=== PATIENT | male | born 1980 | race African-American/Black ===

== ENCOUNTER 2016-10-12 06:53 | Emergency (ER) | payer SELFPAY ==
[2016-10-12] MEDS ORDERED: KETOROLAC TROMETHAMINE INJ/PF 30 MG/1 ML SDV IV ONE (08:36)
[2016-10-12 09:20] LABS: ABSOLUTE BASOPHILS # (AUTO) 0.1 10^3/uL (0.0-0.2); ABSOLUTE EOSINOPHILS # (AUTO) 0.1 10^3/uL (0.0-0.6); ABSOLUTE LYMPHOCYTES (AUTO) 0.9 10^3/uL (0.5-4.7); ABSOLUTE MONOCYTES (AUTO) 0.7 10^3/uL (0.1-1.4); ABSOLUTE NEUT (AUTO) 3.4 10^3/uL (1.7-8.2); EOSINOPHILS % (AUTO) 2.6 % (0-6); HEMOGLOBIN 13.6 g/dL (13.5-17.0); HGB HCT DIFFERENCE -0.2; LYMPHOCYTES % (AUTO) 17.2 % (13-45); MEAN CORPUSCULAR HGB CONC 33.3 g/dL (32.0-36.0); MEAN CORPUSCULAR VOLUME 90 fl (80-97); MONOCYTES % (AUTO) 13.8 % (3-13); RED BLOOD COUNT 4.54 10^6/uL (4.35-5.55); RED CELL DISTRIBUTION WIDTH 14.2 % (11.5-14.0); SEGMENTED NEUTROPHILS % (AUTO) 65.4 % (42-78); WHITE BLOOD COUNT 5.2 10^3/uL (4.0-10.5)
[2016-10-12 09:27] LABS: APPEARANCE,URINE CLEAR; BILIRUBIN,URINE NEGATIVE (NEGATIVE); GLUCOSE, URINE NEGATIVE (NEGATIVE); KETONES,URINE NEGATIVE (NEGATIVE); LEUKOCYTE ESTERASE,URINE NEGATIVE (NEGATIVE); NITRITE,URINE NEGATIVE (NEGATIVE); PROTEIN,URINE NEGATIVE (NEGATIVE); URINE SPECIFIC GRAVITY 1.014; UROBILINOGEN,URINE NEGATIVE mg/dL (<2.0)
[2016-10-12 09:43] LABS: ALANINE AMINOTRANSFERASE 51 U/L (21-72); ALBUMIN 4.2 g/dL (3.5-5.0); ALKALINE PHOSPHATASE 64 U/L (38-126); ANION GAP 8 (5-19); ASPARTATE AMINO TRANSFERASE 37 U/L (17-59); BILIRUBIN,TOTAL 1.1 mg/dL (0.2-1.3); BLOOD UREA NITROGEN 31 mg/dL (7-20); CALCIUM 9.2 mg/dL (8.4-10.2); CARBON DIOXIDE 29 mmol/L (22-30); CHLORIDE 105 mmol/L (98-107); CREATININE RESULT 1.57 mg/dL (0.52-1.25); GLUCOSE 122 mg/dL (75-110); LIPASE 120.1 U/L (23-300); POTASSIUM 4.3 mmol/L (3.6-5.0); SODIUM 141.9 mmol/L (137-145); TOTAL PROTEIN 7.1 g/dL (6.3-8.2)
[2016-10-12 09:58] LABS: URINE BARBITURATES SCREEN NEGATIVE; URINE METHADONE SCREEN NEGATIVE; URINE OPIATES LOW NEGATIVE; URINE PHENCYCLIDINE SCREEN NEGATIVE
--- NOTE | 2016-10-12 10:15 | ER Document Report ---
ED GI/ - General Chief Complaint: Low Back Pain Stated Complaint: LOW BACK PAIN Mode of Arrival: Ambulatory Information source: Patient Notes: Patient presents complaining of 2 day history of right flank tenderness. Patient denies any urinary symptoms, nausea, vomiting, or diarrhea. Patient denies any specific injury. Patient denies any radiculopathy or paresthesia. Patient denies any IV drug use although does state that he did use cocaine 1 time 3 days ago. Patient denies any routine use of illicit substances. TRAVEL OUTSIDE OF THE [place] IN LAST 30 DAYS: No - HPI Patient complains to provider of: Flank pain. No: Abdominal pain Onset: Other - 2 days Timing/Duration: Persistent Quality of pain: Sharp Pain Level: 5 Location: Right flank Associated symptoms: denies: Diarrhea, Dysuria, Loss of appetite, Nausea, Urinary hesitancy, Urinary frequency, Urinary retention, Urinary urgency, Vomiting Exacerbated by: Movement Relieved by: Remaining still Similar symptoms previously: No Recently seen / treated by doctor: No - Related Data Allergies/Adverse Reactions: No Known Allergies Allergy (Unverified 10/12/16 07:01) Past Medical History - General Information source: Patient - Social History Smoking Status: Current Every Day Smoker Chew tobacco use (# tins/day): No Frequency of alcohol use: Occasional Drug Abuse: Cocaine Occupation: food storeroom clerk Family History: Reviewed & Not Pertinent Patient has suicidal ideation: No Patient has homicidal ideation: No - Past Medical History Cardiac Medical History: Reports: Hx Hypertension Renal/ Medical History: Denies: Hx Peritoneal Dialysis Past Surgical History: Reports: Hx Orthopedic Surgery - Immunizations Hx Diphtheria, Pertussis, Tetanus Vaccination: Yes Review of Systems - Review of Systems Constitutional: No symptoms reported. denies: Fever, Recent illness EENT: No symptoms reported Cardiovascular: No symptoms reported. denies: Chest pain Respiratory: No symptoms reported Gastrointestinal: No symptoms reported. denies: Abdominal pain, Diarrhea, Nausea, Vomiting Genitourinary: Flank pain. denies: Burning, Dysuria Male Genitourinary: No symptoms reported Musculoskeletal: Back pain Skin: No symptoms reported Hematologic/Lymphatic: No symptoms reported Neurological/Psychological: No symptoms reported Physical Exam - Vital signs Vitals: Temp Pulse Resp BP Pulse Ox 97.4 F 77 16 151/96 H 97 10/12/16 06:58 10/12/16 06:58 10/12/16 06:58 10/12/16 06:58 10/12/16 06:58 - General General appearance: Appears well, Alert In distress: None - HEENT Head: Normocephalic, Atraumatic Nasal: Normal Mouth/Lips: Normal Mucous membranes: Normal Pharynx: Normal Neck: Normal, Supple. No: Lymphadenopathy - Respiratory Respiratory status: No respiratory distress Chest status: Nontender Breath sounds: Normal. No: Rales, Rhonchi, Stridor, Wheezing Chest palpation: Normal - Cardiovascular Rhythm: Regular Heart sounds: S1 appreciated, S2 appreciated Murmur: No - Abdominal Inspection: Normal Distension: No distension Bowel sounds: Normal Tenderness: Nontender Organomegaly: No organomegaly - Back Back: CVA tenderness - Right. No: Vertebra tenderness - Extremities General upper extremity: Normal inspection, Normal ROM General lower extremity: Normal inspection, Normal ROM - Neurological Neuro grossly intact: Yes Cognition: Normal Ennice Coma Scale Eye Opening: Spontaneous Cecil Coma Scale Verbal: Oriented Cecil Coma Scale Motor: Obeys Commands Cecil Coma Scale Total: 15 - Psychological Associated symptoms: Normal affect, Normal mood - Skin Skin Temperature: Warm Skin Moisture: Dry Skin Color: Normal Course - Re-evaluation Re-evalutation: 10/12/16 10:[address] Lemos regarding patient presentation. Recommends CT Limited imaging for further evaluation of right flank pain 10/12/16 10:57 Patient states pain is better after pain medication. Patient states that he has been told that he does have some chronic kidney disease that he states is in stage III. Patient states that his pain is worse with movement and if he holds still he is not having any discomfort. Discussed worsening signs or symptoms that patient should return immediately for. Patient verbalized understanding and agrees with plan of care. - Vital Signs Vital signs: Temp Pulse Resp BP Pulse Ox 97.9 F 88 18 161/96 H 100 10/12/16 11:15 10/12/16 11:15 10/12/16 11:15 10/12/16 11:15 10/12/16 11:15 - Laboratory Result Diagrams: 10/12/16 08:50 10/12/16 08:50 Laboratory results interpreted by me: 10/12/16 10/12/16 08:50 08:50 RDW 14.2 H Monocytes % 13.8 H BUN 31 H Creatinine 1.57 H Est GFR (Non-Af Amer) 50 L Glucose 122 H 10/12/16 10:58 Labs- Entire Visit 10/12/16 10/12/16 10/12/16 08:50 08:50 09:00 WBC 5.2 RBC 4.54 Hgb 13.6 Hct 41.0 MCV 90 MCH 30.0 MCHC 33.3 RDW 14.2 H Plt Count 211 Seg Neutrophils % 65.4 Lymphocytes % 17.2 Monocytes % 13.8 H Eosinophils % 2.6 Basophils % 1.0 Absolute Neutrophils 3.4 Absolute Lymphocytes 0.9 Absolute Monocytes 0.7 Absolute Eosinophils 0.1 Absolute Basophils 0.1 Sodium 141.9 Potassium 4.3 Chloride 105 Carbon Dioxide 29 Anion Gap 8 BUN 31 H Creatinine 1.57 H Est GFR ( Amer) > 60 Est GFR (Non-Af Amer) 50 L Glucose 122 H Calcium 9.2 Total Bilirubin 1.1 Direct Bilirubin 0.0 AST 37 ALT 51 Alkaline Phosphatase 64 Total Protein 7.1 Albumin 4.2 Lipase 120.1 Urine Color YELLOW Urine Appearance CLEAR Urine pH 6.0 Ur Specific [place] 1.014 Urine Protein NEGATIVE Urine Glucose (UA) NEGATIVE Urine Ketones NEGATIVE Urine Blood NEGATIVE Urine Nitrite NEGATIVE Urine Bilirubin NEGATIVE Urine Urobilinogen NEGATIVE Ur Leukocyte Esterase NEGATIVE Urine WBC (Auto) 0 Urine RBC (Auto) 0 Urine Ascorbic Acid NEGATIVE Urine Opiates Screen Urine Methadone Screen Ur Barbiturates Screen Ur Phencyclidine Scrn Ur Amphetamines Screen U Benzodiazepines Scrn Urine Cocaine Screen U Marijuana (THC) Screen 10/12/16 09:00 WBC RBC Hgb Hct MCV MCH MCHC RDW Plt Count Seg Neutrophils % Lymphocytes % Monocytes % Eosinophils % Basophils % Absolute Neutrophils Absolute Lymphocytes Absolute Monocytes Absolute Eosinophils Absolute Basophils Sodium Potassium Chloride Carbon Dioxide Anion Gap BUN Creatinine Est GFR ( Amer) Est GFR (Non-Af Amer) Glucose Calcium Total Bilirubin Direct Bilirubin AST ALT Alkaline Phosphatase Total Protein Albumin Lipase Urine Color Urine Appearance Urine pH Ur Specific [place] Urine Protein Urine Glucose (UA) Urine Ketones Urine Blood Urine Nitrite Urine Bilirubin Urine Urobilinogen Ur Leukocyte Esterase Urine WBC (Auto) Urine RBC (Auto) Urine Ascorbic Acid Urine Opiates Screen NEGATIVE Urine Methadone Screen NEGATIVE Ur Barbiturates Screen NEGATIVE Ur Phencyclidine Scrn NEGATIVE Ur Amphetamines Screen NEGATIVE U Benzodiazepines Scrn NEGATIVE Urine Cocaine Screen UNCONFIRMED POSITIVE U Marijuana (THC) Screen NEGATIVE 03/16/17 13:21 - Diagnostic Test Radiology reviewed: Reports reviewed Discharge - Discharge Clinical Impression: Flank pain, Abnormal renal function test, Hx of essential hypertension Condition: Stable Disposition: HOME, SELF-CARE Instructions: Warm Packs ([facility]), Ice Packs ([facility]), Flank Pain ([facility]), Muscle Relaxers ([facility]), Kidney Function Abnormality ([facility]) Additional Instructions: Return immediately for any new or worsening symptoms Followup with your primary care provider, call tomorrow to make a followup appointment Your renal function test was abnormal today, follow-up with your primary care provider to have this reevaluated. Your blood pressure was also elevated today. See your doctor in 2 days to have this re-checked. Avoid any use of recreational drugs. Prescriptions: Cyclobenzaprine HCl [Flexeril 10 Mg Tablet] 10 mg PO TID #15 tablet Forms: Return to Work Referrals: [facility] [Provider Group] - Follow up as needed [facility] [Provider Group] - Follow up tomorrow
[2016-10-12 11:29] VITALS: BP 161/96
== END 2016-10-12 11:15 | disposition home or self-care (01) ==
LOC: ER 06:53
DX: M54.5 Low back pain (principal); R94.4 Abnormal results of kidney function studies; F17.200 Nicotine dependence, unspecified, uncomplicated; R10.9 Unspecified abdominal pain; I12.9 Hypertensive chronic kidney disease with stage 1 through stage 4 chronic kidney disease, or unspecified chronic kidney disease; N18.3 Chronic kidney disease, stage 3 (moderate)
CPT/HCPCS: 99283; 36415; 83690; 85025; 80053; 81001; 80307; 76380; J1885

== ENCOUNTER 2017-02-27 02:51 | Emergency (ER) | payer SELFPAY ==
[2017-02-27] MEDS ORDERED: ACETAMINOPHEN 325 MG TABLET PO ONE ×2 (03:18→06:47)
[2017-02-27] MEDS ORDERED: ONDANSETRON 4 MG TAB.RAPDIS PO ONE (03:18)
[2017-02-27] MEDS ORDERED: HYDROCHLOROTHIAZIDE 25 MG TABLET PO ONE (03:26)
[2017-02-27] MEDS ORDERED: LISINOPRIL 10 MG TABLET PO ONE (03:26)
--- NOTE | 2017-02-27 03:33 | ER Document Report ---
ED Blood Pressure Problem - General Chief Complaint: Headache Stated Complaint: HEADACHE X 2 HOURS Time Seen by Provider: 02/27/17 03:06 Mode of Arrival: Medic Information source: Patient Notes: 37-year-old male presents to ED for elevated blood pressure with severe headache after drinking 10 beers tonight. Patient has a history of hypertension but states she has not taken any of his medicines for at least a month.. He states he knows he takes lisinopril and 2 other medicines but he does not know what they are. TRAVEL OUTSIDE OF THE [place] IN LAST 30 DAYS: No - HPI Patient complains to provider of: High blood pressure, Other - Severe headache and alcohol abuse Onset: This evening Onset/Duration: Gradual Quality of pain: Sharp, Stabbing, Throbbing Severity: Severe Pain Level: 5 Problem is: Chronic problem Pt currently taking medication for problem: No - Patient states he supposed to be taken 3 different medicine but does not kn Associated symptoms: Dizziness, Headache, Other - Has been drinking beer tonight Similar symptoms previously: Yes Recently seen / treated by doctor: No - Related Data Allergies/Adverse Reactions: No Known Allergies Allergy (Unverified 10/12/16 07:01) Past Medical History - General Information source: Patient - Social History Smoking Status: Current Every Day Smoker Cigarette use (# per day): Yes Frequency of alcohol use: Social Drug Abuse: Cocaine Family History: Reviewed & Not Pertinent - Past Medical History Cardiac Medical History: Reports: Hx Hypertension Pulmonary Medical History: Reports: None EENT Medical History: Reports: None Neurological Medical History: Reports: None Endocrine Medical History: Reports: None Renal/ Medical History: Reports: None Malignancy Medical History: Reports None GI Medical History: Reports: None Musculoskeltal Medical History: Reports None Skin Medical History: Reports None Psychiatric Medical History: Reports: None Traumatic Medical History: Reports: None Infectious Medical History: Reports: None Past Surgical History: Reports: Hx Orthopedic Surgery - Immunizations Hx Diphtheria, Pertussis, Tetanus Vaccination: Yes Review of Systems - Review of Systems Constitutional: No symptoms reported EENT: No symptoms reported Cardiovascular: No symptoms reported Respiratory: No symptoms reported Gastrointestinal: No symptoms reported Genitourinary: No symptoms reported Male Genitourinary: No symptoms reported Musculoskeletal: No symptoms reported Skin: No symptoms reported Hematologic/Lymphatic: No symptoms reported Neurological/Psychological: Headaches -: Yes All other systems reviewed and negative Physical Exam - Vital signs Vitals: Temp Pulse Resp BP Pulse Ox 98.2 F 101 H 18 187/99 H 99 02/27/17 03:41 02/27/17 03:41 02/27/17 03:41 02/27/17 03:41 02/27/17 03:41 Interpretation: Normal - General General appearance: Appears well, Alert - HEENT Head: Normocephalic, Atraumatic Eyes: Normal Pupils: PERRL - Respiratory Respiratory status: No respiratory distress Chest status: Nontender Breath sounds: Normal Chest palpation: Normal - Cardiovascular Rhythm: Regular Heart sounds: Normal auscultation Murmur: No - Abdominal Inspection: Normal Distension: No distension Bowel sounds: Normal Tenderness: Nontender Organomegaly: No organomegaly - Back Back: Normal, Nontender - Extremities General upper extremity: Normal inspection, Nontender, Normal color, Normal ROM , Normal temperature General lower extremity: Normal inspection, Nontender, Normal color, Normal ROM , Normal temperature, Normal weight bearing. No: Lea's sign - Neurological Neuro grossly intact: Yes Cognition: Normal Orientation: AAOx4 [place] Coma Scale Eye Opening: Spontaneous [place] Coma Scale Verbal: Oriented [place] Coma Scale Motor: Obeys Commands [place] Coma Scale Total: 15 Speech: Normal Motor strength normal: LUE, RUE, LLE, RLE Sensory: Normal - Psychological Associated symptoms: Restlessness - Skin Skin Temperature: Warm Skin Moisture: Dry Skin Color: Normal Course - Re-evaluation Re-evalutation: 02/27/17 06:50 Patient up walking steady on his feet acting appropriate clinically sober. Patient was treated with IV fluids Tylenol and Zofran for his nausea and headache. He was treated with lisinopril and hydrochlorothiazide for his elevated blood pressure. CAT scan was performed which was negative due to his headache. - Vital Signs Vital signs: Temp Pulse Resp BP Pulse Ox 98.0 F 66 18 185/112 H 97 02/27/17 04:43 02/27/17 04:43 02/27/17 04:43 02/27/17 04:43 02/27/17 04:43 - Laboratory Laboratory results interpreted by me: 02/27/17 05:04 Urine Glucose (UA) 50 H Urine Blood SMALL H Discharge - Discharge Clinical Impression: Hypertension Qualifiers: Hypertension type: unspecified Qualified Code(s): I10 - Essential (primary) hypertension Headache Qualifiers: Headache type: unspecified Headache chronicity pattern: unspecified pattern Intractability: not intractable Qualified Code(s): R51 - Headache Disposition: HOME, SELF-CARE Instructions: Family Physicians / Practices Additional Instructions: HEADACHE: The physician does not feel that the headache you are experiencing has a serious underlying cause. Most headaches are due to emotional stress, with resultant muscle tension (tension headache). Occasionally, headaches are secondary to changes in the blood vessels of the scalp (vascular headache and migraine headache). Sometimes, a headache is the first symptom of another developing illness, such as a viral infection. You have no evidence of stroke, bleeding, meningitis, or other serious cause of your headache. The treatment of headaches varies with the severity and cause of the pain. Not all headaches need pain shots. In fact, there is evidence that using narcotics for headaches may make them worse in the long run. The physician will determine the therapy that's in your best interest. If you develop a fever, if the headache is different from any you've previously experienced, or if the headache progressively worsens, then call your physician at once or go to the emergency room. HIGH BLOOD PRESSURE, NOT TREAT: When your blood pressure was taken today it was elevated. Today's reading was __214/122 . We do not think you need to have your blood pressure treated today. Sometimes, stress or illness causes a temporary elevation of your blood pressure. We suggest that you get your blood pressure measured again during the next few days to see if this elevated blood pressure is more than a temporary abnormality. If your blood pressure is greater than 150/90 on each occasion, you must have treatment. Some simple things you can do to help are: If you have blood pressure medicine but aren't using it regularly, start taking it again. Get some aerobic exercise for at least 20 minutes on a daily basis. (See your doctor before beginning a new exercise program.) Eat a low-fat diet. Lose excess weight. Avoid salty foods and avoid adding salt to any of the foods you eat. Avoid diet pills, decongestants, "energizing" herbs, and other medicines that elevate blood pressure. If left untreated, hypertension greatly enhances your risk for developing heart disease and strokes. Please don't ignore this problem. HYDROCHLOROTHIAZIDE: Hydrochlorothiazide is a diuretic medication. Diuretics are often called "water pills." The medicine flushes excess salt and water from the body. Diuretics are used for fluid retention (such as heart failure, cirrhosis, or lung disease) and for blood pressure control. Often hydrochlorothiazide is combined with other medicines in the same pill. Most patients prefer to take the medicine in the morning. Hydrochlorothiazide makes extra urine, which can be a problem if you take the pill at night. Diuretics make you lose potassium. Sometimes a good diet with plenty of fruit is enough to replace it. Sometimes a potassium supplement is necessary. Or, hydrochlorothiazide may be combined with medicines that prevent potassium loss. We usually recommend a blood potassium test in a few weeks. Contact your doctor if you develop extreme fatigue, muscle weakness, lethargy, confusion, or palpitations. ANGIOTENSIN CONVERTING ENZYME INHIBITOR MEDICATION: "MARY inhibitor" drugs are used to lower high blood pressure (or to reduce the "work" of the heart in patients with heart failure). These drugs block an enzyme that makes your blood vessels constrict and makes you retain salt. The result is lower blood pressure. MARY inhibitors cause few side effects. The most common side effect is a dry nagging cough. Occasionally, lightheadedness may occur while you get used to the medicine. Some patients may retain extra potassium (this is a problem if you are taking potassium supplements, potassium-containing salt substitutes, or a potassium-retaining drug such as triamterene, spironolactone, or amiloride) . If you are taking lithium, the lithium level must be rechecked after starting an MARY inhibitor. MARY inhibitors should NOT be used during . Contact the doctor or return if you develop severe lightheadedness, wheeze , weakness, palpitations or other new symptoms. ANTINAUSEA MEDICATION: You have been given a medication to suppress nausea and vomiting. This type of medication can be given as a shot, pill, or suppository. It will usually last for many hours. Pills and shots usually last six to eight hours, suppositories last about 12 hours. For the typical illness, only one or two doses of the medication may be necessary. Mild lightheadedness may occur. This type of medicine can cause drowsiness. Do not drive or operate dangerous machinery while under its influence. Do not mix with alcohol. See your doctor at once if you have muscle spasms or tightness, or uncontrollable motions (particularly of the neck, mouth, or jaw). Persistent vomiting or severe lightheadedness should also be evaluated by the physician. Acetaminophen Acetaminophen may be taken for pain relief or fever control. It's much safer than aspirin, offering a wider range of "safe" dosages. It is safe during . Some brand names are Tylenol, Panadol, Datril, Anacin 3, Tempra, and Liquiprin. Acetaminophen can be repeated every four hours. The following are maximum recommended dosages: WEIGHT Dose Drops Elixir Chewable( 80mg) (LBS.) drprs=droppers tsp=teaspoon 6 40 mg .4 ml (1/2) 6-11 80 mg .8 ml (full) 1/2 tsp 1 tab 12-16 120 mg 1 1/2 drprs 3/4 tsp 1 1/2 tabs 17-23 160 mg 2 drprs 1 tsp 2 tabs 24-30 240 mg 3 drprs 1 1/2 tsp 3 tabs 30-35 320 mg 2 tsp 4 tabs 36-41 360 mg 2 1/4 tsp 4 1 /2 tabs 42-47 400 mg 2 1/2 tsp 5 tabs 48-53 480 mg 3 tsp 6 tabs 54-59 520 mg 3 1/4 tsp 6 1 /2 tabs 60-64 560 mg 3 1/2 tsp 7 tabs 65-70 600 mg 3 3/4 tsp 7 1 /2 tabs 71-76 640 mg 4 tsp 8 tabs 77-82 720 mg 4 1/2 tsp 9 tabs 83-88 800 mg 5 tsp 10 tabs >89 pounds or adults 650 mg to 900 mg Acetaminophen can be repeated every four hours. Maximum daily dose not to exceed 4000 mg. These maximum recommended dosages are slightly higher than the dosages written on the product container, but these dosages are very safe and well below the toxic dosage for acetaminophen. FOLLOW-UP CARE: If you have been referred to a physician for follow-up care, call the physician s office for an appointment as you were instructed or within the next two days. If you experience worsening or a significant change in your symptoms, notify the physician immediately or return to the Emergency Department at any time for re-evaluation. Forms: Elevated Blood Pressure, Smoking Cessation Education
--- NOTE | 2017-02-27 04:35 | RADIOLOGY REPORT (SQ) ---
EXAM DESCRIPTION: CT HEAD WITHOUT COMPLETED DATE/TIME: 02/27/2017 4:12 am REASON FOR STUDY: htn and headache COMPARISON: None. TECHNIQUE: Axial images acquired through the brain without intravenous contrast. Images reviewed wi th bone, brain and subdural windows. Images stored on PACS. All CT scanners at this facility use dose modulation, iterative reconstruction, and/or weight based d osing when appropriate to reduce radiation dose to as low as reasonably achievable (ALARA). [facility]: Dose Right [facility]: CareDose [facility]: Dose Right [facility]: Teradose 4D [facility]: Smart Giggle RADIATION DOSE: Up-to-date CT equipment and radiation dose reduction techniques were employed. CTDIv ol: 49.9 mGy. DLP: 980 mGy-cm. mGy. LIMITATIONS: None. FINDINGS: VENTRICLES: Normal size and contour. CEREBRUM: No masses. No hemorrhage. No midline shift. Normal west/white matter differentiation. N o evidence for acute infarction. CEREBELLUM: No masses. No hemorrhage. No alteration of density. No evidence for acute infarction. EXTRAAXIAL SPACES: No fluid collections. No masses. ORBITS AND GLOBE: No intra- or extraconal masses. Normal contour of globe without masses. CALVARIUM: No fracture. PARANASAL SINUSES: No fluid or mucosal thickening. SOFT TISSUES: No mass or hematoma. OTHER: No other significant finding. IMPRESSION: NORMAL BRAIN CT WITHOUT CONTRAST. TECHNICAL DOCUMENTATION: JOB ID: [id number] Quality ID # [id number]: Final reports with documentation of one or more dose reduction techniques (e.g., Au tomated exposure control, adjustment of the mA and/or kV according to patient size, use of iterative reconstruction technique) 2010 [employer]- All Rights Reserved
[2017-02-27 05:10] VITALS: BP 214/122
[2017-02-27 05:33] LABS: APPEARANCE,URINE CLEAR; BILIRUBIN,URINE NEGATIVE (NEGATIVE); GLUCOSE, URINE 50 mg/dL (NEGATIVE); KETONES,URINE NEGATIVE (NEGATIVE); LEUKOCYTE ESTERASE,URINE NEGATIVE (NEGATIVE); NITRITE,URINE NEGATIVE (NEGATIVE); PROTEIN,URINE NEGATIVE (NEGATIVE); URINE SPECIFIC GRAVITY 1.006; UROBILINOGEN,URINE NEGATIVE mg/dL (<2.0)
[2017-02-27 05:47] LABS: URINE BARBITURATES SCREEN NEGATIVE; URINE METHADONE SCREEN NEGATIVE; URINE OPIATES LOW NEGATIVE; URINE PHENCYCLIDINE SCREEN NEGATIVE
== END 2017-02-27 06:55 | disposition home or self-care (01) ==
LOC: ER 02:51
DX: I10 Essential (primary) hypertension (principal); T46.4X6A Underdosing of angiotensin-converting-enzyme inhibitors, initial encounter; Z91.14 Patient's other noncompliance with medication regimen; R51 Headache; R42 Dizziness and giddiness; R11.0 Nausea; F17.210 Nicotine dependence, cigarettes, uncomplicated
CPT/HCPCS: 99284; 81001; 80307; 70450; S0119

== ENCOUNTER 2017-04-06 19:18 | Emergency (ER) | payer SELFPAY ==
[2017-04-06] MEDS ORDERED: NORMAL SALINE 500 ML IV ONE (19:56)
[2017-04-06 20:29] LABS: APPEARANCE,URINE CLEAR; BILIRUBIN,URINE NEGATIVE (NEGATIVE); GLUCOSE, URINE NEGATIVE (NEGATIVE); KETONES,URINE NEGATIVE (NEGATIVE); LEUKOCYTE ESTERASE,URINE NEGATIVE (NEGATIVE); NITRITE,URINE NEGATIVE (NEGATIVE); PROTEIN,URINE 100 mg/dL (NEGATIVE); URINE SPECIFIC GRAVITY 1.009; UROBILINOGEN,URINE NEGATIVE mg/dL (<2.0)
[2017-04-06] MEDS ORDERED: HYDROCHLOROTHIAZIDE 12.5 MG CAPSULE PO ONE (21:09)
[2017-04-06] MEDS ORDERED: LISINOPRIL 10 MG TABLET PO ONE (21:09)
[2017-04-06 21:14] LABS: ABSOLUTE BASOPHILS # (AUTO) 0.1 10^3/uL (0.0-0.2); ABSOLUTE EOSINOPHILS # (AUTO) 0.1 10^3/uL (0.0-0.6); ABSOLUTE LYMPHOCYTES (AUTO) 1.2 10^3/uL (0.5-4.7); ABSOLUTE MONOCYTES (AUTO) 0.8 10^3/uL (0.1-1.4); BASOPHILS % (AUTO) 1.4 % (0-2); EOSINOPHILS % (AUTO) 1.6 % (0-6); HEMATOCRIT 43.4 % (37.9-51.0); HEMOGLOBIN 14.5 g/dL (13.5-17.0); HGB HCT DIFFERENCE 0.1; LYMPHOCYTES % (AUTO) 16.5 % (13-45); MEAN CORPUSCULAR HGB CONC 33.4 g/dL (32.0-36.0); MEAN CORPUSCULAR VOLUME 90 fl (80-97); MONOCYTES % (AUTO) 11.4 % (3-13); RED BLOOD COUNT 4.82 10^6/uL (4.35-5.55); RED CELL DISTRIBUTION WIDTH 14.2 % (11.5-14.0); SEGMENTED NEUTROPHILS % (AUTO) 69.1 % (42-78); WHITE BLOOD COUNT 7.2 10^3/uL (4.0-10.5)
--- NOTE | 2017-04-06 21:17 | ER Document Report ---
ED General - General Chief Complaint: Abdominal Pain Stated Complaint: ABDOMINAL PAIN Time Seen by Provider: 04/06/17 21:05 Notes: Patient says that he has been experiencing abdominal pains since early in the week. Got worse about 2 days ago. Pain is located primarily in the center of his abdomen. Yesterday he vomited about 5 times. Says he has not had a bowel movement for a couple of days when his normal is about 3 times per day. Patient says he used to drink alcohol very heavily, but he is cut back significantly and now only drinks a few beers. His tells a different story and says he still drinking very heavily and also using cocaine. Patient was admitted at [facility] for a week about a year ago due to kidney problems. He suffers from very high blood pressure and is out of his current medicines and does not know the names of 2 of the 3 medicines. He knows he is on amlodipine. Denies chest pain, shortness of breath, etc. TRAVEL OUTSIDE OF THE [place] IN LAST 30 DAYS: No - Related Data Allergies/Adverse Reactions: No Known Allergies Allergy (Verified 04/06/17 19:41) Past Medical History - Social History Smoking Status: Unknown if Ever Smoked Cigarette use (# per day): No Frequency of alcohol use: Heavy - Although he says he is drinking a lot less alcohol in recent weeks. Drug Abuse: Cocaine - Was positive for cocaine on his drug test in February, of this year and also on a previous drug test in the spring. Family History: Reviewed & Not Pertinent - Past Medical History Cardiac Medical History: Reports: Hx Hypertension Denies: Hx Coronary Artery Disease, Hx Heart Attack Endocrine Medical History: Denies: Hx Diabetes Mellitus Type 1, Hx Diabetes Mellitus Type 2 Past Surgical History: Reports: Hx Herniorrhaphy, Hx Orthopedic Surgery - Immunizations Hx Diphtheria, Pertussis, Tetanus Vaccination: Yes Review of Systems - Review of Systems Notes: REVIEW OF SYSTEMS: CONSTITUTIONAL : Denies fever. EENT: Denies eye, ear, nose or mouth or throat pain or other symptoms. CARDIOVASCULAR: Denies chest pain. Whenever he is asked to indicate where his pain is located, the patient points to the epigastrium and upper mid abdomen. RESPIRATORY: Denies cough, chest congestion, or shortness of breath. GASTROINTESTINAL: See HPI. Denies diarrhea. Vomited 5 times yesterday. GENITOURINARY: Denies difficulty or painful urinating, urinary frequency, blood in urine. MUSCULOSKELETAL: Denies back or neck pain. Denies joint pain or swelling. SKIN: Denies rash or skin lesions. NEUROLOGICAL: Denies LOC or altered mental status. Denies headache. Denies sensory loss or motor deficits. ALL OTHER SYSTEMS REVIEWED AND NEGATIVE. Physical Exam - Vital signs Vitals: Temp Pulse Resp BP Pulse Ox 98.5 F 88 20 212/118 H 99 04/06/17 19:41 04/06/17 19:41 04/06/17 19:41 04/06/17 19:41 04/06/17 19:41 Interpretation: Hypertensive - 212/118 from triage. - Notes Notes: PHYSICAL EXAMINATION: GENERAL: Well-appearing, in no acute distress. Anxious blood pressure very high but other vital signs are normal. HEAD: Atraumatic, normocephalic. ENT: oropharynx clear without exudates. Moist mucous membranes. NECK: Normal range of motion, supple. LUNGS: Breath sounds clear and equal bilaterally. HEART: Regular rate and rhythm without murmurs. ABDOMEN: Soft, nontender. No guarding or rebound. No masses felt. No bruits heard. BACK: No tenderness throughout entire back. EXTREMITIES: Normal range of motion without pain. NEUROLOGICAL: Normal speech, normal gait. Normal sensory, motor, and reflex exams. Awake, alert, and oriented x3. Cranial nerves normal. PSYCH: Normal mood, normal affect. SKIN: Warm, dry, no rashes. Course - Re-evaluation Re-evalutation: 04/06/17 23:42 Patient initially was given 20 mg of lisinopril and 12.5 mg of hydrochlorothiazide. His blood pressure did not improve and in fact, some of the readings were significantly higher. However, I question the accuracy of those readings, some of which showed systolics of over 250 and diastolics of over 180. With a larger cuff, we were able to obtain a more likely accurate blood pressure of 230/108. I gave the patient 0.2 mg of clonidine p.o. along with some been until for his discomfort. Currently, at this time, patient's blood pressure is 180/100 and he looks and acts like he is much more comfortable. Patient's troponin was reported as 0.08, which is in the indeterminate zone. Considering that the patient has had this pain for 2-4 days and that the pain is located in the epigastrium and the value of the troponin is just barely into the indeterminate zone, I do not think it is of concern. Additionally, patient has a history of some renal insufficiency for which he was admitted at [facility] for a week about a year ago. He has current creatinines on tonight's as well as previous chemistry that were 1.4 and 1.5 so the patient does have some early signs of renal disease and that could account for very slight increase in value of the troponin, With no ischemic changes noted on the patient's EKG and no other significant abnormalities noted, as we see here, I think the patient is safe to be discharged home with the plan to get him back on blood pressure medications.. - Vital Signs Vital signs: Temp Pulse Resp BP Pulse Ox 98.5 F 88 20 170/90 H 95 04/06/17 19:41 04/06/17 19:41 04/06/17 23:30 04/06/17 23:58 04/06/17 23:30 - Laboratory Result Diagrams: 04/06/17 20:45 04/06/17 22:28 Laboratory results interpreted by ne: 04/06/17 04/06/17 04/06/17 20:17 20:45 22:28 RDW 14.2 H Potassium 3.5 L Creatinine 1.45 H Est GFR (Non-Af Amer) 54 L Urine Protein 100 H Urine Blood SMALL H - EKG Interpretation by Wy EKG shows normal: Sinus rhythm Rate: Normal Rhythm: NSR Additional EKG results interpreted by me: 04/07/17 00:08 EKG showed no acute changes. Discharge - Discharge Clinical Impression: Abdominal pain, Hypertension Condition: Stable Disposition: HOME, SELF-CARE Additional Instructions: ABDOMINAL PAIN: There are many causes of abdominal pain. Pain can mean a serious problem requiring surgery (such as appendicitis). It can also be an innocent problem that goes away on its own (such as a viral infection). Often, time must pass to determine the cause of pain. The physician does not feel that hospitalization is necessary, at present. Things may change within the next 24 hours. Call the doctor or come back for re- examination if any problems occur, such as: (1) Pain that becomes more severe, steady, or becomes concentrated in one specific area. Also, pain that is more severe with movement or coughing. (2) Vomiting that persists or becomes more frequent. (3) Blood in the vomitus, urine, or bowel movements. Blood in the stool may have a tarry or black appearance. (4) Shaking chills or fever greater than 100 degrees F. (5) The abdomen becomes more distended or swollen. (6) Bowel movements cease. (7) Failure to improve as expected. HIGH BLOOD PRESSURE REQUIRING TREATMENT: Your blood pressure is high. This is called "hypertension." Today's reading was 212/118 (normal is less than 140/90). Your history and exam suggest that this is not a temporary problem. You need treatment of your blood pressure. If left untreated, high blood pressure greatly increases your risk of heart attack and stroke. Please don't ignore this problem. If you have blood pressure medicine but aren't using it regularly, start taking it again. Some simple things you can do to help are: Get some aerobic exercise for at least 20 minutes on a daily basis. (See your doctor before beginning any new exercise program.) Eat a low-fat diet. Lose excess weight. Avoid salty foods and avoid adding salt to any of the foods you eat. Avoid diet pills, decongestants, "energizing" herbs, and other medicines that elevate blood pressure. There are many different medicines that treat blood pressure. If your medication causes unpleasant side effects, call your doctor. There are others you can try. Treating hypertension is a life-long investment in your health. CLONIDINE (CATAPRES): Clonidine is blood-pressure medicine. It works in your brain, making the nervous system relax the blood vessels. This medicine can also be used for symptoms of narcotic withdrawal. Clonidine frequently causes dry mouth, drowsiness, and dizziness. These symptoms go away as you continue to use it. Rest for the first couple of days. Don't drive or use machinery until you're back to normal. Never stop clonidine suddenly! There can be a "rebound" severe increase in blood pressure, headache, and agitation. Be sure you always have enough of the medicine. Call the doctor if you have any new symptoms such as skin rash, weakness, severe lightheadedness, chest pain, headache, or depression. HYDROCHLOROTHIAZIDE: Hydrochlorothiazide is a diuretic medication. Diuretics are often called "water pills." The medicine flushes excess salt and water from the body. Diuretics are used for fluid retention (such as heart failure, cirrhosis, or lung disease) and for blood pressure control. Often hydrochlorothiazide is combined with other medicines in the same pill. Most patients prefer to take the medicine in the morning. Hydrochlorothiazide makes extra urine, which can be a problem if you take the pill at night. Diuretics make you lose potassium. Sometimes a good diet with plenty of fruit is enough to replace it. Sometimes a potassium supplement is necessary. Or, hydrochlorothiazide may be combined with medicines that prevent potassium loss. We usually recommend a blood potassium test in a few weeks. Contact your doctor if you develop extreme fatigue, muscle weakness, lethargy, confusion, or palpitations. ANGIOTENSIN CONVERTING ENZYME INHIBITOR MEDICATION: "MARY inhibitor" drugs are used to lower high blood pressure (or to reduce the "work" of the heart in patients with heart failure). These drugs block an enzyme that makes your blood vessels constrict and makes you retain salt. The result is lower blood pressure. MARY inhibitors cause few side effects. The most common side effect is a dry nagging cough. Occasionally, lightheadedness may occur while you get used to the medicine. Some patients may retain extra potassium (this is a problem if you are taking potassium supplements, potassium-containing salt substitutes, or a potassium-retaining drug such as triamterene, spironolactone, or amiloride) . If you are taking lithium, the lithium level must be rechecked after starting an MARY inhibitor. MARY inhibitors should NOT be used during . Contact the doctor or return if you develop severe lightheadedness, wheeze , weakness, palpitations or other new symptoms. Anxiety The physician feels that some of your health problems are being caused by anxiety. Anxiety affects your health in many ways. Anxiety alone can cause palpitations, sweats, chest pains, abdominal pains, shortness of breath, and headaches. It contributes to ulcer disease, high blood pressure, irritable bowel syndrome, and has been shown to cause flare-ups of many other diseases. Anxiety is not a simple disorder to treat. If the anxiety is due to recent life stresses, you may simply need time to "work through" the changes. If the anxiety is due to an underlying unhappiness with yourself or due to psychiatric disturbance, professional help will be needed. Your physician can refer you for further help if needed. Anti-anxiety medication is occasionally given if the stress is acute or if you are having trouble sleeping. Chronic or frequent use of these medications is not a good idea because the body becomes reliant on it, preventing you from dealing with life's normal stresses. I have prescribed Vistaril for you to take for relaxation and stress and anxiety. Aspirin Aspirin has been shown to have a beneficial effect on blood circulation by reducing the clotting effect of platelets in the blood. These beneficial effects can be achieved by taking just a single baby (62.5 mg) aspirin a day. It is recommended that any person over the age of forty take a single baby aspirin every day for heart and brain circulation, unless you are allergic to aspirin or have some significant bleeding disorder. It is strongly recommended that people who have proven cardiac or blood circulation disturbances should take a baby aspirin every day. FOLLOW-UP CARE: If you have been referred to a physician for follow-up care, call the physician s office for an appointment as you were instructed or within the next two days. If you experience worsening or a significant change in your symptoms, notify the physician immediately or return to the Emergency Department at any time for re-evaluation. Be sure you do not let your blood pressure medicines run out in the future. It is extremely important that you keep good control of your blood pressure. Prescriptions: Hydroxyzine HCl 50 mg PO Q6HP PRN #30 tablet PRN Reason: Anxiety Clonidine HCl 0.2 mg PO QAM #30 tablet Hydrochlorothiazide 12.5 mg PO QAM #30 capsule Lisinopril 20 mg PO DAILY #30 tablet
[2017-04-06 22:19] LABS: URINE BARBITURATES SCREEN NEGATIVE; URINE METHADONE SCREEN NEGATIVE; URINE OPIATES LOW NEGATIVE; URINE PHENCYCLIDINE SCREEN NEGATIVE
[2017-04-06] MEDS ORDERED: DICYCLOMINE HCL 20 MG TABLET PO ONE (22:36)
[2017-04-06] MEDS ORDERED: CLONIDINE HCL 0.2 MG TABLET PO ONE (22:37)
[2017-04-06] MEDS ORDERED: HYDROXYZINE PAMOATE 50 MG CAPSULE PO ONE (22:45)
[2017-04-06 23:02] LABS: ALANINE AMINOTRANSFERASE 64 U/L (21-72); ALBUMIN 4.3 g/dL (3.5-5.0); ALCOHOL < 10 mg/dL (NONE DETECTED); ALKALINE PHOSPHATASE 105 U/L (38-126); ANION GAP 10 (5-19); ASPARTATE AMINO TRANSFERASE 35 U/L (17-59); BILIRUBIN,DIRECT 0.3 mg/dL (0.0-0.4); BILIRUBIN,TOTAL 0.9 mg/dL (0.2-1.3); BLOOD UREA NITROGEN 17 mg/dL (7-20); CARBON DIOXIDE 29 mmol/L (22-30); CHLORIDE 101 mmol/L (98-107); CREATININE RESULT 1.45 mg/dL (0.52-1.25); GLUCOSE 95 mg/dL (75-110); LIPASE 92.5 U/L (23-300); POTASSIUM 3.5 mmol/L (3.6-5.0); SODIUM 140.3 mmol/L (137-145); TOTAL PROTEIN 6.9 g/dL (6.3-8.2)
[2017-04-06] MEDS ORDERED: ASPIRIN 81 MG TABLET, CHEWABLE PO ONE (23:30)
[2017-04-06 23:59] VITALS: BP 170/90
--- NOTE | 2017-04-07 00:05 | RADIOLOGY REPORT (SQ) ---
EXAM DESCRIPTION: CHEST PA/LAT COMPLETED DATE/TIME: 04/06/2017 11:46 pm REASON FOR STUDY: Epigastric and lower anterior chest pain COMPARISON: None. EXAM PARAMETERS: NUMBER OF VIEWS: two views TECHNIQUE: Digital Frontal and Lateral radiographic views of the chest acquired. RADIATION DOSE: NA LIMITATIONS: none FINDINGS: LUNGS AND PLEURA: No opacities, masses or pneumothorax. No pleural effusion. MEDIASTINUM AND HILAR STRUCTURES: No masses or contour abnormalities. HEART AND VASCULAR STRUCTURES: Heart normal size. No evidence for failure. BONES: No acute findings. HARDWARE: None in the chest. OTHER: No other significant finding. IMPRESSION: No acute findings. TECHNICAL DOCUMENTATION: JOB ID: [id number] [employer]- All Rights Reserved
--- NOTE | 2017-04-07 06:47 | EKG REPORT ---
SEVERITY:- ABNORMAL ECG - SINUS RHYTHM NONSPECIFIC T ABNORMALITIES, LATERAL LEADS : Confirmed by: Brett Montelongo MD 07-Apr-2017 06:47:08
== END 2017-04-07 00:21 | disposition home or self-care (01) ==
LOC: ER 19:18
DX: R10.13 Epigastric pain (principal); I10 Essential (primary) hypertension; T46.1X6A Underdosing of calcium-channel blockers, initial encounter; Z91.128 Patient's intentional underdosing of medication regimen for other reason; Z91.14 Patient's other noncompliance with medication regimen; E11.9 Type 2 diabetes mellitus without complications; R19.4 Change in bowel habit; R11.10 Vomiting, unspecified
CPT/HCPCS: 93005; 99284; 96360; 36415; 80307 ×2; 83690; 85025; 80053; 81001; 84484; 71020; 93010; J3490; J7040

== ENCOUNTER 2017-04-10 21:21 | Emergency (ER) | payer SELFPAY ==
[2017-04-10] MEDS ORDERED: ASPIRIN 81 MG TABLET, CHEWABLE PO ONE (21:34)
--- NOTE | 2017-04-10 22:03 | RADIOLOGY REPORT (SQ) ---
EXAM DESCRIPTION: CHEST SINGLE VIEW COMPLETED DATE/TIME: 04/10/2017 9:51 pm REASON FOR STUDY: chest pain COMPARISON: 04/06/2017 EXAM PARAMETERS: NUMBER OF VIEWS: One view. TECHNIQUE: Single frontal radiographic view of the chest acquired. RADIATION DOSE: NA LIMITATIONS: None. FINDINGS: LUNGS AND PLEURA: No opacities, masses or pneumothorax. No pleural effusion. MEDIASTINUM AND HILAR STRUCTURES: No masses. Contour normal. HEART AND VASCULAR STRUCTURES: Heart normal in size. Normal vasculature. BONES: No acute findings. HARDWARE: None in the chest. OTHER: No other significant finding. IMPRESSION: NO ACUTE RADIOGRAPHIC FINDING IN THE CHEST. TECHNICAL DOCUMENTATION: JOB ID: [id number]
[2017-04-10 22:26] LABS: ABSOLUTE BASOPHILS # (AUTO) 0.1 10^3/uL (0.0-0.2); ABSOLUTE EOSINOPHILS # (AUTO) 0.2 10^3/uL (0.0-0.6); ABSOLUTE LYMPHOCYTES (AUTO) 1.3 10^3/uL (0.5-4.7); ABSOLUTE MONOCYTES (AUTO) 0.7 10^3/uL (0.1-1.4); ABSOLUTE NEUT (AUTO) 3.5 10^3/uL (1.7-8.2); BASOPHILS % (AUTO) 1.4 % (0-2); EOSINOPHILS % (AUTO) 3.2 % (0-6); HEMATOCRIT 42.1 % (37.9-51.0); HEMOGLOBIN 14.1 g/dL (13.5-17.0); HGB HCT DIFFERENCE 0.2; LYMPHOCYTES % (AUTO) 22.1 % (13-45); MEAN CORPUSCULAR HEMOGLOBIN 30.2 pg (27.0-33.4); MEAN CORPUSCULAR HGB CONC 33.4 g/dL (32.0-36.0); MEAN CORPUSCULAR VOLUME 90 fl (80-97); MONOCYTES % (AUTO) 11.7 % (3-13); RED BLOOD COUNT 4.66 10^6/uL (4.35-5.55); RED CELL DISTRIBUTION WIDTH 14.1 % (11.5-14.0); SEGMENTED NEUTROPHILS % (AUTO) 61.6 % (42-78); WHITE BLOOD COUNT 5.7 10^3/uL (4.0-10.5)
--- NOTE | 2017-04-10 22:37 | EKG REPORT ---
SEVERITY:- ABNORMAL ECG - SINUS RHYTHM ABNORMAL T, CONSIDER ISCHEMIA, LATERAL LEADS : Confirmed by: Steven Escobar 10-Apr-2017 22:36:26
[2017-04-10 22:41] LABS: ALANINE AMINOTRANSFERASE 58 U/L (21-72); ALBUMIN 3.9 g/dL (3.5-5.0); ALKALINE PHOSPHATASE 81 U/L (38-126); ANION GAP 8 (5-19); ASPARTATE AMINO TRANSFERASE 39 U/L (17-59); BILIRUBIN,DIRECT 0.4 mg/dL (0.0-0.4); BILIRUBIN,TOTAL 0.6 mg/dL (0.2-1.3); BLOOD UREA NITROGEN 19 mg/dL (7-20); CALCIUM 10.1 mg/dL (8.4-10.2); CARBON DIOXIDE 30 mmol/L (22-30); CHLORIDE 102 mmol/L (98-107); CREATINE KINASE 360 U/L (55-170); CREATININE RESULT 1.64 mg/dL (0.52-1.25); GLUCOSE 94 mg/dL (75-110); LIPASE 102.4 U/L (23-300); POTASSIUM 4.5 mmol/L (3.6-5.0); SODIUM 140.3 mmol/L (137-145); TOTAL PROTEIN 6.4 g/dL (6.3-8.2)
[2017-04-10 22:55] LABS: APPEARANCE,URINE CLEAR; BILIRUBIN,URINE NEGATIVE (NEGATIVE); GLUCOSE, URINE NEGATIVE (NEGATIVE); KETONES,URINE NEGATIVE (NEGATIVE); LEUKOCYTE ESTERASE,URINE NEGATIVE (NEGATIVE); NITRITE,URINE NEGATIVE (NEGATIVE); PROTEIN,URINE 30 mg/dL (NEGATIVE); UROBILINOGEN,URINE NEGATIVE mg/dL (<2.0)
[2017-04-10] MEDS ORDERED: AMLODIPINE BESYLATE 10 MG TABLET PO ONE (23:35)
[2017-04-11 00:34] LABS: URINE BARBITURATES SCREEN NEGATIVE; URINE METHADONE SCREEN NEGATIVE; URINE OPIATES LOW NEGATIVE; URINE PHENCYCLIDINE SCREEN NEGATIVE
--- NOTE | 2017-04-11 01:27 | ER Document Report ---
ED General - General Chief Complaint: Chest Pain Stated Complaint: ABDOMINAL PAIN Time Seen by Provider: 04/10/17 23:27 Notes: Patient is a 37-year-old male who presents with complaint of abdominal pain. He said some nausea. No vomiting. Says he has had a decrease in bowel movements. He has also noticed some abdominal distention. He says his pain is in the epigastrium and radiates posteriorly. He does have a former history of alcoholism. He says he does not drink heavily every day anymore. He denies any drug use. He does have a former history of cocaine. He was seen here not long ago and his workup was negative at that time except for him having very high blood pressure. He says he is concerned that his blood pressure continues to run high despite the prescribed medications. He was prescribed lisinopril and hydrochlorothiazide clonidine. He takes all these medications one time in the morning. He does not take the evening antihypertensives. He does not yet have a primary care doctor. Denies any chest pain or shortness of breath. He denies any severe headaches. TRAVEL OUTSIDE OF THE [place] IN LAST 30 DAYS: No - Related Data Allergies/Adverse Reactions: No Known Allergies Allergy (Verified 04/10/17 21:30) Past Medical History - Social History Smoking Status: Never Smoker Chew tobacco use (# tins/day): No Frequency of alcohol use: Occasional Drug Abuse: Marijuana Family History: Reviewed & Not Pertinent Patient has suicidal ideation: No Patient has homicidal ideation: No - Past Medical History Cardiac Medical History: Reports: Hx Hypertension Denies: Hx Coronary Artery Disease, Hx Heart Attack Endocrine Medical History: Denies: Hx Diabetes Mellitus Type 1, Hx Diabetes Mellitus Type 2 Renal/ Medical History: Denies: Hx Peritoneal Dialysis Past Surgical History: Reports: Hx Herniorrhaphy, Hx Orthopedic Surgery - Immunizations Hx Diphtheria, Pertussis, Tetanus Vaccination: Yes Review of Systems - Review of Systems Notes: My Normal Review Basic REVIEW OF SYSTEMS: CONSTITUTIONAL : Denies fever, chills, or sweats. Denies recent illness. EENT: Denies eye, ear, throat, or mouth pain or symptoms. Denies nasal or sinus congestion. CARDIOVASCULAR: Denies chest pain. RESPIRATORY: Denies cough, cold, or chest congestion. Denies shortness of breath, difficulty breathing, or wheezing. GASTROINTESTINAL: Generalized abdominal pain. Some nausea but no vomiting. He planes of some constipation. GENITOURINARY: Denies difficulty urinating, painful urination, burning, frequency, or blood in urine. MUSCULOSKELETAL: Denies neck or back pain or joint pain or swelling. SKIN: Denies rash or skin lesions. NEUROLOGICAL: Denies altered mental status or loss of consciousness. Denies headache. Denies weakness or paralysis or loss of use of either side. Denies problems with gait or speech. Denies sensory or motor loss. ALL OTHER SYSTEMS REVIEWED AND NEGATIVE. Physical Exam - Vital signs Vitals: Temp Pulse Resp BP Pulse Ox 98.1 F 76 22 H 196/129 H 99 04/10/17 21:33 04/10/17 21:33 04/10/17 21:33 04/10/17 21:33 04/10/17 21:33 - Notes Notes: General Appearance: Well nourished, alert, cooperative, no acute distress, no obvious discomfort. Well-appearing. Vitals: reviewed, See vital signs table. Head: no swelling or tenderness to the head Eyes: PERRL, EOMI, Conjuctiva clear Mouth: No decreasd moisture Lungs: No wheezing, No rales, No rhonci, No accessory muscle use, good air exchange bilaterally. Heart: Normal rate, Regular rythm, No murmur, no rub Abdomen: Normal BS, soft, No rigidity, mild to moderate epigastric abdominal tenderness to palpation., No guarding, no rebound, patient does have some mild abdominal distention. Extremities: strength 5/5 in all extremities, good pulses in all extremities, no swelling or tenderness in the extremities, no edema. Skin: warm, dry, appropriate color, no rash Neuro: speech clear, oriented x 3, normal affect, responds appropriately to questions. Course - Re-evaluation Re-evalutation: 04/11/17 03:39 CT scan abdomen pelvis with contrast was performed. Patient has a leukocytosis but he has had this recurrent chronic abdominal pain and also has chronic hypertension with epigastric pain radiates to the back. I therefore thought CT scan was important to help rule out any type of aortic aneurysm. I did do with contrast the patient felt that his pain could be related to constipation. The contrast will also help locate his bowels further and also help with the constipation if that is indeed causing his pain. After the CT scan the patient says he felt much improved as since taking the contrast he is able to heads have a large bowel movement and now feels better. I did give a dose of amlodipine tonight. His blood pressure still is running high. I compared to his previous visit and his blood pressure seems to stay still systolically in the 200s-190s and diastolically in the 110s-130s. Patient says this appears to be what his blood pressures been running. He does not have a primary care doctor as of yet. He is already on lisinopril and hydrochlorothiazide and clonidine in the morning. I will start him on amlodipine at night. 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 Patient agrees to follow up with the auto vinyl top installer. I strongly encouraged him return to ER if his chest pain, headaches, shortness of breath, or worsening abdominal pain. Patient agrees with plan and will be discharged home. Dictation of this chart was performed using voice recognition software; therefore, there may be some unintended grammatical errors. - Vital Signs Vital signs: Temp Pulse Resp BP Pulse Ox 98.1 F 76 24 H 177/132 H 98 04/10/17 21:33 04/10/17 21:33 04/11/17 02:40 04/11/17 02:37 04/11/17 02:40 - Laboratory Result Diagrams: 04/10/17 22:10 04/10/17 22:10 Laboratory results interpreted by me: 04/10/17 04/10/17 04/10/17 22:10 22:10 22:24 RDW 14.1 H Creatinine 1.64 H Est GFR ( Amer) 57 L Est GFR (Non-Af Amer) 47 L Creatine Kinase 360 H Urine Protein 30 H Discharge - Discharge Clinical Impression: Abdominal pain Qualifiers: Abdominal location: epigastric Qualified Code(s): R10.13 - Epigastric pain Hypertension Qualifiers: Hypertension type: unspecified Qualified Code(s): I10 - Essential (primary) hypertension Condition: Good Disposition: HOME, SELF-CARE Additional Instructions: NORMAL EXAM AND WORKUP: At this time, your examination and workup show no significant abnormality. No significant abnormal physical findings are noted. All laboratory, EKG, and imaging (x-ray, CT scans) studies that were ordered show no significant abnormality. Although your examination and all studies that were ordered showed no significant abnormal finding, there are no examinations and no studies that are 100% accurate. There is always the possibility that some abnormality could exist and not be detected with physical examination or within the limits and capabilities of laboratory and other studies. You should return or follow up as you were instructed on your visit today for further evaluation if your symptoms do not resolve. FOLLOW-UP CARE: If you have been referred to a physician for follow-up care, call the physician s office for an appointment as you were instructed or within the next two days. If you experience worsening or a significant change in your symptoms, notify the physician immediately or return to the Emergency Department at any time for re-evaluation. Your blood pressure continues to be high. Please continue take her blood pressure medications as prescribed. I will also include a new prescription for amlodipine. Please take this at night. Please follow-up with the auto vinyl top installer , Dr. Duglas Fajardo. When she will follow-up with him to help better control your blood pressure as well as to monitor your kidney function. Your CT scan of her abdomen and pelvis did not show any concerning findings tonight. Please continue to avoid alcohol. Do not do any illegal drugs. Please continue stool softeners to help prevent constipation. Please return to the ER for abdominal pain worsens, if you have vomiting, he had chest pain, or if you have fevers, or if you feel unwell. Prescriptions: Amlodipine Besylate 10 mg PO QPM #30 tab Forms: Return to Work Referrals: Adnrea FAJARDO MD [ACTIVE STAFF] - Follow up in 3-5 days
--- NOTE | 2017-04-11 02:19 | RADIOLOGY REPORT (SQ) ---
EXAM DESCRIPTION: CT ABD/PELVIS ORAL ONLY COMPLETED DATE/TIME: 04/11/2017 1:27 am REASON FOR STUDY: epigastric abdominal pain COMPARISON: None. TECHNIQUE: CT scan of the abdomen and pelvis performed without intravenous or oral contrast. Images reviewed with lung, soft tissue, and bone windows. Reconstructed coronal and sagittal MPR images revi ewed. All images stored on PACS. All CT scanners at this facility use dose modulation, iterative reconstruction, and/or weight based d osing when appropriate to reduce radiation dose to as low as reasonably achievable (ALARA). [facility]: Dose Right [facility]: CareDose [facility]: Dose Right [facility]: Teradose 4D [facility]: Smart [employer] RADIATION DOSE: Up-to-date CT equipment and radiation dose reduction techniques were employed. CTDIv ol: 20.9 mGy. DLP: 1200 mGy-cm.mGy. LIMITATIONS: None. FINDINGS: LOWER CHEST: No significant findings. No nodules or infiltrates. NON-CONTRASTED LIVER, SPLEEN, ADRENALS: Evaluation limited by lack of IV contrast. No identified sign ificant masses. PANCREAS: No masses. No peripancreatic inflammatory changes. GALLBLADDER: No identified stones by CT criteria. No inflammatory changes to suggest cholecystitis. RIGHT KIDNEY AND URETER: No suspicious masses. Assessment limited by lack of IV contrast. No signif icant calcifications. No hydronephrosis or hydroureter. LEFT KIDNEY AND URETER: No suspicious masses. Assessment limited by lack of IV contrast. No signifi cant calcifications. No hydronephrosis or hydroureter. AORTA AND RETROPERITONEUM: No aneurysm. No retroperitoneal masses or adenopathy. BOWEL AND PERITONEAL CAVITY: No obvious masses or inflammatory changes. No free fluid. 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 APPENDIX: Normal. PELVIS, BLADDER, AND ABDOMINAL WALL:No abnormal masses. No free fluid. Bladder normal. BONES: Moderate sacroiliac osteoarthritis. OTHER: No other significant finding. IMPRESSION: NO SIGNIFICANT OR ACUTE PROCESS IN THE ABDOMEN OR PELVIS. COMMENT: Quality ID # [id number]: Final reports with documentation of one or more dose reduction techniques (e.g., Automated exposure control, adjustment of the mA and/or kV according to patient size, use of iterative reconstruction technique) TECHNICAL DOCUMENTATION: JOB ID: [id number]- All Rights Reserved
[2017-04-11 02:44] VITALS: BP 177/132
== END 2017-04-11 02:44 | disposition home or self-care (01) ==
LOC: ER 21:21
DX: R10.13 Epigastric pain (principal); R11.0 Nausea; R07.9 Chest pain, unspecified; I10 Essential (primary) hypertension
CPT/HCPCS: 36415; 71010; 74176; 80053; 80307; 81001; 82550; 83690; 84484; 85025; 93005; 93010; 99284

== ENCOUNTER 2017-07-04 17:54 | Emergency (ER) | payer SELFPAY ==
--- NOTE | 2017-07-04 18:36 | ER Document Report ---
ED Medical Screen (RME) - General Chief Complaint: Palpitations Stated Complaint: FAST HEARTRATE Time Seen by Provider: 07/04/17 18:25 Notes: This 37-year-old male patient comes emergency room complaining of fast heart rate and chest discomfort. He was admitted on 06/30/2017 through 07/02/2017 for hypertensive emergency caused by not taking blood pressure medication for quite some time and recent cocaine use. He was discharged on several medications, some which he cannot afford. He did get a few of the expensive pills so he has had the medication to take. He also complains of headache pressure to the back of his head which improves when he has hot water run on it in the shower. He has been seen here in the past for headaches. He also complains of stomach bloating, has been seen in the past for that complaint also. I have greeted and performed a rapid initial assessment of this patient. A comprehensive ED assessment and evaluation of the patient, analysis of test results and completion of the medical decision making process will be conducted by additional ED providers. TRAVEL OUTSIDE OF THE [place] IN LAST 30 DAYS: No - Related Data Allergies/Adverse Reactions: No Known Allergies Allergy (Verified 07/04/17 17:58) Past Medical History - Past Medical History Cardiac Medical History: Reports: Hx Hypertension Denies: Hx Coronary Artery Disease, Hx Heart Attack Endocrine Medical History: Denies: Hx Diabetes Mellitus Type 1, Hx Diabetes Mellitus Type 2 Renal/ Medical History: Denies: Hx Peritoneal Dialysis Past Surgical History: Reports: Hx Herniorrhaphy, Hx Orthopedic Surgery - Immunizations Hx Diphtheria, Pertussis, Tetanus Vaccination: Yes History of Influenza Vaccine for 04/2017 - 09/2017 Season: No Physical Exam - Vital signs Vitals: Temp Pulse Resp BP Pulse Ox 98.5 F 91 20 156/102 H 96 07/04/17 18:18 07/04/17 18:18 07/04/17 18:18 07/04/17 18:18 07/04/17 18:18 Course - Vital Signs Vital signs: Temp Pulse Resp BP Pulse Ox 98.5 F 91 20 156/102 H 96 07/04/17 18:18 07/04/17 18:18 07/04/17 18:18 07/04/17 18:18 07/04/17 18:18
[2017-07-04 19:20] LABS: ABSOLUTE BASOPHILS # (AUTO) 0.1 10^3/uL (0.0-0.2); ABSOLUTE EOSINOPHILS # (AUTO) 0.1 10^3/uL (0.0-0.6); ABSOLUTE LYMPHOCYTES (AUTO) 0.6 10^3/uL (0.5-4.7); ABSOLUTE MONOCYTES (AUTO) 0.4 10^3/uL (0.1-1.4); ABSOLUTE NEUT (AUTO) 6.2 10^3/uL (1.7-8.2); BASOPHILS % (AUTO) 0.8 % (0-2); EOSINOPHILS % (AUTO) 0.8 % (0-6); HEMATOCRIT 47.1 % (37.9-51.0); HGB HCT DIFFERENCE 0.9; MEAN CORPUSCULAR HEMOGLOBIN 30.2 pg (27.0-33.4); MEAN CORPUSCULAR HGB CONC 33.9 g/dL (32.0-36.0); MEAN CORPUSCULAR VOLUME 89 fl (80-97); MONOCYTES % (AUTO) 5.7 % (3-13); RED BLOOD COUNT 5.29 10^6/uL (4.35-5.55); RED CELL DISTRIBUTION WIDTH 15.9 % (11.5-14.0); SEGMENTED NEUTROPHILS % (AUTO) 84.7 % (42-78); WHITE BLOOD COUNT 7.4 10^3/uL (4.0-10.5)
[2017-07-04 19:24] LABS: APPEARANCE,URINE CLEAR; BILIRUBIN,URINE NEGATIVE (NEGATIVE); GLUCOSE, URINE NEGATIVE (NEGATIVE); KETONES,URINE NEGATIVE (NEGATIVE); LEUKOCYTE ESTERASE,URINE NEGATIVE (NEGATIVE); NITRITE,URINE NEGATIVE (NEGATIVE); PROTEIN,URINE 100 mg/dL (NEGATIVE); URINE SPECIFIC GRAVITY 1.032
[2017-07-04 19:31] LABS: ALANINE AMINOTRANSFERASE 83 U/L (21-72); ALBUMIN 4.3 g/dL (3.5-5.0); ALKALINE PHOSPHATASE 92 U/L (38-126); ANION GAP 14 (5-19); ASPARTATE AMINO TRANSFERASE 45 U/L (17-59); BILIRUBIN,DIRECT 0.4 mg/dL (0.0-0.4); BILIRUBIN,TOTAL 1.1 mg/dL (0.2-1.3); BLOOD UREA NITROGEN 26 mg/dL (7-20); CALCIUM 9.2 mg/dL (8.4-10.2); CARBON DIOXIDE 26 mmol/L (22-30); CHLORIDE 102 mmol/L (98-107); CREATINE KINASE 306 U/L (55-170); GLUCOSE 97 mg/dL (75-110); POTASSIUM 4.3 mmol/L (3.6-5.0); SODIUM 141.6 mmol/L (137-145); TOTAL PROTEIN 6.8 g/dL (6.3-8.2)
[2017-07-04] MEDS ORDERED: DIAZEPAM 5 MG TABLET PO ONE (20:20)
[2017-07-04] MEDS ORDERED: AMLODIPINE BESYLATE 10 MG TABLET PO ONE (20:21)
--- NOTE | 2017-07-04 20:22 | ER Document Report ---
ED General - General Chief Complaint: Palpitations Stated Complaint: FAST HEARTRATE Time Seen by Provider: 07/04/17 18:25 Notes: Patient is a 37-year-old male who was just discharged from the hospital less than 48 hours ago who presents with concerns of intermittent palpitations, sensation of anxiety, and feeling like his medications are not working. Nothing improves or worsens his symptoms. Patient was admitted for uncontrolled hypertension and moderately elevated troponin. He notes that since he was been discharged he has not been using cocaine or alcohol but does feel he may have some withdrawal symptoms from the alcohol. He denies any chest pain, shortness of breath, nausea or vomiting. He notes that nothing is new or different about her symptoms today relative to the time of discharge that prompted to come back to the hospital. He has not yet followed up with his primary care doctor as an outpatient. TRAVEL OUTSIDE OF THE [place] IN LAST 30 DAYS: No - Related Data Allergies/Adverse Reactions: No Known Allergies Allergy (Verified 07/04/17 17:58) Past Medical History - General Information source: Patient - Social History Smoking Status: Former Smoker Chew tobacco use (# tins/day): No Frequency of alcohol use: Occasional Drug Abuse: Cocaine Family History: Other - patient is adopted and does not know his family history Patient has suicidal ideation: No Patient has homicidal ideation: No - Past Medical History Cardiac Medical History: Reports: Hx Hypertension Denies: Hx Coronary Artery Disease, Hx Heart Attack Endocrine Medical History: Denies: Hx Diabetes Mellitus Type 1, Hx Diabetes Mellitus Type 2 Renal/ Medical History: Denies: Hx Peritoneal Dialysis Past Surgical History: Reports: Hx Herniorrhaphy, Hx Orthopedic Surgery - Immunizations Hx Diphtheria, Pertussis, Tetanus Vaccination: Yes Review of Systems - Review of Systems Notes: Constitutional: Negative for fever. HENT: Negative for sore throat. Eyes: Negative for visual changes. Cardiovascular: Negative for chest pain. Positive for palpitations Respiratory: Negative for shortness of breath. Gastrointestinal: Negative for abdominal pain, vomiting or diarrhea. Genitourinary: Negative for dysuria. Musculoskeletal: Negative for back pain. Skin: Negative for rash. Neurological: Negative for headaches, weakness or numbness. 10 point ROS negative except as marked above and in HPI. Physical Exam - Vital signs Vitals: Temp Pulse Resp BP Pulse Ox 98.5 F 91 20 156/102 H 96 07/04/17 18:18 07/04/17 18:18 07/04/17 18:18 07/04/17 18:18 07/04/17 18:18 Interpretation: Hypertensive Notes: PHYSICAL EXAMINATION: GENERAL: Well-appearing, well-nourished and in no acute distress. HEAD: Atraumatic, normocephalic. EYES: Pupils equal round and reactive to light, extraocular movements intact, sclera anicteric, conjunctiva are normal. ENT: nares patent, oropharynx clear without exudates. Moist mucous membranes. NECK: Normal range of motion, supple without lymphadenopathy LUNGS: Breath sounds clear to auscultation bilaterally and equal. No wheezes rales or rhonchi. HEART: Regular rate and rhythm without murmurs ABDOMEN: Soft, nontender, normoactive bowel sounds. No guarding, no rebound. No masses appreciated. EXTREMITIES: Normal range of motion, no pitting or edema. No cyanosis. NEUROLOGICAL: No focal neurological deficits. Moves all extremities spontaneously and on command. PSYCH: Normal mood, normal affect. SKIN: Warm, Dry, normal turgor, no rashes or lesions noted. Course - Re-evaluation Re-evalutation: 07/04/17 20:23 Patient presents with palpitations but is in no acute distress. Vitals within normal limits at time of arrival. EKG unremarkable with a normal sinus rhythm. Laboratories are unremarkable with the exception of a minimally elevated troponin at 0.085 which is actually lower than his troponin at time of discharge 2 days ago at 0.093. Contrary to initial RME assessment, patient denies any chest pain, shortness of breath, or vomiting. At this time based on exam and history do not suspect a new onset arrhythmia, ACS, acute pulmonary embolus, aortic dissection. Patient reports that he feels that the new medication that he is taking hydralazine, tends to worsen his feelings of palpitations and is requesting discontinuation of this medication. He also notes that is extremely expensive and is unable to afford it. Will transition him instead to amlodipine which is more affordable and has a similar mechanism of action. Patient denies any ongoing alcohol or cocaine use. He does note that he has not drank alcohol since he was hospitalized in some of his symptoms of feeling anxious and intermittently agitated may be secondary to alcohol withdrawal. Patient encouraged to follow-up with their primary care physician as well as cardiology and a referral has been provided. At this time will discharge with return precautions and follow-up recommendations. Verbal discharge instructions given a the bedside and opportunity for questions given. Medication warnings reviewed. Patient is in agreement with this plan and has verbalized understanding of return precautions and the need for primary care follow-up in the next 24-72 hours. - Vital Signs Vital signs: Temp Pulse Resp BP Pulse Ox 98.3 F 94 16 159/92 H 99 07/04/17 21:19 07/04/17 21:19 07/04/17 21:19 07/04/17 21:19 07/04/17 21:19 - Laboratory Result Diagrams: 07/04/17 18:47 07/04/17 18:47 Laboratory results interpreted by me: 07/04/17 07/04/17 07/04/17 18:47 18:47 18:47 RDW 15.9 H Seg Neutrophils % 84.7 H Lymphocytes % 8.0 L BUN 26 H Creatinine 1.70 H Est GFR ( Amer) 55 L Est GFR (Non-Af Amer) 45 L ALT 83 H Creatine Kinase 306 H Urine Protein 100 H Urine Urobilinogen 2.0 H - EKG Interpretation by Me Additional EKG results interpreted by me: 07/04/17 20:24 Sinus rhythm. Rate 89. No ST elevations or depressions. T-wave inversions in V4 through 6 similar to an EKG from 06/30 although the T-wave inversion in V4 is new. Discharge - Discharge Clinical Impression: Palpitations, Essential hypertension, Anxiety Condition: Good Disposition: HOME, SELF-CARE Additional Instructions: Please follow-up with your primary care doctor or a health services administrator regarding your palpitations. Return if you develop chest pain, shortness of breath, pass out, or have any other symptoms that are worrisome to you. Stop taking hydralazine and begin taking amlodipine for your blood pressure. You may take the hydroxyzine as needed for anxiety. Prescriptions: Hydroxyzine HCl 25 mg PO Q6HP PRN #30 tablet PRN Reason: Amlodipine Besylate 10 mg PO DAILY #30 tab
--- NOTE | 2017-07-04 20:32 | EKG REPORT ---
SEVERITY:- ABNORMAL ECG - SINUS RHYTHM VENTRICULAR PREMATURE COMPLEX ABNORMAL T, CONSIDER ISCHEMIA, ANT-LAT LEADS VS LVH BORDERLINE PROLONGED QT INTERVAL : Confirmed by: Steven Escobar 04-Jul-2017 20:31:28
[2017-07-04 21:23] VITALS: BP 159/92
== END 2017-07-04 21:19 | disposition home or self-care (01) ==
LOC: ER 17:54
DX: F41.9 Anxiety disorder, unspecified (principal); R00.2 Palpitations; R74.8 Abnormal levels of other serum enzymes; I10 Essential (primary) hypertension; Z87.891 Personal history of nicotine dependence
CPT/HCPCS: 36415; 80053; 81001; 82550; 84484; 85025; 93005; 93010; 99285

== ENCOUNTER 2017-09-09 14:58 | Emergency (ER) | payer SELFPAY ==
[2017-09-09] MEDS ORDERED: LABETALOL HCL INJ 20 MG/4 ML DISP.SYRIN IV ONE (15:14)
--- NOTE | 2017-09-09 15:17 | ER Document Report ---
ED Medical Screen (RME) - General Chief Complaint: High Blood Pressure Stated Complaint: BLOOD PRESSURE ISSUES Time Seen by Provider: 09/09/17 15:14 Mode of Arrival: Ambulatory Information source: Patient TRAVEL OUTSIDE OF THE [place] IN LAST 30 DAYS: No - HPI Patient complains to provider of: elevated BP Onset: Other - pt. ran out of BP meds several days ago. States BP has been rising ever since - Related Data Allergies/Adverse Reactions: No Known Allergies Allergy (Verified 09/09/17 14:59) Past Medical History - Past Medical History Cardiac Medical History: Reports: Hx Hypertension Denies: Hx Coronary Artery Disease, Hx Heart Attack Endocrine Medical History: Denies: Hx Diabetes Mellitus Type 1, Hx Diabetes Mellitus Type 2 Renal/ Medical History: Denies: Hx Peritoneal Dialysis Past Surgical History: Reports: Hx Herniorrhaphy, Hx Orthopedic Surgery - Immunizations Hx Diphtheria, Pertussis, Tetanus Vaccination: Yes History of Influenza Vaccine for 04/2017 - 09/2017 Season: No Physical Exam - Vital signs Vitals: Temp Pulse Resp BP Pulse Ox 98.4 F 94 20 246/157 H 97 09/09/17 15:06 09/09/17 15:06 09/09/17 15:06 09/09/17 15:06 09/09/17 15:06 Course - Vital Signs Vital signs: Temp Pulse Resp BP Pulse Ox 98.4 F 94 20 246/157 H 97 09/09/17 15:06 09/09/17 15:06 09/09/17 15:06 09/09/17 15:06 09/09/17 15:06
[2017-09-09 16:13] LABS: ABSOLUTE BASOPHILS # (AUTO) 0.1 10^3/uL (0.0-0.2); ABSOLUTE EOSINOPHILS # (AUTO) 0.1 10^3/uL (0.0-0.6); ABSOLUTE LYMPHOCYTES (AUTO) 1.3 10^3/uL (0.5-4.7); ABSOLUTE MONOCYTES (AUTO) 0.7 10^3/uL (0.1-1.4); ABSOLUTE NEUT (AUTO) 5.5 10^3/uL (1.7-8.2); BASOPHILS % (AUTO) 1.2 % (0-2); EOSINOPHILS % (AUTO) 1.5 % (0-6); HEMATOCRIT 48.1 % (37.9-51.0); LYMPHOCYTES % (AUTO) 16.7 % (13-45); MEAN CORPUSCULAR HEMOGLOBIN 29.9 pg (27.0-33.4); MEAN CORPUSCULAR HGB CONC 33.3 g/dL (32.0-36.0); MEAN CORPUSCULAR VOLUME 90 fl (80-97); MONOCYTES % (AUTO) 9.4 % (3-13); PLATELET COUNT 257 10^3/uL (150-450); RED BLOOD COUNT 5.36 10^6/uL (4.35-5.55); RED CELL DISTRIBUTION WIDTH 14.9 % (11.5-14.0); SEGMENTED NEUTROPHILS % (AUTO) 71.2 % (42-78); TOTAL CELLS COUNTED % (AUTO) 100 %; WHITE BLOOD COUNT 7.8 10^3/uL (4.0-10.5)
[2017-09-09 16:24] LABS: ALANINE AMINOTRANSFERASE 51 U/L (21-72); ALBUMIN 4.4 g/dL (3.5-5.0); ALKALINE PHOSPHATASE 81 U/L (38-126); ANION GAP 9 (5-19); ASPARTATE AMINO TRANSFERASE 37 U/L (17-59); BILIRUBIN,DIRECT 0.5 mg/dL (0.0-0.4); BILIRUBIN,TOTAL 0.7 mg/dL (0.2-1.3); BLOOD UREA NITROGEN 25 mg/dL (7-20); CALCIUM 9.8 mg/dL (8.4-10.2); CARBON DIOXIDE 32 mmol/L (22-30); CHLORIDE 101 mmol/L (98-107); GLUCOSE 102 mg/dL (75-110); POTASSIUM 3.9 mmol/L (3.6-5.0); SODIUM 142.3 mmol/L (137-145); TOTAL PROTEIN 7.6 g/dL (6.3-8.2)
[2017-09-09] MEDS ORDERED: AMLODIPINE BESYLATE 10 MG TABLET PO ONE (17:22)
[2017-09-09] MEDS ORDERED: LISINOPRIL 10 MG TABLET PO ONE (17:26)
[2017-09-09 17:28] LABS: CREATINE KINASE MB 3.47 ng/mL (<4.55)
[2017-09-09 17:36] LABS: TROPONIN I 0.056 ng/mL
[2017-09-09] MEDS ORDERED: NORMAL SALINE 1000 ML 1,000 ML IV ONE (17:40)
--- NOTE | 2017-09-09 18:22 | ER Document Report ---
ED Blood Pressure Problem - General Mode of Arrival: Ambulatory Information source: Patient TRAVEL OUTSIDE OF THE [place] IN LAST 30 DAYS: No <BARBARA TURNER - Last Filed: 09/09/17 23:49> <STEPHANIE PRICE - Last Filed: 09/09/17 23:52> - General Chief Complaint: High Blood Pressure Stated Complaint: BLOOD PRESSURE ISSUES Time Seen by Provider: 09/09/17 15:14 Notes: Patient is a 37 year old male that presents to the emergency department today with complaints of elevated blood pressures. Patient states he is out of his blood pressure medication as he was given lisinopril and amlodipine from the ER has not followed up with the family doctor yet. Patient states he has been trying to drink apple cidar vinegar to control his blood pressure recently. He states he took his blood pressure today at a pharmacy and his blood pressure was 200s/100s. Patient notes that when he thinks about his blood pressure he gets very anxious and has heart palpitations. (BARBARA TURNER) - Related Data Allergies/Adverse Reactions: No Known Allergies Allergy (Verified 09/09/17 14:59) Past Medical History - General Information source: Patient - Social History Smoking Status: Never Smoker Cigarette use (# per day): No Chew tobacco use (# tins/day): No Frequency of alcohol use: Social Drug Abuse: Marijuana Lives with: Family Family History: Reviewed & Not Pertinent, Other - patient is adopted and does not know his family history Patient has suicidal ideation: No Patient has homicidal ideation: No - Past Medical History Cardiac Medical History: Reports: Hx Hypertension Past Surgical History: Reports: Hx Herniorrhaphy, Hx Orthopedic Surgery - Immunizations Hx Diphtheria, Pertussis, Tetanus Vaccination: Yes <BARBARA TURNER - Last Filed: 09/09/17 23:49> Review of Systems - Review of Systems Constitutional: No symptoms reported EENT: No symptoms reported Cardiovascular: See HPI, Other - elevated blood pressures Respiratory: No symptoms reported Gastrointestinal: No symptoms reported Genitourinary: No symptoms reported Male Genitourinary: No symptoms reported Musculoskeletal: No symptoms reported Skin: No symptoms reported Hematologic/Lymphatic: No symptoms reported Neurological/Psychological: See HPI, Anxiety -: Yes All other systems reviewed and negative <BARBARA TURNER - Last Filed: 09/09/17 23:49> Physical Exam <BARBARA TURNER - Last Filed: 09/09/17 23:49> <STEPHANIE PRICE - Last Filed: 09/09/17 23:52> - Vital signs Vitals: Temp Pulse Resp BP Pulse Ox 98.4 F 94 20 246/157 H 97 09/09/17 15:06 09/09/17 15:06 09/09/17 15:06 09/09/17 15:06 09/09/17 15:06 - Notes Notes: PHYSICAL EXAM GENERAL: Alert, interacts well. No acute distress. HEAD: Normocephalic, atraumatic. EYES: Pupils equal, round, and reactive to light. Extraocular movements intact. ENT: Oral mucosa moist, tongue midline. NECK: Full range of motion. Supple. Trachea midline. LUNGS: Clear to auscultation bilaterally, no wheezes, rales, or rhonchi. No respiratory distress. HEART: Regular rate and rhythm. No murmurs, gallops, or rubs. ABDOMEN: Soft, non-tender. Non-distended. Bowel sounds present in all 4 quadrants. EXTREMITIES: Moves all 4 extremities spontaneously. No edema, radial and dorsalis pedis pulses 2/4 bilaterally. No cyanosis. NEUROLOGICAL: Alert and oriented x3. Normal speech. PSYCH: Normal affect, normal mood. SKIN: Warm, dry, normal turgor. No rashes or lesions noted. (BARBARA TURNER) Course - Laboratory Result Diagrams: 09/09/17 15:45 09/09/17 15:45 <BARBARA TURNER - Last Filed: 09/09/17 23:49> - Laboratory Result Diagrams: 09/09/17 15:45 09/09/17 15:45 <STEPHANIE PRICE - Last Filed: 09/09/17 23:52> - Re-evaluation Re-evalutation: 09/09/17 20:01 CBC unremarkable, CMP shows some renal failure which appears to be chronic although his GFR is normal for an -[place] male. Cardiac enzymes indeterminate 2 but downtrending 3 hours apart, 0.056 and 0.054. EKG is nonischemic. Patient was given Normodyne and then his usual home medications of amlodipine and lisinopril to control his blood pressure. Blood pressure has come down nicely, he is feeling completely better. Patient will also be given clonidine patch and his prescriptions for amlodipine and lisinopril will be refilled. I discussed thoroughly with the patient the importance of following up as an outpatient, seeing a primary care physician, having his kidney function tract and having his blood pressure appropriately managed as well as his anxiety. Patient will be discharged to home. Patient does have insurance and will set up an appointment with a primary care physician. (STEPHANIE PRICE) - Vital Signs Vital signs: Temp Pulse Resp BP Pulse Ox 98.1 F 94 25 H 172/128 H 97 09/09/17 20:35 09/09/17 15:06 09/09/17 20:16 09/09/17 20:16 09/09/17 20:16 - Laboratory Laboratory results interpreted by me: 09/09/17 09/09/17 09/09/17 15:45 15:45 15:45 RDW 14.9 H Carbon Dioxide 32 H BUN 25 H Creatinine 1.57 H Est GFR (Non-Af Amer) 49 L Direct Bilirubin 0.5 H Creatine Kinase 467 H Urine Protein 09/09/17 18:35 RDW Carbon Dioxide BUN Creatinine Est GFR (Non-Af Amer) Direct Bilirubin Creatine Kinase Urine Protein >=500 H - EKG Interpretation by Me Additional EKG results interpreted by me: 09/09/17 20:02 EKG shows sinus rhythm at a rate of 93, normal axis, borderline prolonged QT interval, no ST segment elevations or depressions, there are nonspecific T-wave inversions noted in lead III and aVF per my interpretation. (STEPHANIE PRICE) Discharge <BARBARA TURNER - Last Filed: 09/09/17 23:49> <STEPHANIE PRICE - Last Filed: 09/09/17 23:52> - Discharge Clinical Impression: CKD (chronic kidney disease) stage 3, GFR 30-59 ml/min, Anxiety, Uncontrolled hypertension Condition: Stable Disposition: HOME, SELF-CARE Additional Instructions: It is very important that you follow-up with her primary care physician to make sure your blood pressure is appropriately controlled. I have provided you with prescriptions for refills of your amlodipine and her lisinopril. Additionally we have placed a clonidine patch on you. This is a blood pressure medication that will help with her anxiety as well. You should take the patch off in 1 week. If you find this patch is working well and you are tolerating it well you may refill the clonidine as well. I have written you a prescription for both clonidine patches and clonidine pills. Please felt one or the other not both. The patches may be more expensive but they are easier to take because you only put it on once and leave it on for a week. The pills you must take 1 tablet twice a day every day. Today your kidneys once again show some damage from your chronically elevated blood pressure. It is no worse today than it has been in the past. It will likely continue to worsen if you do not see a primary care physician and have your blood pressure controlled on a daily basis. Prescriptions: Amlodipine Besylate [Norvasc 10 mg Tablet] 10 mg PO DAILY #30 tablet Clonidine [Catapres-Tts 1 (0.1 mg/24 Hr) Transderm Patch] 1 each TD ASDIR PRN # 4 patch.tdwk PRN Reason: Clonidine HCl 0.1 mg PO BID #60 tablet Lisinopril 20 mg PO DAILY #30 tablet Forms: Elevated Blood Pressure Referrals: MIRELLA MONET MD [ACTIVE STAFF] - Follow up in 1 week Scribe Attestation: 09/09/17 23:52 I personally performed the services described in the documentation, reviewed and edited the documentation which was dictated to the scribe in my presence, and it accurately records my words and actions. (STEPHANIE PRICE) Scribe Documentation - Scribe Written by Bruce:: Bruce Yost, 09/09/2017 1838 acting as scribe for :: Rigoberto <BARBARA TURNER - Last Filed: 09/09/17 23:49>
[2017-09-09] MEDS ORDERED: CLONIDINE 0.1 MG/24 HR PATCH.TDWK TD ONE (20:00)
[2017-09-09 20:28] VITALS: BP 172/128
[2017-09-09 20:38] LABS: APPEARANCE,URINE CLEAR; BILIRUBIN,URINE NEGATIVE (NEGATIVE); COLOR,URINE YELLOW; GLUCOSE, URINE NEGATIVE (NEGATIVE); KETONES,URINE NEGATIVE (NEGATIVE); LEUKOCYTE ESTERASE,URINE NEGATIVE (NEGATIVE); NITRITE,URINE NEGATIVE (NEGATIVE); PROTEIN,URINE >=500 mg/dL (NEGATIVE); URINE SPECIFIC GRAVITY 1.017; UROBILINOGEN,URINE NEGATIVE mg/dL (<2.0)
--- NOTE | 2017-09-09 20:48 | EKG REPORT ---
SEVERITY:- ABNORMAL ECG - SINUS RHYTHM PROBABLE LEFT ATRIAL ABNORMALITY NONSPECIFIC T ABNORMALITIES, INFERIOR LEADS BORDERLINE PROLONGED QT INTERVAL : Confirmed by: Steven Escobar 09-Sep-2017 20:46:41
== END 2017-09-09 20:44 | disposition home or self-care (01) ==
LOC: ER 14:58
DX: I12.9 Hypertensive chronic kidney disease with stage 1 through stage 4 chronic kidney disease, or unspecified chronic kidney disease (principal); N18.3 Chronic kidney disease, stage 3 (moderate); T46.4X6A Underdosing of angiotensin-converting-enzyme inhibitors, initial encounter; T46.1X6A Underdosing of calcium-channel blockers, initial encounter; Z91.128 Patient's intentional underdosing of medication regimen for other reason; Z91.14 Patient's other noncompliance with medication regimen; F41.9 Anxiety disorder, unspecified; F12.10 Cannabis abuse, uncomplicated
CPT/HCPCS: 93005; 99283; 96361; 96374; 36415; 82553; 82550; 85025; 80053; 81001; 84484; 93010; J3490 ×2; J7030

== ENCOUNTER 2017-10-21 10:42 | Emergency (ER) | payer SELFPAY ==
[2017-10-21] MEDS ORDERED: ALPRAZOLAM 0.5 MG TABLET PO ONE (11:12)
[2017-10-21] MEDS ORDERED: LABETALOL HCL INJ 20 MG/4 ML DISP.SYRIN IV ONE ×3 (11:12→12:00)
--- NOTE | 2017-10-21 11:42 | ER Document Report ---
ED General - General Chief Complaint: High Blood Pressure Stated Complaint: BLOOD PRESSURE ISSUE Time Seen by Provider: 10/21/17 11:12 Mode of Arrival: Ambulatory Information source: Patient Notes: This is a 37-year-old man with a history of chronic kidney disease, hypertension , anxiety who presents to the emergency room with concerns for elevated blood pressure. The patient states he did run out of his lisinopril and Norvasc. He denies any chest pain, shortness of breath. He denies any abdominal pain. He does state he has been under a lot of stress lately. He states that he does get anxious often. He adamantly denies any cocaine abuse/use. TRAVEL OUTSIDE OF THE [place] IN LAST 30 DAYS: No - HPI Onset: This morning Onset/Duration: Gradual Quality of pain: No pain Severity: None Pain Level: Denies Associated symptoms: denies: Chest pain, Fever, Nausea, Vomiting, Shortness of breath Exacerbated by: Denies Relieved by: Denies Similar symptoms previously: Yes Recently seen / treated by doctor: Yes - Related Data Allergies/Adverse Reactions: No Known Allergies Allergy (Verified 09/09/17 14:59) Past Medical History - General Information source: Patient - Social History Smoking Status: Never Smoker Cigarette use (# per day): No Chew tobacco use (# tins/day): No Frequency of alcohol use: None Drug Abuse: Other - Adamantly denies cocaine use Lives with: Spouse/Significant other Family History: Reviewed & Not Pertinent, Other - patient is adopted and does not know his family history Patient has suicidal ideation: No Patient has homicidal ideation: No - Past Medical History Cardiac Medical History: Reports: Hx Hypertension Denies: Hx Coronary Artery Disease, Hx Heart Attack Endocrine Medical History: Denies: Hx Diabetes Mellitus Type 1, Hx Diabetes Mellitus Type 2 Renal/ Medical History: Denies: Hx Peritoneal Dialysis GI Medical History: Reports: None Musculoskeltal Medical History: Reports None Skin Medical History: Reports None Psychiatric Medical History: Reports: None Traumatic Medical History: Reports: None Infectious Medical History: Reports: None Past Surgical History: Reports: Hx Herniorrhaphy, Hx Orthopedic Surgery - Immunizations Hx Diphtheria, Pertussis, Tetanus Vaccination: Yes Review of Systems - Review of Systems Constitutional: denies: Chills, Fever EENT: No symptoms reported Cardiovascular: See HPI. denies: Chest pain, Palpitations, Heart racing, Dyspnea, Syncope Respiratory: No symptoms reported Gastrointestinal: No symptoms reported Genitourinary: No symptoms reported Male Genitourinary: No symptoms reported Musculoskeletal: No symptoms reported Skin: No symptoms reported Hematologic/Lymphatic: No symptoms reported Neurological/Psychological: See HPI, Anxiety Physical Exam - Vital signs Vitals: Temp Pulse Resp BP Pulse Ox 98.3 F 91 16 214/133 H 96 10/21/17 10:50 10/21/17 10:50 10/21/17 10:50 10/21/17 10:50 10/21/17 10:50 Notes: Physical exam: GENERAL: 87-year-old man, alert and oriented 3, no acute distress HEAD: Atraumatic, normocephalic. EYES: Pupils equal round and reactive to light, extraocular movements intact, sclera anicteric, conjunctiva are normal. ENT: TMs normal, nares patent, oropharynx clear without exudates. Moist mucous membranes. NECK: Normal range of motion, supple without obvious mass or JVD. LUNGS: Breath sounds clear to auscultation bilaterally and equal. No wheezes rales or rhonchi. HEART: Regular rate and rhythm without murmurs, rubs or gallops. ABDOMEN: Soft, normoactive bowel sounds. No tenderness to palpation. No guarding, no rebound. No masses appreciated. EXTREMITIES: Normal range of motion, no pitting or edema. No clubbing or cyanosis. NEUROLOGICAL: Cranial nerves II through XII grossly intact. Normal speech, moving all extremities. PSYCH: Normal mood, normal affect. SKIN: Warm, Dry, normal turgor, no rashes or lesions noted. Course - Re-evaluation Re-evalutation: 10/21/17 12:17 Patient remains asymptomatic. On reassessment, his lungs are clear and his heart is regular and his abdomen is soft. He is conversant. Since he ran out of 2 of his medicines and will be running out soon as of the third, I will renew his prescriptions. [facility], he does state that he has recently instituted insurance (so I will give him not only the [facility], but referral to 3 other primary care doctors). 10/21/17 13:17 Note: I have had a extensive conversation with this patient regarding the need for follow-up with a physician. I am hesitant to change his current blood pressure regimen because it should be done so with a regular primary care doctor. Therefore, I am renewing his scripts until he can get in to be evaluated by primary care doctor. - Vital Signs Vital signs: Temp Pulse Resp BP Pulse Ox 98.3 F 92 17 155/103 H 95 10/21/17 10:50 10/21/17 10:52 10/21/17 13:01 10/21/17 13:01 10/21/17 13:01 - Laboratory Result Diagrams: 10/21/17 11:18 10/21/17 11:18 Laboratory results interpreted by me: 10/21/17 10/21/17 11:18 11:18 RDW 14.9 H Creatinine 1.51 H Est GFR (Non-Af Amer) 52 L Glucose 113 H Discharge - Discharge Clinical Impression: Hypertension Condition: Stable Disposition: HOME, SELF-CARE Instructions: High Blood Pressure ([facility]) Additional Instructions: Thank you for choosing [facility] for your care. The examination and treatment you have received in the Emergency Department today has been rendered on an emergency basis only and is not intended to be a substitute for complete medical care. You should contact your doctor as it is important that she/he examine you for any new or remaining problems. If given a copy of any lab tests or radiology reports, please bring them with you when you see your physician. If your problem worsens or new symptoms appear and you are unable to arrange prompt follow-up care, return to the Emergency Department. Specific signs to look out for: Return to the emergency room for any chest pain, chest shortness of breath, abdominal pain or any concerns or getting worse Any other instructions: Take the medicines as prescribed and follow-up with the primary care doctor. I have listed the number of 3 primary care doctors below. There is also a number for free clinic. Dr. Anant De La Torre [address], [place] [address] [phone] Dr Chadwick Address: [address] , [place] [address] Dr Askew Address: [address] , [place] [address] If you don't have insurance: follow-up at the [facility] which is a free clinic. [address], [place] [address] Prescriptions: Amlodipine Besylate [Norvasc 10 mg Tablet] 10 mg PO DAILY #30 tablet Clonidine HCl 0.1 mg PO BID #60 tablet Lisinopril 20 mg PO DAILY #30 tablet Forms: Return to Work
[2017-10-21 11:48] LABS: ABSOLUTE EOSINOPHILS # (AUTO) 0.1 10^3/uL (0.0-0.6); ABSOLUTE LYMPHOCYTES (AUTO) 1.1 10^3/uL (0.5-4.7); ABSOLUTE MONOCYTES (AUTO) 0.6 10^3/uL (0.1-1.4); ABSOLUTE NEUT (AUTO) 5.5 10^3/uL (1.7-8.2); BASOPHILS % (AUTO) 0.6 % (0-2); EOSINOPHILS % (AUTO) 0.7 % (0-6); HEMATOCRIT 45.1 % (37.9-51.0); HEMOGLOBIN 15.2 g/dL (13.5-17.0); LYMPHOCYTES % (AUTO) 14.5 % (13-45); MEAN CORPUSCULAR HEMOGLOBIN 29.6 pg (27.0-33.4); MEAN CORPUSCULAR HGB CONC 33.6 g/dL (32.0-36.0); MEAN CORPUSCULAR VOLUME 88 fl (80-97); MONOCYTES % (AUTO) 8.8 % (3-13); PLATELET COUNT 235 10^3/uL (150-450); RED BLOOD COUNT 5.13 10^6/uL (4.35-5.55); RED CELL DISTRIBUTION WIDTH 14.9 % (11.5-14.0); SEGMENTED NEUTROPHILS % (AUTO) 75.4 % (42-78); TOTAL CELLS COUNTED % (AUTO) 100 %; WHITE BLOOD COUNT 7.3 10^3/uL (4.0-10.5)
[2017-10-21 12:01] LABS: ALANINE AMINOTRANSFERASE 53 U/L (21-72); ALBUMIN 4.2 g/dL (3.5-5.0); ALKALINE PHOSPHATASE 82 U/L (38-126); ANION GAP 10 (5-19); ASPARTATE AMINO TRANSFERASE 31 U/L (17-59); BILIRUBIN,DIRECT 0.4 mg/dL (0.0-0.4); BILIRUBIN,TOTAL 0.9 mg/dL (0.2-1.3); BLOOD UREA NITROGEN 20 mg/dL (7-20); CALCIUM 9.4 mg/dL (8.4-10.2); CARBON DIOXIDE 28 mmol/L (22-30); CHLORIDE 105 mmol/L (98-107); GLUCOSE 113 mg/dL (75-110); POTASSIUM 4.1 mmol/L (3.6-5.0); SODIUM 142.9 mmol/L (137-145); TOTAL PROTEIN 6.7 g/dL (6.3-8.2)
[2017-10-21 13:11] VITALS: BP 155/103
== END 2017-10-21 13:25 | disposition home or self-care (01) ==
LOC: ER 10:42
DX: I10 Essential (primary) hypertension (principal); T46.1X6A Underdosing of calcium-channel blockers, initial encounter; T46.4X6A Underdosing of angiotensin-converting-enzyme inhibitors, initial encounter; Z91.128 Patient's intentional underdosing of medication regimen for other reason; Z91.14 Patient's other noncompliance with medication regimen; F41.9 Anxiety disorder, unspecified
CPT/HCPCS: 99283; 96374; 36415; 85025; 80053; J3490

== ENCOUNTER 2018-01-31 00:12 | Inpatient (IN) | payer SELFPAY ==
[2018-01-31] MEDS ORDERED: LORAZEPAM 1 MG TABLET PO ONE (00:35)
[2018-01-31] MEDS ORDERED: AMLODIPINE BESYLATE 10 MG TABLET PO ONE (00:35)
[2018-01-31] MEDS ORDERED: LISINOPRIL 10 MG TABLET PO ONE (00:35)
--- NOTE | 2018-01-31 00:38 | ER Document Report ---
ED General - General Chief Complaint: High Blood Pressure Stated Complaint: BLOOD PRESSURE ISSUE Time Seen by Provider: 01/31/18 00:28 Notes: Patient is a 37-year-old male who presents with complaint of high blood pressure. He has a history of chronic high blood pressure especially on amlodipine, clonidine, lisinopril. Says he has been out of his amlodipine and lisinopril for a month now. He does not have a family doctor. He said he recently lost his job and is about to start working [employer] soon and should regain his insurance after starting there. He denies any chest pain. No shortness of breath. No focal weakness or numbness. He said he had a very slight headache earlier today but that has since resolved. Patient also mentions that his blood pressure goes up higher when he stress. He says he has been very stressed today because he just had a recent in his family. He has no other complaints at this time. TRAVEL OUTSIDE OF THE [place] IN LAST 30 DAYS: No - Related Data Allergies/Adverse Reactions: No Known Allergies Allergy (Verified 09/09/17 14:59) Past Medical History - Social History Smoking Status: Current Some Day Smoker Frequency of alcohol use: None Drug Abuse: None Family History: Reviewed & Not Pertinent, Other - patient is adopted and does not know his family history - Past Medical History Cardiac Medical History: Reports: Hx Hypertension Denies: Hx Coronary Artery Disease, Hx Heart Attack Endocrine Medical History: Denies: Hx Diabetes Mellitus Type 1, Hx Diabetes Mellitus Type 2 Renal/ Medical History: Denies: Hx Peritoneal Dialysis Past Surgical History: Reports: Hx Herniorrhaphy, Hx Orthopedic Surgery - Immunizations Hx Diphtheria, Pertussis, Tetanus Vaccination: Yes Review of Systems - Review of Systems Notes: My Normal Review Basic REVIEW OF SYSTEMS: CONSTITUTIONAL : Denies fever, chills, or sweats. Denies recent illness. RESPIRATORY: Denies cough, cold, or chest congestion. Denies shortness of breath, difficulty breathing, or wheezing. GASTROINTESTINAL: Denies abdominal pain. Denies nausea, vomiting, or diarrhea. Denies constipation. Last BM: MUSCULOSKELETAL: Denies neck or back pain or joint pain or swelling. SKIN: Denies rash or skin lesions. NEUROLOGICAL: Denies altered mental status or loss of consciousness. Mild intermittent headache. Denies weakness or paralysis or loss of use of either side. Denies problems with gait or speech. Denies sensory or motor loss. ALL OTHER SYSTEMS REVIEWED AND NEGATIVE. Physical Exam - Vital signs Vitals: Temp Pulse Resp BP Pulse Ox 97.8 F 90 20 238/135 H 99 01/31/18 00:20 01/31/18 00:20 01/31/18 00:20 01/31/18 00:20 01/31/18 00:20 - Notes Notes: General Appearance: Well nourished, alert, cooperative, no acute distress, no obvious discomfort. Well-appearing. Vitals: reviewed, See vital signs table. Head: no swelling or tenderness to the head Eyes: PERRL, EOMI, Conjuctiva clear Mouth: No decreasd moisture Throat: No tonsillar inflammation, No airway obstruction, No lymphadenopathy Neck: Supple, no neck tenderness, No thyromegaly Lungs: No wheezing, No rales, No rhonci, No accessory muscle use, good air exchange bilaterally. Heart: Normal rate, Regular rythm, No murmur, no rub Abdomen: Normal BS, soft, No rigidity, No abdominal tenderness, No guarding, no rebound, no abdominal masses, no organomegaly Extremities: strength 5/5 in all extremities, good pulses in all extremities, no swelling or tenderness in the extremities, no edema. Skin: warm, dry, appropriate color, no rash Neuro: speech clear, oriented x 3, normal affect, responds appropriately to questions. Renal nerves II through XII intact. Distal sensation intact. Patient was all extremities without difficulty. Normal Romberg testing. Normal gait. Course - Re-evaluation Re-evalutation: 01/31/18 03:44 Despite patient's blood pressure improving his EKG and repeat EKG continues show T-wave inversions in comparison to his old EKG. I did talk to patient length and does prefer to stay in hospital which is what I recommended due to his EKG changes. He does have renal insufficiency which is unchanged comparison to his previous labs. Also troponin is 0.05 which again is unchanged comparison to his previous labs. I did speak with the hospitalist, Dr. Stephen, who agrees to admit the patient. Dictation of this chart was performed using voice recognition software; therefore, there may be some unintended grammatical errors. - Vital Signs Vital signs: Temp Pulse Resp BP Pulse Ox 97.8 F 90 19 174/101 H 95 01/31/18 00:20 01/31/18 00:20 01/31/18 02:01 01/31/18 02:01 01/31/18 02:01 - Laboratory Result Diagrams: 01/31/18 00:40 01/31/18 00:40 Laboratory results interpreted by me: 01/31/18 01/31/18 00:40 00:40 RDW 14.4 H Sodium 145.5 H BUN 24 H Creatinine 1.59 H Est GFR ( Amer) 59 L Est GFR (Non-Af Amer) 49 L Total Protein 6.2 L - EKG Interpretation by Me Additional EKG results interpreted by me: 01/31/18 01:40 EKG is reviewed and interpreted by me. EKG shows sinus rhythm with rate of [address] segment elevation. Very mild ST segment depression with T-wave inversion in the lateral leads. These are more pronounced in comparison to his old EKG from September 09, 2017. 01/31/18 03:22 EKG #2 is reviewed and interpreted by me. EKG shows sinus rhythm with rate [address] segment elevation. Patient has the same T-wave inversions in the lateral leads. These have not resolved. Discharge - Discharge Clinical Impression: Hypertensive urgency, Acute electrocardiogram changes, Renal insufficiency Condition: Stable Disposition: ADMITTED OBSERVATION Admitting Provider: Hospitalist Unit Admitted: Telemetry
[2018-01-31 00:51] LABS: ABSOLUTE BASOPHILS # (AUTO) 0.1 10^3/uL (0.0-0.2); ABSOLUTE EOSINOPHILS # (AUTO) 0.1 10^3/uL (0.0-0.6); ABSOLUTE LYMPHOCYTES (AUTO) 1.1 10^3/uL (0.5-4.7); ABSOLUTE MONOCYTES (AUTO) 0.8 10^3/uL (0.1-1.4); ABSOLUTE NEUT (AUTO) 6.2 10^3/uL (1.7-8.2); EOSINOPHILS % (AUTO) 1.5 % (0-6); HEMATOCRIT 41.7 % (37.9-51.0); HEMOGLOBIN 14.3 g/dL (13.5-17.0); LYMPHOCYTES % (AUTO) 13.7 % (13-45); MEAN CORPUSCULAR HEMOGLOBIN 30.4 pg (27.0-33.4); MEAN CORPUSCULAR HGB CONC 34.2 g/dL (32.0-36.0); MEAN CORPUSCULAR VOLUME 89 fl (80-97); MONOCYTES % (AUTO) 9.1 % (3-13); PLATELET COUNT 236 10^3/uL (150-450); RED BLOOD COUNT 4.69 10^6/uL (4.35-5.55); RED CELL DISTRIBUTION WIDTH 14.4 % (11.5-14.0); SEGMENTED NEUTROPHILS % (AUTO) 74.7 % (42-78); TOTAL CELLS COUNTED % (AUTO) 100 %; WHITE BLOOD COUNT 8.3 10^3/uL (4.0-10.5)
[2018-01-31 01:01] LABS: ALANINE AMINOTRANSFERASE 38 U/L (21-72); ALBUMIN 3.7 g/dL (3.5-5.0); ALKALINE PHOSPHATASE 81 U/L (38-126); ANION GAP 14 (5-19); ASPARTATE AMINO TRANSFERASE 30 U/L (17-59); BILIRUBIN,DIRECT 0.4 mg/dL (0.0-0.4); BILIRUBIN,TOTAL 0.5 mg/dL (0.2-1.3); BLOOD UREA NITROGEN 24 mg/dL (7-20); CALCIUM 9.2 mg/dL (8.4-10.2); CARBON DIOXIDE 26 mmol/L (22-30); CHLORIDE 106 mmol/L (98-107); GLUCOSE 108 mg/dL (75-110); POTASSIUM 3.7 mmol/L (3.6-5.0); SODIUM 145.5 mmol/L (137-145); TOTAL PROTEIN 6.2 g/dL (6.3-8.2)
[2018-01-31] MEDS ORDERED: HYDRALAZINE HCL INJ/PF 20 MG/1 ML SDV IV PRN (03:54)
[2018-01-31] MEDS ORDERED: IPRATROPIUM/ALBUTEROL 0.5-2.5 MG/3 ML AMPUL NEB PRN (03:55)
[2018-01-31] MEDS ORDERED: MAG HYDROX/AL HYDROX/SIMETH SUSP 30 ML UDCUP PO PRN (03:55)
[2018-01-31] MEDS: DIAZEPAM 2 MG TABLET PO SCH ×3 (05:26→21:37)
[2018-01-31] MEDS ORDERED: HEPARIN SOD (PORCINE) 5,000 UNIT/ML 1 ML SYRINGE SUBCUT SCH (06:00)
[2018-01-31 06:11] LABS: URINE AMPHETAMINES SCREEN NEGATIVE; URINE BARBITURATES SCREEN NEGATIVE; URINE BENZODIAZEPINES SCREEN NEGATIVE; URINE COCAINE SCREEN NEGATIVE; URINE METHADONE SCREEN NEGATIVE; URINE PHENCYCLIDINE SCREEN NEGATIVE
[2018-01-31 06:16] LABS: URINE MARIJUANA (THC) SCREEN UNCONFIRMED POSITIVE
--- NOTE | 2018-01-31 06:24 | PDOC H&P ---
History of Present Illness Admission Date/PCP: 01/31/18 03:48 Patient complains of: Uncontrolled hypertension History of Present Illness: RACHEL PHELPS is a 37 year old male with a past medical history of hypertension , obesity, obstructive sleep apnea, chronic kidney disease, tobacco dependence, alcohol and cocaine use. He presents with headache and a blood pressure of 238/ 135. He denies chest pain, shortness of breath or palpitations. He admits running out of his medications for several days and exceptional social stressors. He receives benzodiazepine, Norvasc and lisinopril. He has an unremarkable workup with exception to inverted T waves and is referred to the hospitalist for observation. Past Medical History Cardiac Medical History: Reports: Hypertension Denies: Coronary Artery Disease, Myocardial Infarction Pulmonary Medical History: Reports: Sleep Apnea Endocrine Medical History: Reports: Obesity Denies: Diabetes Mellitus Type 1, Diabetes Mellitus Type 2 Renal/ Medical History: Reports: Chronic Kidney Disease Psychiatric Medical History: Reports: Substance Abuse, Tobacco Dependency Past Surgical History Past Surgical History: Reports: Herniorrhaphy, Orthopedic Surgery Social History Information Source: Patient Lives with: Friend Smoking Status: Current Every Day Smoker Cigarettes Packs Per Day: 0.5 Number of Years Smokin Last Time Smoked: 01/31/2018 Frequency of Alcohol Use: Occasional Hx Recreational Drug Use: Yes Drugs: Cocaine, Marijuana Hx Prescription Drug Abuse: No - Advance Directive Resuscitation Status: Full Code Family History Family History: Other - patient is adopted and does not know his family history Parental Family History Reviewed: Yes Children Family History Reviewed: Yes Sibling(s) Family History Reviewed.: Yes Medication/Allergy Home Medications: Isosorbide Mononitrate [Imdur 30 mg Tablet.er] 60 mg PO DAILY #60 tab.er.24h 11/13 Lisinopril [Prinivil 10 mg Tablet] 20 mg PO DAILY #60 tablet 07/02/17 Nifedipine [Procardia XL 30 mg Tablet] 60 mg PO Q12 #120 tab.er.24 07/02/17 Amlodipine Besylate 10 mg PO DAILY #30 tab 07/04/17 Hydroxyzine HCl 25 mg PO Q6HP PRN #30 tablet 07/04/17 Amlodipine Besylate [Norvasc 10 mg Tablet] 10 mg PO DAILY #30 tablet 09/09/17 Clonidine HCl 0.1 mg PO BID #60 tablet 09/09/17 Clonidine [Catapres-Tts 1 (0.1 mg/24 Hr) Transderm Patch] 1 each TD ASDIR PRN # 4 patch.tdwk 09/09/17 Lisinopril 20 mg PO DAILY #30 tablet 09/09/17 Amlodipine Besylate [Norvasc 10 mg Tablet] 10 mg PO DAILY #30 tablet 10/21/17 Clonidine HCl 0.1 mg PO BID #60 tablet 10/21/17 Lisinopril 20 mg PO DAILY #30 tablet 10/21/17 Allergies/Adverse Reactions: No Known Allergies Allergy (Verified 09/09/17 14:59) Review of Systems Constitutional: ABSENT: chills, fever(s), headache(s), weight gain, weight loss Eyes: ABSENT: visual disturbances Ears: ABSENT: hearing changes Cardiovascular: ABSENT: chest pain, dyspnea on exertion, edema, orthropnea, palpitations Respiratory: ABSENT: cough, hemoptysis Gastrointestinal: ABSENT: abdominal pain, constipation, diarrhea, hematemesis, hematochezia, nausea, vomiting Genitourinary: ABSENT: dysuria, hematuria Musculoskeletal: ABSENT: joint swelling Integumentary: ABSENT: rash, wounds Neurological: ABSENT: abnormal gait, abnormal speech, confusion, dizziness, focal weakness, syncope Psychiatric: ABSENT: anxiety, depression, homidical ideation, suicidal ideation Endocrine: ABSENT: cold intolerance, heat intolerance, polydipsia, polyuria Hematologic/Lymphatic: ABSENT: easy bleeding, easy bruising Physical Exam Vital Signs: Temp Pulse Resp BP Pulse Ox 97.3 F 60 20 169/109 H 97 01/31/18 05:01 01/31/18 05:01 01/31/18 05:01 01/31/18 05:01 01/31/18 05:01 Intake & Output 01/29/18 01/30/18 01/31/18 11:59 11:59 11:59 Intake Total 0 Balance 0 General appearance: PRESENT: cooperative, mild distress, well-developed, well- nourished. ABSENT: disheveled, hard of hearing Head exam: PRESENT: atraumatic, normocephalic Eye exam: PRESENT: conjunctiva pink, EOMI, PERRLA. ABSENT: scleral icterus Ear exam: PRESENT: normal external ear exam Mouth exam: PRESENT: moist, tongue midline Neck exam: ABSENT: carotid bruit, JVD, lymphadenopathy, thyromegaly Respiratory exam: PRESENT: clear to auscultation ban. ABSENT: rales, rhonchi, wheezes Cardiovascular exam: PRESENT: RRR. ABSENT: diastolic murmur, rubs, systolic murmur Pulses: PRESENT: normal dorsalis pedis pul Vascular exam: PRESENT: normal capillary refill GI/Abdominal exam: PRESENT: normal bowel sounds, soft. ABSENT: distended, guarding, mass, organolmegaly, rebound, tenderness Rectal exam: PRESENT: deferred Extremities exam: PRESENT: full ROM, +1 edema. ABSENT: calf tenderness, clubbing, pedal edema Neurological exam: PRESENT: alert, awake, oriented to person, oriented to place , oriented to time, oriented to situation, CN II-XII grossly intact. ABSENT: motor sensory deficit Psychiatric exam: PRESENT: appropriate affect, normal mood. ABSENT: homicidal ideation, suicidal ideation Skin exam: PRESENT: dry, intact, warm. ABSENT: cyanosis, rash Results Laboratory Results: 01/31/18 04:00 Troponin I 0.054 Assessment & Plan - Diagnosis (1) Hypertensive urgency Is this a current diagnosis for this admission?: Yes Plan: Resume home regiment, Valium given history of cocaine abuse. (2) Renal insufficiency Is this a current diagnosis for this admission?: Yes Plan: Likely secondary to chronic uncontrolled hypertension, avoid nephrotoxic meds and doses follow-up chemistry (3) Cocaine abuse Is this a current diagnosis for this admission?: Yes Plan: Avoid beta-emily, scheduled low-dose Valium (4) Acute electrocardiogram changes Is this a current diagnosis for this admission?: Yes Plan: Likely secondary to hypertensive urgency, serial cardiac enzymes. - Time Time Spent: 50 to 70 Minutes
--- NOTE | 2018-01-31 07:34 | EKG REPORT ---
SEVERITY:- ABNORMAL ECG - SINUS RHYTHM ABNORMAL T, CONSIDER ISCHEMIA, LATERAL LEADS PROLONGED QT INTERVAL : Confirmed by: Brett Montelongo MD 31-Jan-2018 07:34:10
--- NOTE | 2018-01-31 07:34 | EKG REPORT ---
SEVERITY:- ABNORMAL ECG - SINUS RHYTHM ABNORMAL T, CONSIDER ISCHEMIA, LATERAL LEADS : Confirmed by: Brett Montelongo MD 31-Jan-2018 07:33:51
[2018-01-31] MEDS: ACETAMINOPHEN 325 MG TABLET PO PRN ×2 (09:16→23:53)
[2018-01-31] MEDS: AMLODIPINE BESYLATE 10 MG TABLET PO SCH (09:16)
[2018-01-31] MEDS ORDERED: CLONIDINE HCL 0.1 MG TABLET PO SCH (10:00)
[2018-01-31] MEDS ORDERED: (PENDING PHARMACY ID) (Hydroxyzine Hcl [Atarax 25 Mg Tablet] 25 MG) PO PRN (14:47)
--- NOTE | 2018-01-31 14:58 | PDOC PROGRESS REPORT ---
Subjective Progress Note for:: 01/31/18 Subjective:: 37-year-old male with history of hypertension sleep apnea chronic kidney disease , nicotine use, history of cocaine and alcohol use who presented to the hospital with blood pressure of 238/135. He was having some headache no chest pain shortness of breath or visual symptoms. EKG showed inverted T waves in the lateral leads. He was started on antihypertensives and admitted to the hospital. At this time he denies any chest pain headache visual blurring or shortness of breath. He ran out of his medications for the past 3 weeks. He currently does not have a primary care physician to prescribe his medications. The patient also reports verbal arguments with his fiance leading to agitation and anxiety. He takes hydroxyzine as an outpatient for anxiety. Blood pressures have been running high. Clonidine has been increased to 0.1 mg 3 times a day. Continue amlodipine. Hydralazine has been added to his regimen. Recheck renal function. Reason For Visit: HTN URGENCY Physical Exam Vital Signs: Temp Pulse Resp BP Pulse Ox 97.9 F 67 18 180/110 H 97 01/31/18 11:27 01/31/18 11:27 01/31/18 11:27 01/31/18 11:27 01/31/18 11:27 Intake & Output 01/30/18 01/31/18 02/01/18 06:59 06:59 06:59 Intake Total 0 400 Output Total 400 900 Balance -400 -500 Weight 121.6 kg General appearance: PRESENT: no acute distress Head exam: PRESENT: normocephalic Mouth exam: PRESENT: moist Respiratory exam: PRESENT: symmetrical, unlabored Cardiovascular exam: PRESENT: RRR GI/Abdominal exam: PRESENT: normal bowel sounds, soft. ABSENT: tenderness Rectal exam: PRESENT: deferred Gentrourinary exam: ABSENT: indwelling catheter Neurological exam: PRESENT: alert, awake, oriented to person, oriented to place , oriented to time, oriented to situation Psychiatric exam: PRESENT: appropriate affect Results Laboratory Results: 01/31/18 01/31/18 04:00 10:01 Troponin I 0.054 0.035 Assessment & Plan - Diagnosis (1) Hypertensive urgency Is this a current diagnosis for this admission?: Yes Plan: Continue to monitor and treat. (2) Renal insufficiency Is this a current diagnosis for this admission?: Yes (3) Tobacco abuse Is this a current diagnosis for this admission?: Yes - Time Time Spent with patient: 35 or more minutes
[2018-01-31] MEDS ORDERED: HYDRALAZINE HCL 25 MG TABLET PO ONE (15:45)
[2018-01-31] MEDS ORDERED: CLONIDINE HCL 0.1 MG TABLET PO ONE (15:45)
[2018-01-31] MEDS: HYDRALAZINE HCL INJ/PF 20 MG/1 ML SDV IV PRN ×2 (15:56→23:56)
[2018-01-31 16:01] LABS: ANION GAP 11 (5-19); BLOOD UREA NITROGEN 19 mg/dL (7-20); CALCIUM 9.4 mg/dL (8.4-10.2); CARBON DIOXIDE 25 mmol/L (22-30); CHLORIDE 107 mmol/L (98-107); GLUCOSE 104 mg/dL (75-110); PHOSPHORUS 3.7 mg/dL (2.5-4.5); POTASSIUM 3.7 mmol/L (3.6-5.0); SODIUM 143.4 mmol/L (137-145)
[2018-01-31] MEDS ORDERED: HYDROXYZINE PAMOATE 25 MG CAPSULE PO PRN (16:15)
[2018-01-31] MEDS: CLONIDINE HCL 0.1 MG TABLET PO SCH (21:37)
[2018-01-31] MEDS: HYDRALAZINE HCL 25 MG TABLET PO SCH (21:38)
[2018-02-01] MEDS: DIAZEPAM 2 MG TABLET PO SCH ×3 (05:25→21:50)
[2018-02-01] MEDS: CLONIDINE HCL 0.1 MG TABLET PO SCH ×3 (05:25→21:51)
[2018-02-01] MEDS: HYDRALAZINE HCL 25 MG TABLET PO SCH (05:26)
[2018-02-01] MEDS: HYDRALAZINE HCL INJ/PF 20 MG/1 ML SDV IV PRN ×2 (05:28→23:21)
[2018-02-01] MEDS: ACETAMINOPHEN 325 MG TABLET PO PRN ×2 (06:41→16:47)
[2018-02-01] MEDS: AMLODIPINE BESYLATE 10 MG TABLET PO SCH (09:34)
[2018-02-01] MEDS ORDERED: LISINOPRIL 10 MG TABLET PO ONE ×2 (12:30→13:00)
[2018-02-01] MEDS: HYDRALAZINE HCL 50 MG TABLET PO SCH ×2 (13:57→21:50)
--- NOTE | 2018-02-01 16:52 | PDOC PROGRESS REPORT ---
Subjective Progress Note for:: 02/01/18 - Patient seen on rounds this morning Subjective:: Patient denies any acute complaints. Discussed with patient about medication compliance and adherence. He tells me that he was on blood pressure medication but has not taken it for a few weeks because he ran out of it. He denies any recent drug use within the last 2-3 months. Reason For Visit: HYPERTENSIVE URGENCY Physical Exam Vital Signs: Temp Pulse Resp BP Pulse Ox 97.5 F 85 17 161/91 H 97 02/01/18 15:41 02/01/18 15:41 02/01/18 15:41 02/01/18 15:41 02/01/18 15:41 Intake & Output 01/31/18 02/01/18 02/02/18 06:59 06:59 06:59 Intake Total 1467 218 Output Total 1000 Balance 467 218 Weight 261 lb 11.019 oz General appearance: PRESENT: obese. ABSENT: no acute distress Head exam: PRESENT: atraumatic, normocephalic Eye exam: PRESENT: EOMI. ABSENT: conjunctival injection, scleral icterus Mouth exam: PRESENT: moist, neck supple Neck exam: PRESENT: full ROM. ABSENT: JVD, tenderness Respiratory exam: PRESENT: clear to auscultation ban, symmetrical Cardiovascular exam: PRESENT: RRR, +S1, +S2 Pulses: PRESENT: +2 pedal pulses bilateral GI/Abdominal exam: PRESENT: normal bowel sounds, soft. ABSENT: tenderness Extremities exam: ABSENT: joint swelling, pedal edema, +2 edema Musculoskeletal exam: PRESENT: full ROM. ABSENT: tenderness Neurological exam: PRESENT: alert, altered, awake, oriented to person, oriented to place, oriented to time, oriented to situation, CN II-XII grossly intact Skin exam: PRESENT: dry, warm Results Laboratory Results: 01/31/18 15:25 01/31/18 16:05 CK-MB (CK-2) 3.28 Assessment & Plan - Diagnosis (2) Renal insufficiency Is this a current diagnosis for this admission?: Yes (3) Tobacco abuse Is this a current diagnosis for this admission?: Yes (4) Cocaine abuse Is this a current diagnosis for this admission?: Yes - Time Time Spent with patient: 25-34 minutes - Plan Summary Plan Summary: Patient was admitted for hypertensive emergency patient noncompliance and nonadherence. His blood pressure has still been greater than 160/90. He is currently on Norvasc, clonidine and hydralazine. At this time I will increase hydralazine 25--> 50 mg every 8 hours. I will also add lisinopril 10 mg daily. Plan to discharge in the morning if his blood pressure is much improved. I discussed and had a long conversation about him regarding medication compliance and hypertension. He also told me that he has renal insufficiency but is's creatinine is within normal limits and patient is on aware of his baseline creatinine. He was also started on Valium for history of cocaine use but I think we should taper him down.
[2018-02-02] MEDS: HYDRALAZINE HCL INJ/PF 20 MG/1 ML SDV IV PRN (02:56)
[2018-02-02] MEDS: ACETAMINOPHEN 325 MG TABLET PO PRN (04:52)
[2018-02-02] MEDS: CLONIDINE HCL 0.1 MG TABLET PO SCH ×2 (04:53→14:08)
[2018-02-02] MEDS: HYDRALAZINE HCL 50 MG TABLET PO SCH ×2 (04:54→14:08)
[2018-02-02] MEDS ORDERED: LISINOPRIL 10 MG TABLET PO SCH ×2 (10:00)
[2018-02-02] MEDS: DIAZEPAM 2 MG TABLET PO SCH (10:05)
[2018-02-02] MEDS: AMLODIPINE BESYLATE 10 MG TABLET PO SCH (10:14)
[2018-02-02 12:52] LABS: ANION GAP 11 (5-19); BLOOD UREA NITROGEN 18 mg/dL (7-20); CARBON DIOXIDE 24 mmol/L (22-30); CHLORIDE 110 mmol/L (98-107); GLUCOSE 98 mg/dL (75-110); POTASSIUM 4.7 mmol/L (3.6-5.0); SODIUM 144.6 mmol/L (137-145)
[2018-02-02 15:48] VITALS: BP 147/99
--- NOTE | 2018-02-02 16:19 | PDOC DISCHARGE SUMMARY ---
General - Admit/Disc Date/PCP Admission Date/Primary Care Provider: 01/31/18 14:53 Discharge Date: 02/02/18 - Discharge Diagnosis (2) Renal insufficiency Is this a current diagnosis for this admission?: Yes (3) Tobacco abuse Is this a current diagnosis for this admission?: Yes (4) Cocaine abuse Is this a current diagnosis for this admission?: Yes - Additional Information Resuscitation Status: Full Code Discharge Diet: As Tolerated Discharge Activity: Activity As Tolerated Prescriptions: Amlodipine Besylate [Norvasc 10 mg Tablet] 10 mg PO DAILY #30 tablet Clonidine HCl [Catapres 0.1 mg Tablet] 0.1 mg PO Q8 #90 tablet Hydralazine HCl [Apresoline 50 mg Tablet] 50 mg PO Q8 #90 tablet Hydroxyzine HCl [Atarax 25 mg Tablet] 25 mg PO Q12 #30 tablet Lisinopril [Prinivil 10 mg Tablet] 20 mg PO DAILY #30 tablet Home Medications: Amlodipine Besylate [Norvasc 10 mg Tablet] 10 mg PO DAILY 01/31/18 Lisinopril 20 mg PO DAILY 01/31/18 Amlodipine Besylate [Norvasc 10 mg Tablet] 10 mg PO DAILY #30 tablet 02/02/18 Clonidine HCl [Catapres 0.1 mg Tablet] 0.1 mg PO Q8 #90 tablet 02/02/18 Hydralazine HCl [Apresoline 50 mg Tablet] 50 mg PO Q8 #90 tablet 02/02/18 Hydroxyzine HCl [Atarax 25 mg Tablet] 25 mg PO Q12 #30 tablet 02/02/18 Lisinopril [Prinivil 10 mg Tablet] 20 mg PO DAILY #30 tablet 02/02/18 History of Present Illness History of Present Illness: RACHEL PHELPS is a 38 year old male with PMH of HTN who was admitted for Hypertensive emergency. Please see H&P for full assessment and plan Hospital Course Hospital Course: After admission to the hospital he was started on his home medications which she had not been taking for a few weeks now. States he ran out of his medication and never refilled it. He was initially started back on his Norvasc , clonidine and his lisinopril was held due to [place] I. He was given IV fluids and his creatinine improved and fluids later DC'd. Due to continued elevated blood pressure he was started on hydralazine and titrated up to 50 mg every 8 hours. His clonidine was increased to 0.1 mg 3 times daily. Currently he is on hydralazine 50 mg 3 times daily, clonidine 0.1 mg 3 times daily, lisinopril 20 mg daily and amlodipine 10 mg daily. I had a long conversation about all his hypertensive medications. I advised him that he needs to follow-up with his PCP and hopefully a glassware maker regarding his resistant hypertension. I discussed about doing tests such as renal ultrasound to rule out renal stenosis , cortisol levels, and other hormone levels to rule out the reason for his resistant hypertension. He understands that he to follow-up with her family doctor. We discussed about signs and symptoms of hypertensive emergency. He tells me that he has been going through a lot of stressors in his life. States he has been very stressed out and anxious about his social life with his girlfriend and her family. States that he was kicked out of his house by his girlfriend and hence he could not get his medication for the last 2-3 weeks. His blood pressure still remains mildly elevated and I think there is a component of anxiety/stress which is driving it. He is also a smoker and I have discussed about stopping smoking. He also drinks alcohol and we have discussed about cessation. We have discussed about weight loss and a healthier diet. At this point will discharge patient on the medication mentioned above and he will follow-up with his PCP within 1 week. Otherwise he remained stable and was tolerating diet and was back to his baseline health. Physical Exam Vital Signs: Temp Pulse Resp BP Pulse Ox 97.2 F 71 21 H 147/99 H 99 02/02/18 15:47 02/02/18 15:47 02/02/18 15:47 02/02/18 15:47 02/02/18 15:47 Intake & Output 02/01/18 02/02/18 02/03/18 06:59 06:59 06:59 Intake Total 1467 728 330 Output Total 1000 Balance 467 728 330 Weight 261 lb 11.019 oz 259 lb 7.745 oz General appearance: PRESENT: no acute distress, obese Head exam: PRESENT: atraumatic, normocephalic Eye exam: PRESENT: conjunctival injection, EOMI. ABSENT: scleral icterus Ear exam: PRESENT: normal external ear exam Mouth exam: PRESENT: moist, neck supple Neck exam: PRESENT: full ROM. ABSENT: JVD - So she, tenderness Respiratory exam: PRESENT: clear to auscultation ban, symmetrical Cardiovascular exam: PRESENT: RRR, +S1, +S2 Pulses: PRESENT: +2 pedal pulses bilateral GI/Abdominal exam: PRESENT: normal bowel sounds, soft. ABSENT: tenderness Extremities exam: ABSENT: joint swelling, pedal edema Musculoskeletal exam: PRESENT: ambulatory, full ROM. ABSENT: tenderness Neurological exam: PRESENT: alert, awake, oriented to person, oriented to place , oriented to time, CN II-XII grossly intact Skin exam: PRESENT: dry, warm Results Laboratory Results: 02/02/18 12:05 02/02/18 12:05 Sodium 144.6 Potassium 4.7 Chloride 110 H Carbon Dioxide 24 Anion Gap 11 BUN 18 Creatinine 1.36 H Est GFR ( Amer) > 60 Est GFR (Non-Af Amer) 58 L Glucose 98 Calcium 10.0 01/31/18 16:05 CK-MB (CK-2) 3.28 Qualifiers - * PATIENT BEING DISCHARGED WITH ANY OF THE FOLLOWING DIAGNOSIS: No Plan Time Spent: Less than 30 Minutes
[2018-02-02] MEDS ORDERED: CLONIDINE HCL 0.1 MG TABLET PO ONE (18:00)
[2018-02-02] MEDS ORDERED: HYDRALAZINE HCL 50 MG TABLET PO ONE (18:00)
[2018-02-03] MEDS ORDERED: LISINOPRIL 10 MG TABLET PO SCH (10:00)
== END 2018-02-02 17:20 | disposition home or self-care (01) | DRG 305 ==
LOC: ER 00:12 → EH 03:48 → 3W 04:52 → OBSVTOIN 14:53 → 4N 02-01 22:22
PROVIDERS: ADMIT Internal Medicine; ATTEND Internal Medicine
DX: I16.1 Hypertensive emergency (principal); G47.30 Sleep apnea, unspecified; I12.9 Hypertensive chronic kidney disease with stage 1 through stage 4 chronic kidney disease, or unspecified chronic kidney disease; N18.9 Chronic kidney disease, unspecified; T46.5X6A Underdosing of other antihypertensive drugs, initial encounter; F41.9 Anxiety disorder, unspecified; N28.9 Disorder of kidney and ureter, unspecified; F14.10 Cocaine abuse, uncomplicated; F17.210 Nicotine dependence, cigarettes, uncomplicated; E66.01 Morbid (severe) obesity due to excess calories; Z68.38 Body mass index [BMI] 38.0-38.9, adult; Z79.899 Other long term (current) drug therapy; Z63.0 Problems in relationship with spouse or partner; Z72.89 Other problems related to lifestyle
CPT/HCPCS: 36415; 80048; 80053; 80307; 82553; 83735; 84100; 84484; 85025; 93005; 93010; 99284; G0378; J0360; J1644; J3490

== ENCOUNTER 2019-01-03 14:11 | Inpatient (IN) | payer SELFPAY ==
[2019-01-03] MEDS ORDERED: HYDRALAZINE HCL INJ/PF 20 MG/1 ML SDV IV ONE ×2 (14:26→15:17)
--- NOTE | 2019-01-03 14:36 | ER Document Report ---
ED General - General Stated Complaint: BEHAVIORAL ISSUES Time Seen by Provider: 01/03/19 14:18 Notes: Patient brought in by EMS from high blood pressures. Call to EMS used for an overdose of cocaine and alcohol. Patient reportedly also has been taking Benadryl "by the handful"., Apparently in an effort to sedate himself. EMS reports the initial blood pressure was 230/140. He had one diastolic reading that was 157. In route to the hospital, patient was given 0.2 mg of clonidine p.o. and 2-1/2 mg of Versed IV. Upon arrival in the emergency department, patient is somnolent, but awakens with voice and tactile stimulation. When awakened, patient says he is having pain in his chest. History of stage III kidney disease. Hypertension. Says he was told a year ago they had a heart attack. History of bipolar disorder. TRAVEL OUTSIDE OF THE [place] IN LAST 30 DAYS: No - Related Data Allergies/Adverse Reactions: No Known Allergies Allergy (Verified 09/09/17 14:59) Past Medical History - Social History Smoking Status: Current Every Day Smoker Cigarette use (# per day): Yes Drug Abuse: Cocaine Family History: Reviewed & Not Pertinent, Other - patient is adopted and does not know his family history - Past Medical History Cardiac Medical History: Reports: Hx Heart Attack - Patient says he had a heart attack about a year ago., Hx Hypertension Pulmonary Medical History: Reports: Hx Sleep Apnea Past Surgical History: Reports: Hx Herniorrhaphy, Hx Orthopedic Surgery - Immunizations Hx Diphtheria, Pertussis, Tetanus Vaccination: Yes Review of Systems - Review of Systems -: Yes ROS unobtainable due to patient's medical condition - Patient too sleepy and difficult to awaken to get complete ROS. Physical Exam - Vital signs Vitals: Resp Pulse Ox 19 92 01/03/19 14:21 01/03/19 14:21 PHYSICAL EXAMINATION: GENERAL: Sleeping, awakens easily. Does not appear to be in distress. Sinus tachycardia at 110. HEAD: Atraumatic, normocephalic. EYES: Pupils equal round and reactive to light, extraocular movements intact. ENT: oropharynx clear without exudates. Moist mucous membranes. NECK: Normal range of motion, supple. LUNGS: Breath sounds clear and equal bilaterally. HEART: Regular rate and rhythm without murmurs. ABDOMEN: Soft, nontender. No guarding or rebound. No masses. BACK: No tenderness throughout entire back. EXTREMITIES: Normal range of motion without pain. Negative Homans. NEUROLOGICAL: Normal speech, normal gait. Normal sensory, motor, and reflex exams. Awake, alert, and oriented x3. Cranial nerves normal. PSYCH: Normal mood, normal affect. SKIN: Warm, dry, no rashes. Course - Re-evaluation Re-evalutation: 01/03/19 16:26 Patient had received 0.2 mg of clonidine p.o. in route to the hospital. Was also given Versed 2.5 mg IV. Upon arrival, his blood pressure still with diastolics around 130. I ordered 5 mg of hydralazine IV and after about 20 minutes without much change in his blood pressure I ordered 10 mg more of hydralazine IV. At this time, patient's last blood pressure was 159/101. Spoke with hospitalist who will admit the patient to [facility]. - Vital Signs Vital signs: Temp Pulse Resp BP Pulse Ox 23 H 217/131 H 97 01/03/19 15:17 01/03/19 15:17 01/03/19 15:17 - Laboratory Result Diagrams: 01/03/19 14:26 01/03/19 14:26 Laboratory results interpreted by ky: 01/03/19 01/03/19 14:26 14:26 RDW 15.4 H Potassium 3.2 L Creatinine 2.02 H Est GFR ( Amer) 44 L Est GFR (Non-Af Amer) 37 L Glucose 146 H Total Protein 5.8 L Salicylates < 1.0 L Acetaminophen < 10 L - Diagnostic Test Radiology reviewed: Image reviewed, Reports reviewed - CT scan of the brain is normal. Radiology results interpreted by ky: 01/03/19 16:30 Chest x-ray is normal. - EKG Interpretation by Ri EKG shows normal: Sinus rhythm Rate: Normal Rhythm: NSR Voltage: Consistant with LVH Discharge - Discharge Clinical Impression: Cocaine abuse, Renal insufficiency, Tachycardia, Hypertensive urgency Condition: Stable Disposition: ADMITTED INPATIENT Admitting Provider: Grace (Hospitalist) Unit Admitted: [facility]
[2019-01-03 14:45] LABS: ABSOLUTE BASOPHILS # (AUTO) 0.1 10^3/uL (0.0-0.2); ABSOLUTE EOSINOPHILS # (AUTO) 0.2 10^3/uL (0.0-0.6); ABSOLUTE LYMPHOCYTES (AUTO) 1.2 10^3/uL (0.5-4.7); ABSOLUTE MONOCYTES (AUTO) 0.8 10^3/uL (0.1-1.4); ABSOLUTE NEUT (AUTO) 6.3 10^3/uL (1.7-8.2); BASOPHILS % (AUTO) 0.7 % (0-2); EOSINOPHILS % (AUTO) 1.9 % (0-6); LYMPHOCYTES % (AUTO) 13.5 % (13-45); MEAN CORPUSCULAR HGB CONC 33.3 g/dL (32.0-36.0); MEAN CORPUSCULAR VOLUME 90 fl (80-97); MONOCYTES % (AUTO) 9.5 % (3-13); PLATELET COUNT 196 10^3/uL (150-450); RED CELL DISTRIBUTION WIDTH 15.4 % (11.5-14.0); SEGMENTED NEUTROPHILS % (AUTO) 74.4 % (42-78); TOTAL CELLS COUNTED % (AUTO) 100 %; WHITE BLOOD COUNT 8.5 10^3/uL (4.0-10.5)
[2019-01-03 15:07] LABS: ACETAMINOPHEN < 10 ug/mL (10-30); ALANINE AMINOTRANSFERASE 39 U/L (21-72); ALBUMIN 3.5 g/dL (3.5-5.0); ALCOHOL < 10 mg/dL (NONE DETECTED); ALKALINE PHOSPHATASE 96 U/L (38-126); ANION GAP 10 (5-19); ASPARTATE AMINO TRANSFERASE 29 U/L (17-59); BILIRUBIN,DIRECT 0.3 mg/dL (0.0-0.4); BILIRUBIN,TOTAL 0.4 mg/dL (0.2-1.3); BLOOD UREA NITROGEN 20 mg/dL (7-20); CARBON DIOXIDE 30 mmol/L (22-30); CHLORIDE 101 mmol/L (98-107); GLUCOSE 146 mg/dL (75-110); POTASSIUM 3.2 mmol/L (3.6-5.0); SALICYLATE < 1.0 mg/dL (2.0-20.0); SODIUM 140.5 mmol/L (137-145); TOTAL PROTEIN 5.8 g/dL (6.3-8.2)
--- NOTE | 2019-01-03 15:45 | RADIOLOGY REPORT (SQ) ---
EXAM DESCRIPTION: CHEST SINGLE VIEW COMPLETED DATE/TIME: 01/03/2019 3:36 pm REASON FOR STUDY: Chest pain, cocaine abuse, hypertension COMPARISON: 06/30/2017 NUMBER OF VIEWS: One view. TECHNIQUE: Single frontal radiographic view of the chest acquired. LIMITATIONS: LOW LUNG VOLUMES. FINDINGS: LUNGS AND PLEURA: No opacities, masses or pneumothorax. No pleural effusion. MEDIASTINUM AND HILAR STRUCTURES: No masses. Contour normal. HEART AND VASCULAR STRUCTURES: Heart normal in size. Normal vasculature. BONES: No acute findings. HARDWARE: None in the chest. OTHER: No other significant finding. IMPRESSION: Negative chest allowing for low lung volumes. TECHNICAL DOCUMENTATION: JOB ID: [id number] [employer]- All Rights Reserved Reading location - IP/workstation name: [email or web address]
--- NOTE | 2019-01-03 16:01 | RADIOLOGY REPORT (SQ) ---
EXAM DESCRIPTION: CT HEAD WITHOUT COMPLETED DATE/TIME: 01/03/2019 3:52 pm REASON FOR STUDY: Severe hypertension, sleepy. COMPARISON: 02/27/2017. TECHNIQUE: Axial images acquired through the brain without intravenous contrast. Images reviewed wi th bone, brain and subdural windows. Additional sagittal and coronal reconstructions were generated. Images stored on PACS. All CT scanners at this facility use dose modulation, iterative reconstruction, and/or weight based d osing when appropriate to reduce radiation dose to as low as reasonably achievable (ALARA). [facility]: Dose Right [facility]: CareDose [facility]: Dose Right [facility]: Teradose 4D [facility]: [facility] RADIATION DOSE: CT Rad equipment meets quality standard of care and radiation dose reduction techniq ues were employed. CTDIvol: 53.2 mGy. DLP: 2519 mGy-cm. mGy. LIMITATIONS: Motion artifact. FINDINGS: VENTRICLES: Normal size and contour. CEREBRUM: No masses. No hemorrhage. No midline shift. No evidence for acute infarction. Normal gra y/white matter differentiation. No areas of low density in the white matter. CEREBELLUM: No masses. No hemorrhage. No alteration of density. No evidence for acute infarction. EXTRAAXIAL SPACES: No fluid collections. No masses. ORBITS AND GLOBE: No intra- or extraconal masses. Normal contour of globe without masses. CALVARIUM: No fracture. PARANASAL SINUSES: No fluid or mucosal thickening. SOFT TISSUES: No mass or hematoma. OTHER: No other significant finding. IMPRESSION: NORMAL BRAIN CT WITHOUT CONTRAST. EVIDENCE OF ACUTE STROKE: NO. COMMENT: Quality ID # [id number]: Final reports with documentation of one or more dose reduction techniques (e.g., Automated exposure control, adjustment of the mA and/or kV according to patient size, use of iterative reconstruction technique) TECHNICAL DOCUMENTATION: JOB ID: [id number] [employer]- All Rights Reserved Reading location - IP/workstation name: [email or web address]
[2019-01-03] MEDS ORDERED: NORMAL SALINE 1000 ML 1,000 ML IV PRN (16:55)
[2019-01-03] MEDS ORDERED: DEXTROSE 40% GEL 15 GM TUBE PO PRN ×2 (16:56)
[2019-01-03] MEDS ORDERED: GLUCAGON,HUMAN RECOMB 1 MG INJ SUBCUT PRN (16:56)
[2019-01-03] MEDS ORDERED: DEXTROSE 50%-WATER 25 GM/50 ML DISP.SYRIN IV PRN ×2 (16:56)
[2019-01-03 17:09] LABS: APPEARANCE,URINE CLEAR; BILIRUBIN,URINE NEGATIVE (NEGATIVE); COLOR,URINE YELLOW; GLUCOSE, URINE 50 mg/dL (NEGATIVE); KETONES,URINE NEGATIVE (NEGATIVE); LEUKOCYTE ESTERASE,URINE NEGATIVE (NEGATIVE); NITRITE,URINE NEGATIVE (NEGATIVE); PROTEIN,URINE >=500 mg/dL (NEGATIVE); URINE SPECIFIC GRAVITY 1.017; UROBILINOGEN,URINE NEGATIVE mg/dL (<2.0)
--- NOTE | 2019-01-03 17:12 | PDOC H&P ---
History of Present Illness Admission Date/PCP: 01/03/19 16:40 Patient complains of: Agitation History of Present Illness: RACHEL PHELPS is a 38 year old male with a past medical history of hypertension, obesity, HERMAN, CKD, smoking, alcohol use and history of cocaine use who was brought in by EMS due to agitation at home. Patient reportedly has been using cocaine in the past 3 days and has has not been asleep since then. His called EMS to to increasing concern. Patient reportedly has been popping a handful of Benadryl pills at home reportedly to try to "mellow down the effects of cocaine". He was seen by EMS and his blood pressure was elevated at 230/130. He was given clonidine by EMS. En route patient became agitated and was given 2.5 mg IV Versed by EMS. In the ER, he appeared slightly lethargic but arousable. He received a total of 15 mg of IV hydralazine and his blood pressure did improve to the 160/100s. Upon encounter, patient appears lethargic but is arousable. He is able to tell me his name, he knows he is in the hospital and is able to tell me that it is December. He denies chest pain or shortness of breath. When asked how many pills of Benadryl he took, he responds "only a few". He does admit to having used cocaine recently. Past Medical History Cardiac Medical History: Reports: Myocardial Infarction - Patient says he had a heart attack about a year ago., Hypertension Pulmonary Medical History: Reports: Sleep Apnea Past Surgical History Past Surgical History: Reports: Herniorrhaphy, Orthopedic Surgery Social History Smoking Status: Current Every Day Smoker Frequency of Alcohol Use: Occasional Hx Recreational Drug Use: Yes Drugs: Cocaine, Marijuana Hx Prescription Drug Abuse: No Family History Family History: Reviewed & Not Pertinent, Other - patient is adopted and does not know his family history Parental Family History Reviewed: Yes - No premature CAD Children Family History Reviewed: No Sibling(s) Family History Reviewed.: No Medication/Allergy Home Medications: Unobtainable 01/03/19 Allergies/Adverse Reactions: No Known Allergies Allergy (Verified 09/09/17 14:59) Review of Systems All systems: reviewed and no additional remarkable complaints except as stated - Limited due to mentation, as mentioned in HPI Physical Exam Vital Signs: Temp Pulse Resp BP Pulse Ox 15 162/118 H 95 01/03/19 16:46 01/03/19 16:46 01/03/19 16:46 Intake & Output 01/02/19 01/03/19 01/04/19 06:59 06:59 06:59 Weight 246 lb 7.629 oz General appearance: PRESENT: other - Lethargic but arousable Head exam: PRESENT: atraumatic, normocephalic Eye exam: PRESENT: conjunctiva pink, EOMI, PERRLA. ABSENT: scleral icterus Ear exam: PRESENT: normal external ear exam Mouth exam: PRESENT: moist, tongue midline Neck exam: ABSENT: carotid bruit, JVD, lymphadenopathy, thyromegaly Respiratory exam: PRESENT: clear to auscultation ban. ABSENT: rales, rhonchi, wheezes Cardiovascular exam: PRESENT: RRR. ABSENT: diastolic murmur, rubs, systolic murmur Pulses: PRESENT: normal dorsalis pedis pul GI/Abdominal exam: PRESENT: normal bowel sounds, soft. ABSENT: distended, guarding, mass, organolmegaly, rebound, tenderness Rectal exam: PRESENT: deferred Neurological exam: PRESENT: oriented to person, oriented to place, oriented to time, CN II-XII grossly intact, other - Lethargic but arousable. ABSENT: motor sensory deficit Results Laboratory Results: 01/03/19 14:26 01/03/19 14:26 01/03/19 01/03/19 14:26 14:26 WBC 8.5 RBC 5.00 Hgb 15.0 Hct 45.0 MCV 90 MCH 30.0 MCHC 33.3 RDW 15.4 H Plt Count 196 Seg Neutrophils % 74.4 Lymphocytes % 13.5 Monocytes % 9.5 Eosinophils % 1.9 Basophils % 0.7 Absolute Neutrophils 6.3 Absolute Lymphocytes 1.2 Absolute Monocytes 0.8 Absolute Eosinophils 0.2 Absolute Basophils 0.1 Sodium 140.5 Potassium 3.2 L Chloride 101 Carbon Dioxide 30 Anion Gap 10 BUN 20 Creatinine 2.02 H Est GFR ( Amer) 44 L Est GFR (Non-Af Amer) 37 L Glucose 146 H Calcium 9.0 Total Bilirubin 0.4 AST 29 ALT 39 Alkaline Phosphatase 96 Total Protein 5.8 L Albumin 3.5 Impressions: Chest X-Ray 01/03/19 15:09 IMPRESSION: Negative chest allowing for low lung volumes. Head CT 01/03/19 15:10 IMPRESSION: NORMAL BRAIN CT WITHOUT CONTRAST. EVIDENCE OF ACUTE STROKE: NO. Assessment and Plan - Diagnosis (1) Hypertensive urgency Is this a current diagnosis for this admission?: Yes Plan: Repeat blood pressure encounter has improved to 158/100. Patient denies chest pain or shortness of breath. CT that was negative. Chest x-ray is also unremarkable. EKG shows T wave inversions on the anterolateral leads. Compared to previous EKG in 2018, these changes are chronic. We will continue IV hydralazine for now. Resume other home medications once he is more alert. (2) Acute encephalopathy Is this a current diagnosis for this admission?: Yes Plan: Multifactorial from cocaine use and Benadryl intake and recent Versed administration contributing to current lethargy. As mentioned patient is lethargic but is arousable and is oriented to person, place and time. He is currently protecting his airway. He is saturating well on room air at 99%. (3) Acute kidney injury Is this a current diagnosis for this admission?: Yes Plan: He has a known CKD. Creatinine is elevated at previous baseline. We will give him IV fluids. Repeat BMP tomorrow. Check CK. (4) Cocaine abuse Is this a current diagnosis for this admission?: Yes Plan: As mentioned above. (5) Alcohol use Is this a current diagnosis for this admission?: Yes Plan: Monitor for signs of withdrawal. Will hold off on Ativan for now due to lethargy after being given Versed. - Time Time Spent with patient: 25-34 minutes
[2019-01-03 17:22] LABS: URINE AMPHETAMINES SCREEN NEGATIVE; URINE BARBITURATES SCREEN NEGATIVE; URINE BENZODIAZEPINES SCREEN UNCONFIRMED POSITIVE; URINE COCAINE SCREEN UNCONFIRMED POSITIVE; URINE MARIJUANA (THC) SCREEN UNCONFIRMED POSITIVE; URINE METHADONE SCREEN NEGATIVE; URINE PHENCYCLIDINE SCREEN NEGATIVE
[2019-01-03] MEDS: POTASSI CL 20 MEQ/50 ML RIDER 20 MEQ/50 ML RTUPB IV SCH ×2 (17:56→20:37)
--- NOTE | 2019-01-03 22:15 | EKG REPORT ---
SEVERITY:- ABNORMAL ECG - SINUS RHYTHM NONSPECIFIC T ABNORMALITIES, ANT-LAT LEADS BORDERLINE PROLONGED QT INTERVAL : Confirmed by: Brett Montelongo MD 03-Jan-2019 22:13:57
[2019-01-03 22:48] LABS: ARTERIAL BLOOD BASE EXCESS 1.4 mmol/L; ARTERIAL BLOOD FIO2 RA; ARTERIAL BLOOD H2CO3 1.01 mmol/L (1.05-1.35); ARTERIAL BLOOD HCO3 24.3 mmol/L (20-24); ARTERIAL BLOOD O2 SATURATION 95.9 % (94-98); ARTERIAL BLOOD PCO2 33.5 mmHg (35-45); ARTERIAL BLOOD PH 7.48 (7.35-7.45); ARTERIAL BLOOD PO2 74.4 mmHg (80-100); ARTERIAL BLOOD TOTAL CO2 25.3 mmol/L (23-27)
[2019-01-03] MEDS: NORMAL SALINE 1000 ML 1,000 ML IV PRN (23:24)
[2019-01-03] MEDS: HEPARIN SOD (PORCINE) 5,000 UNIT/ML 1 ML SYRINGE SUBCUT SCH (23:28)
[2019-01-04] MEDS: HYDRALAZINE HCL INJ/PF 20 MG/1 ML SDV IV PRN ×5 (00:34→23:25)
[2019-01-04] MEDS: NORMAL SALINE 1000 ML 1,000 ML IV PRN (03:00)
[2019-01-04 05:24] LABS: ANION GAP 6 (5-19); BLOOD UREA NITROGEN 17 mg/dL (7-20); CALCIUM 8.9 mg/dL (8.4-10.2); CARBON DIOXIDE 29 mmol/L (22-30); CHLORIDE 107 mmol/L (98-107); GLUCOSE 112 mg/dL (75-110); POTASSIUM 3.5 mmol/L (3.6-5.0); SODIUM 141.8 mmol/L (137-145)
[2019-01-04] MEDS ORDERED: ACETAMINOPHEN 325 MG TABLET ONE (05:46)
[2019-01-04] MEDS: ACETAMINOPHEN 325 MG TABLET PO PRN (05:48)
--- NOTE | 2019-01-04 06:21 | RADIOLOGY REPORT (SQ) ---
CLINICAL HISTORY: severe headache, hypertensive urgency COMPARISON: January 03, 2019. TECHNIQUE: CT HEAD WITHOUT IV CONTRAST on 01/04/2019 5:24 AM CDT This exam was performed according to our departmental dose-optimization program, which includes automated exposure control, adjustment of the mA and/or kV according to patient size and/or use of iterative reconstruction technique. FINDINGS: There is no acute hemorrhage, mass effect or midline shift. Rahman-white differentiation is preserved. There is no hydrocephalus. There is no significant volume loss for age. The calvarium is intact. Orbits and globes are unremarkable. The paranasal sinuses are clear. There is fluid in the bilateral mastoid air cells. IMPRESSION: No acute intracranial findings.
[2019-01-04] MEDS: HEPARIN SOD (PORCINE) 5,000 UNIT/ML 1 ML SYRINGE SUBCUT SCH ×2 (09:11→21:20)
[2019-01-04] MEDS ORDERED: LABETALOL HCL 200 MG TABLET PO ONE (11:00)
--- NOTE | 2019-01-04 12:27 | PDOC PROGRESS REPORT ---
Subjective Progress Note for:: 01/04/19 Subjective:: This is 38 years old black male patient with past medical history of hypertension, CKD, obstructive sleep apnea, tobacco dependence and alcohol dependence brought by EMS for agitation and altered mental status. Reportedly patient has been smoking cocaine for several days in a row. When he presented to ER his blood pressure was 230/130 he was given hydralazine and clonidine. His urine drug screen is positive for benzodiazepine, cocaine and marijuana. This morning when I see the patient he is awake alert oriented he is not in pain or distress and his blood pressure is 1 6416. I started him on labetalol 100 mg twice a day. Reason For Visit: ACUTE ENCEPHALOPATHY,HYPERTENSIVE URGENCY,COCAINE Physical Exam Vital Signs: Temp Pulse Resp BP Pulse Ox 98.4 F 92 12 164/116 H 95 01/04/19 07:47 01/04/19 07:47 01/04/19 07:47 01/04/19 07:47 01/04/19 07:47 Intake & Output 01/03/19 01/04/19 01/05/19 06:59 06:59 06:59 Intake Total 1000 Output Total 0 Balance 1000 Weight 112 kg General appearance: PRESENT: cooperative, obese Head exam: PRESENT: atraumatic Eye exam: PRESENT: conjunctiva pink Neck exam: ABSENT: carotid bruit, JVD, lymphadenopathy, thyromegaly Respiratory exam: PRESENT: clear to auscultation ban. ABSENT: rales, rhonchi, wheezes Cardiovascular exam: PRESENT: RRR. ABSENT: diastolic murmur, rubs, systolic murmur GI/Abdominal exam: PRESENT: normal bowel sounds, soft. ABSENT: distended, guarding, mass, organolmegaly, rebound, tenderness Neurological exam: PRESENT: alert, awake, oriented to person, oriented to place, oriented to time, oriented to situation Results Laboratory Results: 01/03/19 14:26 01/04/19 04:12 01/03/19 01/03/19 01/03/19 14:26 14:26 16:50 WBC 8.5 RBC 5.00 Hgb 15.0 Hct 45.0 MCV 90 MCH 30.0 MCHC 33.3 RDW 15.4 H Plt Count 196 Seg Neutrophils % 74.4 Lymphocytes % 13.5 Monocytes % 9.5 Eosinophils % 1.9 Basophils % 0.7 Absolute Neutrophils 6.3 Absolute Lymphocytes 1.2 Absolute Monocytes 0.8 Absolute Eosinophils 0.2 Absolute Basophils 0.1 Carbonic Acid HCO3/H2CO3 Ratio ABG pH ABG pCO2 ABG pO2 ABG HCO3 ABG O2 Saturation ABG Base Excess FiO2 Sodium 140.5 Potassium 3.2 L Chloride 101 Carbon Dioxide 30 Anion Gap 10 BUN 20 Creatinine 2.02 H Est GFR ( Amer) 44 L Est GFR (Non-Af Amer) 37 L Glucose 146 H Calcium 9.0 Total Bilirubin 0.4 AST 29 ALT 39 Alkaline Phosphatase 96 Total Protein 5.8 L Albumin 3.5 Urine Color YELLOW Urine Appearance CLEAR Urine pH 6.0 Ur Specific Wing 1.017 Urine Protein >=500 H Urine Glucose (UA) 50 H Urine Ketones NEGATIVE Urine Blood SMALL H Urine Nitrite NEGATIVE Ur Leukocyte Esterase NEGATIVE Urine WBC (Auto) 1 Urine RBC (Auto) 2 01/03/19 01/04/19 18:15 04:12 WBC RBC Hgb Hct MCV MCH MCHC RDW Plt Count Seg Neutrophils % Lymphocytes % Monocytes % Eosinophils % Basophils % Absolute Neutrophils Absolute Lymphocytes Absolute Monocytes Absolute Eosinophils Absolute Basophils Carbonic Acid 1.01 L HCO3/H2CO3 Ratio 24:1 ABG pH 7.48 H ABG pCO2 33.5 L ABG pO2 74.4 L ABG HCO3 24.3 H ABG O2 Saturation 95.9 ABG Base Excess 1.4 FiO2 RA Sodium 141.8 Potassium 3.5 L Chloride 107 Carbon Dioxide 29 Anion Gap 6 BUN 17 Creatinine 1.86 H Est GFR ( Amer) 49 L Est GFR (Non-Af Amer) 40 L Glucose 112 H Calcium 8.9 Total Bilirubin AST ALT Alkaline Phosphatase Total Protein Albumin Urine Color Urine Appearance Urine pH Ur Specific Wing Urine Protein Urine Glucose (UA) Urine Ketones Urine Blood Urine Nitrite Ur Leukocyte Esterase Urine WBC (Auto) Urine RBC (Auto) 01/03/19 18:07 Creatine Kinase 493 H Impressions: Chest X-Ray 01/03/19 15:09 IMPRESSION: Negative chest allowing for low lung volumes. Head CT 01/04/19 05:24 IMPRESSION: No acute intracranial findings. Assessment and Plan - Diagnosis (1) Acute encephalopathy Is this a current diagnosis for this admission?: Yes Plan: Due to #2. Resolved. (2) Hypertensive emergency Is this a current diagnosis for this admission?: Yes Plan: Precipitated by cocaine use. (3) Polysubstance abuse Is this a current diagnosis for this admission?: Yes Plan: Patient encouraged and counseled to remain clean. (4) Obesity (BMI 30-39.9) Is this a current diagnosis for this admission?: Yes Plan: Patient advised to do lifestyle modification. (5) Obstructive sleep apnea Is this a current diagnosis for this admission?: Yes Plan: Patient again advised to do lifestyle modification. (6) Tobacco dependence Is this a current diagnosis for this admission?: Yes Plan: Patient counseled and encouraged to quit smoking.
[2019-01-04] MEDS ORDERED: LABETALOL HCL 200 MG TABLET PO SCH (22:00)
[2019-01-05] MEDS: ACETAMINOPHEN 325 MG TABLET PO PRN (00:06)
[2019-01-05 05:25] LABS: ANION GAP 8 (5-19); BLOOD UREA NITROGEN 26 mg/dL (7-20); CALCIUM 8.9 mg/dL (8.4-10.2); CARBON DIOXIDE 26 mmol/L (22-30); CHLORIDE 106 mmol/L (98-107); GLUCOSE 109 mg/dL (75-110); POTASSIUM 3.6 mmol/L (3.6-5.0); SODIUM 139.5 mmol/L (137-145)
[2019-01-05 08:26] VITALS: BP 168/78
--- NOTE | 2019-01-06 15:16 | PDOC DISCHARGE SUMMARY ---
General - Admit/Disc Date/PCP Admission Date/Primary Care Provider: 01/03/19 16:40 Discharge Date: 01/05/19 - Discharge Diagnosis (1) Acute encephalopathy Is this a current diagnosis for this admission?: Yes (2) Hypertensive emergency Is this a current diagnosis for this admission?: Yes (3) Polysubstance abuse Is this a current diagnosis for this admission?: Yes (4) Obesity (BMI 30-39.9) Is this a current diagnosis for this admission?: Yes (5) Obstructive sleep apnea Is this a current diagnosis for this admission?: Yes (6) Tobacco dependence Is this a current diagnosis for this admission?: Yes - Additional Information Resuscitation Status: Full Code Prescriptions: Hydralazine HCl [Apresoline 50 mg Tablet] 50 mg PO Q6H 30 Days #120 tablet Home Medications: Hydralazine HCl [Apresoline 50 mg Tablet] 50 mg PO Q6H 30 Days #120 tablet 01/05/19 History of Present Illness History of Present Illness: RACHEL PHELPS is a 38 year old male with a past medical history of hypertension, obesity, HERMAN, CKD, smoking, alcohol use and history of cocaine use who was brought in by EMS due to agitation at home. Patient reportedly has been using cocaine in the past 3 days and has has not been asleep since then. His called EMS to to increasing concern. Patient reportedly has been popping a handful of Benadryl pills at home reportedly to try to "mellow down the effects of cocaine". He was seen by EMS and his blood pressure was elevated at 230/130. He was given clonidine by EMS. En route patient became agitated and was given 2.5 mg IV Versed by EMS. In the ER, he appeared slightly lethargic but arousable. He received a total of 15 mg of IV hydralazine and his blood pressure did improve to the 160/100s. Upon encounter, patient appears lethargic but is arousable. He is able to tell me his name, he knows he is in the hospital and is able to tell me that it is December. He denies chest pain or shortness of breath. When asked how many pills of Benadryl he took, he responds "only a few". He does admit to having used cocaine recently. Hospital Course Hospital Course: This is 38 years old black male patient with past medical history of hypertension, CKD, obstructive sleep apnea, tobacco dependence and alcohol dependence brought by EMS for agitation and altered mental status. Reportedly patient has been smoking cocaine for several days in a row. When he presented to ER his blood pressure was 230/130 he was given hydralazine and clonidine. His urine drug screen is positive for benzodiazepine, cocaine and marijuana. This morning when I see the patient he is awake alert oriented he is not in pain or distress and his blood pressure is 1 6416. Patient is given labetalol and his blood pressure is relatively well controlled. Patient is awake alert oriented he is not in pain or distress. Patient encouraged and counseled to quit using illicit drugs and alcohol. And he voices agreement. I will send him home with hydralazine 50 mg 3 times a day and continue his home amlodipine. Physical Exam Vital Signs: Temp Pulse Resp BP Pulse Ox 98.2 F 80 18 168/78 H 100 01/05/19 08:00 01/05/19 08:00 01/05/19 08:00 01/05/19 08:00 01/05/19 08:00 Intake & Output 01/04/19 01/05/19 01/06/19 06:59 06:59 06:59 Intake Total 1000 3094 Output Total 0 675 Balance 1000 2419 Weight 112 kg 116.8 kg General appearance: PRESENT: no acute distress, well-developed, well-nourished Head exam: PRESENT: atraumatic, normocephalic Eye exam: PRESENT: conjunctiva pink, EOMI, PERRLA. ABSENT: scleral icterus Ear exam: PRESENT: normal external ear exam Mouth exam: PRESENT: moist, tongue midline Neck exam: ABSENT: carotid bruit, JVD, lymphadenopathy, thyromegaly Respiratory exam: PRESENT: clear to auscultation ban. ABSENT: rales, rhonchi, wheezes Cardiovascular exam: PRESENT: RRR. ABSENT: diastolic murmur, rubs, systolic murmur Pulses: PRESENT: normal dorsalis pedis pul Vascular exam: PRESENT: normal capillary refill GI/Abdominal exam: PRESENT: normal bowel sounds, soft. ABSENT: distended, guarding, mass, organolmegaly, rebound, tenderness Rectal exam: PRESENT: deferred Extremities exam: PRESENT: full ROM. ABSENT: calf tenderness, clubbing, pedal edema Neurological exam: PRESENT: alert, awake, oriented to person, oriented to place, oriented to time, oriented to situation, CN II-XII grossly intact. ABSENT: motor sensory deficit Psychiatric exam: PRESENT: appropriate affect, normal mood. ABSENT: homicidal ideation, suicidal ideation Skin exam: PRESENT: dry, intact, warm. ABSENT: cyanosis, rash Results Laboratory Results: 01/03/19 14:26 01/05/19 04:26 01/05/19 04:26 Sodium 139.5 Potassium 3.6 Chloride 106 Carbon Dioxide 26 Anion Gap 8 BUN 26 H Creatinine 2.18 H Est GFR ( Amer) 41 L Est GFR (Non-Af Amer) 34 L Glucose 109 Calcium 8.9 01/03/19 18:07 Creatine Kinase 493 H Impressions: Chest X-Ray 01/03/19 15:09 IMPRESSION: Negative chest allowing for low lung volumes. Head CT 01/04/19 05:24 IMPRESSION: No acute intracranial findings. Qualifiers - * PATIENT BEING DISCHARGED WITH ANY OF THE FOLLOWING DIAGNOSIS: No Acute Heart Failure - Is this a Heart Failure Patient?: No LVEF < 40%?: No- if no continue to question #3 3. Anticoagulant therapy for permanect/persistent/paraoxysmal Afib or Aflutter: N/A
== END 2019-01-05 09:04 | disposition home or self-care (01) | DRG 305 ==
LOC: ER 14:11 → EH 16:40 → 3S 21:47
PROVIDERS: ADMIT Internal Medicine; ATTEND Internal Medicine
DX: I16.0 Hypertensive urgency (principal); N17.9 Acute kidney failure, unspecified; G93.40 Encephalopathy, unspecified; I12.9 Hypertensive chronic kidney disease with stage 1 through stage 4 chronic kidney disease, or unspecified chronic kidney disease; N18.3 Chronic kidney disease, stage 3 (moderate); F14.10 Cocaine abuse, uncomplicated; F12.90 Cannabis use, unspecified, uncomplicated; F10.20 Alcohol dependence, uncomplicated; R00.0 Tachycardia, unspecified; Y90.0 Blood alcohol level of less than 20 mg/100 ml; G47.33 Obstructive sleep apnea (adult) (pediatric); F31.9 Bipolar disorder, unspecified; F17.210 Nicotine dependence, cigarettes, uncomplicated; I25.2 Old myocardial infarction; Z71.6 Tobacco abuse counseling
CPT/HCPCS: 36415; 70450; 71045; 80048; 80053; 80307; 81001; 82550; 82803; 85025; 93005; 93010; 94660; 96374; 96376; 99285; J0360; J1644; J3480; J7030

== ENCOUNTER 2019-01-18 00:05 | Inpatient (IN) | payer SELFPAY ==
[2019-01-18] MEDS ORDERED: HYDRALAZINE HCL 50 MG TABLET PO ONE (00:19)
--- NOTE | 2019-01-18 00:20 | ER Document Report ---
ED General - General Chief Complaint: Flank Pain Stated Complaint: FLANK PAIN Time Seen by Provider: 01/18/19 00:14 Notes: Patient is a pleasant 38-year-old male who presents with complaints of getting short of breath when he is being chased by police. He says that he feels a popping sensation in his left lower chest since he was running and got real short of breath. He says he is very out of shape. Please inform you that he did use cocaine just prior to them chasing him. He does have a long history of cocaine use and was actually admitted to the hospital not long ago for encephalopathy related to hypertension from cocaine use. Patient also has his chronic kidney disease. Patient says he is now feeling improved now that he is no longer running. Currently does not have any chest pain. Patient says he does take his medications as prescribed. He says he takes amlodipine 10 mg daily, lisinopril 5 mg daily, clonidine 0.1 mg daily, hydroxyzine unknown dose, hydralazine unknown dose once a day. In comparison to his discharge summary this med list seems to be an accurate. He says he takes all of his medications one a day however according to his medication list from his recent discharge summary he is supposed to be on amlodipine and he supposed to take hydralazine 50 mg Q6 hours. TRAVEL OUTSIDE OF THE [place] IN LAST 30 DAYS: No - Related Data Allergies/Adverse Reactions: No Known Allergies Allergy (Verified 09/09/17 14:59) Past Medical History - Social History Smoking Status: Unknown if Ever Smoked Frequency of alcohol use: Occasional Drug Abuse: Cocaine Family History: Reviewed & Not Pertinent, Other - patient is adopted and does not know his family history - Past Medical History Cardiac Medical History: Reports: Hx Heart Attack - Patient says he had a heart attack about a year ago., Hx Hypertension Pulmonary Medical History: Reports: Hx Sleep Apnea Renal/ Medical History: Denies: Hx Peritoneal Dialysis Past Surgical History: Reports: Hx Herniorrhaphy, Hx Orthopedic Surgery - Immunizations Hx Diphtheria, Pertussis, Tetanus Vaccination: Yes Review of Systems - Review of Systems Notes: My Normal Review Basic REVIEW OF SYSTEMS: CONSTITUTIONAL : Denies fever, chills, or sweats. Denies recent illness. EENT: Denies eye, ear, throat, or mouth pain or symptoms. Denies nasal or sinus congestion. CARDIOVASCULAR: Brief episode of chest tightness while he was running and became short of breath. RESPIRATORY: Difficulty breathing while running GASTROINTESTINAL: Denies abdominal pain. Denies nausea, vomiting, or diarrhea. GENITOURINARY: Denies difficulty urinating, painful urination, burning, frequency, or blood in urine. MUSCULOSKELETAL: Denies neck or back pain or joint pain or swelling. SKIN: Denies rash or skin lesions. NEUROLOGICAL: Denies altered mental status or loss of consciousness. Denies headache. Denies weakness or paralysis or loss of use of either side. Denies problems with gait or speech. Denies sensory or motor loss. PSYCHIATRIC: Notes that he has been under a lot of stress recently. ALL OTHER SYSTEMS REVIEWED AND NEGATIVE. Physical Exam - Vital signs Vitals: Resp 17 01/18/19 00:12 - Notes Notes: General Appearance: Well nourished, alert, cooperative, no acute distress, no obvious discomfort. Well-appearing. Vitals: reviewed, See vital signs table. Head: no swelling or tenderness to the head Eyes: PERRL, EOMI, Conjuctiva clear Mouth: No decreasd moisture Lungs: No wheezing, No rales, No rhonci, No accessory muscle use, good air exchange bilaterally. Heart: Normal rate, Regular rythm, No murmur, no rub Abdomen: Normal BS, soft, No rigidity, No abdominal tenderness, No guarding, no rebound, no abdominal masses, no organomegaly Extremities: strength 5/5 in all extremities, good pulses in all extremities, no swelling or tenderness in the extremities, no edema. Skin: warm, dry, appropriate color, no rash Neuro: speech clear, oriented x 3, normal affect, responds appropriately to questions. Course - Re-evaluation Re-evalutation: 01/18/19 02:24 Patient is chest pain-free at this time. He looks well. He is not short of breath. He feels that he is back to his baseline. I did obtain a troponin because patient had dyspnea and he said "I felt like does have a heart attack". This is after he also used cocaine. He also has multiple risk factors including renal disease as well as poorly controlled hypertension. Troponin is elevated. This could just be related to the cocaine itself however I feel that he does require further work-up. I did discuss the case with the hospitalist, Dr. Stephen, who agrees to accept the patient for admission. Dictation of this chart was performed using voice recognition software; there fore, there may be some unintended grammatical errors. - Vital Signs Vital signs: Temp Pulse Resp BP Pulse Ox 98 F 17 175/104 H 94 01/18/19 00:13 01/18/19 01:32 01/18/19 01:32 01/18/19 01:32 - Laboratory Result Diagrams: 01/18/19 00:20 01/18/19 00:20 Laboratory results interpreted by me: 01/18/19 01/18/19 00:20 00:20 RDW 15.0 H Seg Neutrophils % 84.1 H Lymphocytes % 8.4 L Chloride 108 H BUN 25 H Creatinine 1.90 H Est GFR ( Amer) 48 L Est GFR (Non-Af Amer) 39 L - EKG Interpretation by Me Additional EKG results interpreted by me: 01/18/19 00:36 EKG is reviewed and interpreted by me. EKG shows sinus rhythm with a rate of [address] segment elevation or depression. Does have T wave inversions in the lateral and lateral precordial leads however these are unchanged comparison to the previous EKG from January 03, 2019. Discharge - Discharge Clinical Impression: Cocaine abuse Dyspnea Qualifiers: Dyspnea type: unspecified Qualified Code(s): R06.00 - Dyspnea, unspecified Chest pain Qualifiers: Chest pain type: unspecified Qualified Code(s): R07.9 - Chest pain, unspecified Condition: Stable Disposition: ADMITTED OBSERVATION Admitting Provider: Zafar (Hospitalist) Unit Admitted: [facility]
[2019-01-18 00:35] LABS: ABSOLUTE BASOPHILS # (AUTO) 0.1 10^3/uL (0.0-0.2); ABSOLUTE LYMPHOCYTES (AUTO) 0.8 10^3/uL (0.5-4.7); ABSOLUTE MONOCYTES (AUTO) 0.5 10^3/uL (0.1-1.4); ABSOLUTE NEUT (AUTO) 7.7 10^3/uL (1.7-8.2); BASOPHILS % (AUTO) 1.2 % (0-2); EOSINOPHILS % (AUTO) 0.4 % (0-6); HEMATOCRIT 41.7 % (37.9-51.0); HEMOGLOBIN 13.8 g/dL (13.5-17.0); LYMPHOCYTES % (AUTO) 8.4 % (13-45); MEAN CORPUSCULAR HEMOGLOBIN 29.7 pg (27.0-33.4); MEAN CORPUSCULAR HGB CONC 33.2 g/dL (32.0-36.0); MEAN CORPUSCULAR VOLUME 90 fl (80-97); MONOCYTES % (AUTO) 5.9 % (3-13); PLATELET COUNT 219 10^3/uL (150-450); RED BLOOD COUNT 4.66 10^6/uL (4.35-5.55); SEGMENTED NEUTROPHILS % (AUTO) 84.1 % (42-78); TOTAL CELLS COUNTED % (AUTO) 100 %; WHITE BLOOD COUNT 9.2 10^3/uL (4.0-10.5)
[2019-01-18 00:50] LABS: ALANINE AMINOTRANSFERASE 71 U/L (21-72); ALBUMIN 3.7 g/dL (3.5-5.0); ALKALINE PHOSPHATASE 76 U/L (38-126); ANION GAP 8 (5-19); ASPARTATE AMINO TRANSFERASE 54 U/L (17-59); BILIRUBIN,DIRECT 0.2 mg/dL (0.0-0.4); BILIRUBIN,TOTAL 0.5 mg/dL (0.2-1.3); BLOOD UREA NITROGEN 25 mg/dL (7-20); CALCIUM 8.9 mg/dL (8.4-10.2); CARBON DIOXIDE 25 mmol/L (22-30); CHLORIDE 108 mmol/L (98-107); GLUCOSE 102 mg/dL (75-110); POTASSIUM 3.7 mmol/L (3.6-5.0); SODIUM 141.4 mmol/L (137-145); TOTAL PROTEIN 6.3 g/dL (6.3-8.2)
--- NOTE | 2019-01-18 01:16 | RADIOLOGY REPORT (SQ) ---
CLINICAL HISTORY: dyspnea COMPARISON: January 03, 2019. TECHNIQUE: XR CHEST 1 VIEW 01/18/2019 12:14 AM CDT FINDINGS: The heart is mildly enlarged. Lungs are clear without consolidation, atelectasis, mass or edema. There is no pleural effusion. There is no pneumothorax. There are no acute osseous findings. IMPRESSION: Clear lungs.
[2019-01-18] MEDS ORDERED: DIAZEPAM 5 MG TABLET PO ONE (01:22)
[2019-01-18] MEDS ORDERED: NITROGLYCERIN 2% OINTMENT 1 GM PACKET TP ONE (01:22)
[2019-01-18] MEDS ORDERED: CLOPIDOGREL BISULFATE 300 MG TABLET PO ONE (01:22)
[2019-01-18] MEDS ORDERED: AMLODIPINE BESYLATE 5 MG TABLET PO ONE (01:24)
[2019-01-18] MEDS ORDERED: NITROGLYCERIN 0.4 MG/TAB 25 TAB/BOTTLE SL PRN (01:24)
[2019-01-18] MEDS ORDERED: ACETAMINOPHEN 325 MG TABLET PO PRN (01:24)
[2019-01-18] MEDS ORDERED: MAG HYDROX/AL HYDROX/SIMETH SUSP 30 ML UDCUP PO PRN (01:24)
[2019-01-18] MEDS ORDERED: ATORVASTATIN CALCIUM 40 MG TABLET PO SCH (01:30)
[2019-01-18] MEDS ORDERED: ASPIRIN 325 MG TABLET PO ONE (01:30)
[2019-01-18] MEDS ORDERED: ENOXAPARIN SODIUM INJ 120 MG/0.8 ML DISP.SYRIN SUBCUT ONE (01:30)
[2019-01-18] MEDS ORDERED: ENALAPRILAT DIHYDRATE INJ/PF 1.25 MG/1 ML SDV IV ONE (05:32)
--- NOTE | 2019-01-18 05:35 | PDOC H&P ---
History of Present Illness Admission Date/PCP: 01/18/19 01:36 Patient complains of: chest pain History of Present Illness: RACHEL PHELPS is a 38 year old male with a past medical history of hypertension, obesity, obstructive sleep apnea, stage II chronic kidney disease, tobacco, alcohol and episodic cocaine use. He is brought to the emergency room in custody of [facility] after allegedly resisting arrest during which he developed chest pain prompting evaluation in the emergency room. He is found to have uncontrolled blood pressure of 200/130 he receives aspirin and nitroglycerin which resolves pain and improve his blood pressure. He is also found to have troponin of 0.11 and CKD at baseline troponin 1.9. He admits to smoking cocaine earlier in the day. He otherwise denies regular use of medications. Past Medical History Cardiac Medical History: Reports: Myocardial Infarction - Patient says he had a heart attack about a year ago., Hypertension Pulmonary Medical History: Reports: Chronic Obstructive Pulmonary Disease (COPD), Sleep Apnea Psychiatric Medical History: Reports: Substance Abuse, Tobacco Dependency Past Surgical History Past Surgical History: Reports: Herniorrhaphy, Orthopedic Surgery Social History Information Source: Patient Smoking Status: Current Every Day Smoker Frequency of Alcohol Use: Social Hx Recreational Drug Use: Yes Drugs: Cocaine Hx Prescription Drug Abuse: No - Advance Directive Resuscitation Status: Full Code Family History Family History: Other - patient is adopted and does not know his family history Parental Family History Reviewed: Yes Children Family History Reviewed: Yes Sibling(s) Family History Reviewed.: Yes Medication/Allergy Home Medications: Hydralazine HCl [Apresoline 50 mg Tablet] 50 mg PO Q6H 30 Days #120 tablet 01/05/19 Amlodipine Besylate [Norvasc 10 mg Tablet] 10 mg PO DAILY 01/18/19 Clonidine HCl [Catapres 0.1 mg Tablet] 0.1 mg PO Q8 01/18/19 Allergies/Adverse Reactions: No Known Allergies Allergy (Verified 09/09/17 14:59) Review of Systems Constitutional: ABSENT: chills, fever(s), headache(s), weight gain, weight loss Eyes: ABSENT: visual disturbances Ears: ABSENT: hearing changes Cardiovascular: ABSENT: chest pain, dyspnea on exertion, edema, orthropnea, palpitations Respiratory: ABSENT: cough, hemoptysis Gastrointestinal: ABSENT: abdominal pain, constipation, diarrhea, hematemesis, hematochezia, nausea, vomiting Genitourinary: ABSENT: dysuria, hematuria Musculoskeletal: ABSENT: joint swelling Integumentary: ABSENT: rash, wounds Neurological: ABSENT: abnormal gait, abnormal speech, confusion, dizziness, focal weakness, syncope Psychiatric: ABSENT: anxiety, depression, homidical ideation, suicidal ideation Endocrine: ABSENT: cold intolerance, heat intolerance, polydipsia, polyuria Hematologic/Lymphatic: ABSENT: easy bleeding, easy bruising Physical Exam Vital Signs: Temp Pulse Resp BP Pulse Ox 97.6 F 70 20 157/77 H 94 01/18/19 03:23 01/18/19 03:25 01/18/19 03:23 01/18/19 03:25 01/18/19 03:25 Intake & Output 01/16/19 01/17/19 01/18/19 11:59 11:59 11:59 Weight 117.934 kg General appearance: PRESENT: no acute distress, cooperative, disheveled, morbidly obese, other - Comfortable lying flat Head exam: PRESENT: atraumatic, normocephalic Eye exam: PRESENT: conjunctiva pink, EOMI, PERRLA. ABSENT: scleral icterus Ear exam: PRESENT: normal external ear exam Mouth exam: PRESENT: moist, tongue midline Neck exam: ABSENT: carotid bruit, lymphadenopathy, thyromegaly Respiratory exam: PRESENT: clear to auscultation ban, crackles, symmetrical, tachypnea. ABSENT: chest wall tenderness, rales, rhonchi, wheezes Cardiovascular exam: PRESENT: gallop, +S1, +S2, tachycardia Pulses: PRESENT: normal dorsalis pedis pul Vascular exam: PRESENT: normal capillary refill GI/Abdominal exam: PRESENT: normal bowel sounds, soft. ABSENT: distended, guarding, mass, organolmegaly, rebound, tenderness Rectal exam: PRESENT: deferred Extremities exam: PRESENT: full ROM. ABSENT: calf tenderness, clubbing, pedal edema Neurological exam: PRESENT: alert, awake, oriented to person, oriented to place, oriented to time, oriented to situation, CN II-XII grossly intact. ABSENT: motor sensory deficit Psychiatric exam: PRESENT: agitated, anxious Focused psych exam: PRESENT: restlessness Skin exam: PRESENT: dry, intact, warm. ABSENT: cyanosis, rash Results Laboratory Results: 01/18/19 00:20 01/18/19 00:20 01/18/19 01/18/19 00:20 00:20 WBC 9.2 RBC 4.66 Hgb 13.8 Hct 41.7 MCV 90 MCH 29.7 MCHC 33.2 RDW 15.0 H Plt Count 219 Seg Neutrophils % 84.1 H Lymphocytes % 8.4 L Monocytes % 5.9 Eosinophils % 0.4 Basophils % 1.2 Absolute Neutrophils 7.7 Absolute Lymphocytes 0.8 Absolute Monocytes 0.5 Absolute Eosinophils 0.0 Absolute Basophils 0.1 Sodium 141.4 Potassium 3.7 Chloride 108 H Carbon Dioxide 25 Anion Gap 8 BUN 25 H Creatinine 1.90 H Est GFR ( Amer) 48 L Est GFR (Non-Af Amer) 39 L Glucose 102 Calcium 8.9 Total Bilirubin 0.5 AST 54 ALT 71 Alkaline Phosphatase 76 Total Protein 6.3 Albumin 3.7 01/18/19 00:20 Troponin I 0.118 Impressions: Chest X-Ray 01/18/19 00:14 IMPRESSION: Clear lungs. Assessment and Plan - Diagnosis (1) Hypertensive emergency Is this a current diagnosis for this admission?: Yes Plan: Complicated by cocaine, clonidine, nitroglycerin, Vasotec, (2) Chronic kidney disease Is this a current diagnosis for this admission?: Yes Plan: At baseline, avoid nephrotoxic meds and doses follow-up chemistry (3) Chest pain Qualifiers: Chest pain type: unspecified Qualified Code(s): R07.9 - Chest pain, unspecified Is this a current diagnosis for this admission?: Yes Plan: Complicated by cocaine abuse, aspirin, Plavix, Lovenox, Valium, nitroglycerin and oxygen follow-up cardiac enzymes (4) Cocaine abuse Is this a current diagnosis for this admission?: Yes Plan: Valium, clonidine, education (5) Obstructive sleep apnea Is this a current diagnosis for this admission?: Yes Plan: BiPAP ordered - Time Time Spent with patient: 25-34 minutes - Inpatient Certification Medical Necessity: Need Close Monitoring Due to Risk of Patient Decompensation
[2019-01-18] MEDS ORDERED: HYDRALAZINE HCL 50 MG TABLET PO SCH (06:00)
[2019-01-18] MEDS ORDERED: CLONIDINE HCL 0.2 MG TABLET PO SCH (06:00)
[2019-01-18] MEDS ORDERED: DIAZEPAM 5 MG TABLET PO SCH (06:00)
[2019-01-18 08:54] VITALS: BP 145/90
[2019-01-18] MEDS ORDERED: ENOXAPARIN SODIUM INJ 120 MG/0.8 ML DISP.SYRIN SUBCUT SCH (10:00)
[2019-01-18] MEDS ORDERED: ASPIRIN 81 MG TABLET, CHEWABLE PO SCH (10:00)
[2019-01-18] MEDS ORDERED: BENZOCAINE/MENTHOL SORE THROAT LOZENGE BUCCAL PRN (11:06)
--- NOTE | 2019-01-18 12:10 | EKG REPORT ---
SEVERITY:- ABNORMAL ECG - SINUS RHYTHM ABNORMAL T, CONSIDER ISCHEMIA, LATERAL LEADS BORDERLINE PROLONGED QT INTERVAL : Confirmed by: Jordana Krishnan MD 18-Jan-2019 12:09:51
--- NOTE | 2019-01-18 14:16 | Left Against Medical Advice ---
Against Medical Advice Admission Date/Time: 01/18/19 01:36 Primary Care Provider: Date of Patient Emigration: 01/18/19 - Patient Eloped this hospital. - Diagnosis: (1) Chest pain Is this a current diagnosis for this admission?: Yes (2) Chronic kidney disease Is this a current diagnosis for this admission?: Yes (3) Cocaine abuse Is this a current diagnosis for this admission?: Yes (4) Hypertensive emergency Is this a current diagnosis for this admission?: Yes (5) Obstructive sleep apnea Is this a current diagnosis for this admission?: Yes - Summary: Summary: Please see Admission and Progress Notes as well. RACHEL PHELPS is a 38 M, who LEFT AGAINST MEDICAL ADVICE. The Patient was admitted on 01/18/19 01:36. Patient was admitted for management of hypertensive emergency complicated by cocaine and chest pain with mildly elevated troponins and no EKG changes. He was admitted to telemetry, start on clonidine, nitroglycerin, Vasotec, aspirin, Plavix, Lovenox, Valium. Cardiac enzymes were trended. Cardiology was consulted. Unfortunately patient left the hospital.
== END 2019-01-18 11:55 | disposition left against medical advice (07) | DRG 305 ==
LOC: ER 00:05 → EH 01:36 → 3W 03:21
PROVIDERS: ADMIT Internal Medicine; ATTEND Internal Medicine
DX: I16.1 Hypertensive emergency (principal); F14.10 Cocaine abuse, uncomplicated; R07.9 Chest pain, unspecified; R10.9 Unspecified abdominal pain; I12.9 Hypertensive chronic kidney disease with stage 1 through stage 4 chronic kidney disease, or unspecified chronic kidney disease; N18.9 Chronic kidney disease, unspecified; J44.9 Chronic obstructive pulmonary disease, unspecified; G47.33 Obstructive sleep apnea (adult) (pediatric); F17.200 Nicotine dependence, unspecified, uncomplicated
CPT/HCPCS: 36415; 71045; 80053; 84484; 85025; 93005; 93010; 99285; J1650; J3490

== ENCOUNTER 2019-07-24 11:43 | Emergency (ER) | payer SELFPAY ==
--- NOTE | 2019-07-24 14:47 | ER Document Report ---
ED Medical Screen (RME) - General Chief Complaint: Shortness Of Breath Stated Complaint: FEET SWELLING Time Seen by Provider: 07/24/19 12:05 Mode of Arrival: Wheelchair Information source: Patient Notes: 39-year-old male patient with past medical history of CHF presenting with cough and increased swelling to his bilateral lower extremities. Patient reports he takes Lasix 80 mg twice daily. He is not sure if he is having a CHF exacerbation or if he is having an upper respiratory illness like a cold. He denies any fevers. Denies any nausea, vomiting, diarrhea. 3+ pitting edema noted to bilateral lower extremities. I have greeted and performed a rapid initial assessment of this patient. A comprehensive ED assessment and evaluation of the patient, analysis of test results and completion of the medical decision making process will be conducted by additional ED providers. I have specifically instructed the patient or family members with the patient to immediately return to any nursing staff should anything change in the patient's condition or with their chief complaint. TRAVEL OUTSIDE OF THE [place] IN LAST 30 DAYS: No - Related Data Allergies/Adverse Reactions: No Known Allergies Allergy (Verified 07/24/19 11:58) Past Medical History - Past Medical History Cardiac Medical History: Reports: Hx Heart Attack - Patient says he had a heart attack about a year ago., Hx Hypertension Pulmonary Medical History: Reports: Hx COPD, Hx Sleep Apnea Renal/ Medical History: Denies: Hx Peritoneal Dialysis Past Surgical History: Reports: Hx Herniorrhaphy, Hx Orthopedic Surgery - Immunizations Hx Diphtheria, Pertussis, Tetanus Vaccination: Yes Physical Exam - Vital signs Vitals: Temp Pulse BP Pulse Ox 98.1 F 81 227/155 H 91 L 07/24/19 11:51 07/24/19 11:51 07/24/19 11:51 07/24/19 11:51 Course - Vital Signs Vital signs: Temp Pulse Resp BP Pulse Ox 98.1 F 81 16 204/129 H 100 07/24/19 11:51 07/24/19 11:51 07/24/19 13:01 07/24/19 13:01 07/24/19 13:01
[2019-07-24] MEDS ORDERED: LABETALOL HCL INJ 20 MG/4 ML DISP.SYRIN IV ONE ×2 (14:53→16:26)
[2019-07-24] MEDS ORDERED: FUROSEMIDE INJ/PF 100 MG/10 ML SDV IV ONE (14:53)
--- NOTE | 2019-07-24 15:38 | RADIOLOGY REPORT (SQ) ---
EXAM DESCRIPTION: CHEST SINGLE VIEW COMPLETED DATE/TIME: 07/24/2019 3:29 pm REASON FOR STUDY: sob/edema/eval for chf COMPARISON: EXAM PARAMETERS: NUMBER OF VIEWS: One view. TECHNIQUE: Single frontal radiographic view of the chest acquired. RADIATION DOSE: NA LIMITATIONS: None. FINDINGS: LUNGS AND PLEURA: No opacities, masses or pneumothorax. No pleural effusion. MEDIASTINUM AND HILAR STRUCTURES: No masses. Contour normal. HEART AND VASCULAR STRUCTURES: Heart normal in size. Normal vasculature. BONES: No acute findings. HARDWARE: None in the chest. OTHER: No other significant finding. IMPRESSION: No evidence of pulmonary edema. No significant effusion. Retrocardiac opacity, possibly atelectasis or infection. TECHNICAL DOCUMENTATION: JOB ID: [id number] [employer]- All Rights Reserved Reading location - IP/workstation name: [email or web address]
--- NOTE | 2019-07-24 16:07 | ER Document Report ---
Entered by JORY CHILDRESS SCRIBE 07/24/19 1453 Acting as scribe for:HANNAH SOUSA MD ED General - General Chief Complaint: Shortness Of Breath Stated Complaint: FEET SWELLING Time Seen by Provider: 07/24/19 12:05 Mode of Arrival: Wheelchair Information source: Patient Notes: This 39 year old male patient presents to the ED today with complaints of shortness of breath since x1 day ago. Patient states that he has also had bilateral feet swelling for the past few days. Patient reports associated productive cough, but denies fevers. Patient notes that he brings up white sputum with blood when he coughs. Patient states that he has not received a flu shot this year. Patient reports that he has ran out of his blood pressure medicine. TRAVEL OUTSIDE OF THE [place] IN LAST 30 DAYS: No - Related Data Allergies/Adverse Reactions: No Known Allergies Allergy (Verified 07/24/19 11:58) Past Medical History - General Information source: Patient - Social History Smoking Status: Never Smoker Cigarette use (# per day): No Chew tobacco use (# tins/day): No Smoking Education Provided: No Frequency of alcohol use: has been sober for past x2 weeks, but drank 12 pack of beer qd for years Drug Abuse: Cocaine - x1 week ago, Marijuana Family History: Other - patient is adopted and does not know his family history Patient has suicidal ideation: No Patient has homicidal ideation: No - Past Medical History Cardiac Medical History: Reports: Hx Heart Attack - Patient says he had a heart attack about a year ago., Hx Hypertension Pulmonary Medical History: Reports: Hx COPD, Hx Sleep Apnea Past Surgical History: Reports: Hx Herniorrhaphy, Hx Orthopedic Surgery - Immunizations Hx Diphtheria, Pertussis, Tetanus Vaccination: Yes Review of Systems - Review of Systems Constitutional: See HPI. denies: Fever EENT: No symptoms reported Cardiovascular: No symptoms reported Respiratory: See HPI, Cough, Short of breath, Sputum Gastrointestinal: No symptoms reported Genitourinary: No symptoms reported Male Genitourinary: No symptoms reported Musculoskeletal: See HPI, Other - Bilateral feet swelling Skin: No symptoms reported Hematologic/Lymphatic: No symptoms reported Neurological/Psychological: No symptoms reported -: Yes All other systems reviewed and negative Physical Exam - Vital signs Vitals: Pulse Ox 96 07/24/19 11:44 Interpretation: Hypertensive - General General appearance: Alert In distress: None - HEENT Head: Normocephalic, Atraumatic Eyes: Normal Pupils: PERRL - Respiratory Respiratory status: No respiratory distress Chest status: Nontender Breath sounds: Other - Dry cough Chest palpation: Normal - Cardiovascular Rhythm: Regular Heart sounds: Normal auscultation Murmur: No - Abdominal Inspection: Morbidly Obese Distension: No distension Bowel sounds: Normal Tenderness: Nontender Organomegaly: No organomegaly - Back Back: Normal, Nontender - Extremities General upper extremity: Normal inspection General lower extremity: Edema - 3+ pitting edema in LE - Neurological Neuro grossly intact: Yes - Psychological Associated symptoms: Normal affect, Normal mood - Skin Skin Temperature: Warm Skin Moisture: Dry Skin Color: Normal Course - Re-evaluation Re-evalutation: 07/24/19 20:38 Patient's influenza test came back as positive for influenza B. He is having acute on chronic renal failure. He has uncontrolled hypertension. We do not have dialysis available here this weekend, so the biology adjunct instructor felt he should be transferred to a facility that can dialyze him if it becomes necessary. He was accepted at [facility] by Dr. Higgins. 07/24/19 20:47 I just had a long talk with the patient's mother with the patient's permission. She fully understands the situation with him now, and asks if there is the way he could be committed to force him to stop drinking and doing drugs. I told him that under [place] law he did not qualify for involuntary commitment. - Vital Signs Vital signs: Temp Pulse Resp BP Pulse Ox 98.1 F 81 23 H 178/107 H 97 07/24/19 11:51 07/24/19 11:51 07/24/19 20:16 07/24/19 20:16 07/24/19 20:16 - Laboratory Result Diagrams: 07/24/19 12:50 07/24/19 12:50 Laboratory results interpreted by me: 07/24/19 07/24/19 07/24/19 12:50 12:50 12:50 RBC 4.04 L Hgb 12.0 L Hct 35.9 L RDW 16.1 H Lymph % (Auto) 10.6 L Seg Neutrophils % 79.1 H Potassium 2.9 L* BUN 68 H Creatinine 7.20 H Est GFR ( Amer) 10 L Est GFR (MDRD) Non-Af 8 L Glucose 113 H Magnesium 2.4 H Creatine Kinase 517 H NT-Pro-B Natriuret Pep 76819 H Urine Protein Urine Blood 07/24/19 16:45 RBC Hgb Hct RDW Lymph % (Auto) Seg Neutrophils % Potassium BUN Creatinine Est GFR ( Amer) Est GFR (MDRD) Non-Af Glucose Magnesium Creatine Kinase NT-Pro-B Natriuret Pep Urine Protein >=500 H Urine Blood SMALL H - Diagnostic Test Radiology reviewed: Image reviewed, Reports reviewed - Chest x-ray is read as no pulmonary edema. Retrocardiac opacity, possibly infection or atelectasis. - EKG Interpretation by Me EKG shows normal: Sinus rhythm, [place], QRS Complexes. abnormal: Intervals - Borderline prolonged QT interval, ST-T Waves - Borderline inferior T abnormalities Rate: Normal - 77 Rhythm: NSR Voltage: Consistant with LVH P Waves: LAE When compared to previous EKG there are: No significant change - Consults Dr. Higgins Time consulted: 20:05 Consulted provider: other - Will accept at [facility]. - Transfer of Care Care transferred to following provider: Dr. Higgins Notes: 07/24/19 20:49 Patient is presently on the nicardipine drip. He is awaiting transport to [facility]. Critical Care Note - Critical Care Note Total time excluding time spent on procedures (mins): 55 Comments: Phone calls discussing the patient with the hospitalist, with the biology adjunct instructor, and then attempt to transfer the patient. The first call to [facility] was transferred to [facility] where they do not have nephrology services this weekend, so they are going to try to find another doctor at [facility] to accept the patient. Patient is required multiple re-evaluations, repeat medications to try to bring his blood pressure under control. Discharge - Discharge Clinical Impression: Hypertensive emergency, Cocaine abuse, Elevated troponin, Hypokalemia, Influenza B Acute renal failure Qualifiers: Acute renal failure type: unspecified Qualified Code(s): N17.9 - Acute kidney failure, unspecified Proteinuria Qualifiers: Proteinuria type: unspecified Qualified Code(s): R80.9 - Proteinuria, unspecified Condition: Serious Disposition: [facility] Scribe Attestation: 07/24/19 20:19 I personally performed the services described in the documentation, reviewed and edited the documentation which was dictated to the scribe in my presence, and it accurately records my words and actions. I personally performed the services described in the documentation, reviewed and edited the documentation which was dictated to the scribe in my presence, and it accurately records my words and actions.
--- NOTE | 2019-07-24 16:24 | EKG REPORT ---
SEVERITY:- ABNORMAL ECG - SINUS RHYTHM PROBABLE LEFT ATRIAL ABNORMALITY LEFT VENTRICULAR HYPERTROPHY BORDERLINE T ABNORMALITIES, INFERIOR LEADS BORDERLINE PROLONGED QT INTERVAL : Confirmed by: Jordana Krishnan MD 24-Jul-2019 16:24:04
[2019-07-24 17:13] LABS: ABSOLUTE BASOPHILS # (AUTO) 0.1 10^3/uL (0.0-0.2); ABSOLUTE EOSINOPHILS # (AUTO) 0.2 10^3/uL (0.0-0.6); ABSOLUTE LYMPHOCYTES (AUTO) 0.9 10^3/uL (0.5-4.7); ABSOLUTE MONOCYTES (AUTO) 0.6 10^3/uL (0.1-1.4); ABSOLUTE NEUT (AUTO) 6.4 10^3/uL (1.7-8.2); EOSINOPHILS % (AUTO) 2.3 % (0-6); HEMATOCRIT 35.9 % (37.9-51.0); LYMPHOCYTES % (AUTO) 10.6 % (13-45); MEAN CORPUSCULAR HEMOGLOBIN 29.7 pg (27.0-33.4); MEAN CORPUSCULAR HGB CONC 33.4 g/dL (32.0-36.0); MEAN CORPUSCULAR VOLUME 89 fl (80-97); PLATELET COUNT 223 10^3/uL (150-450); RED BLOOD COUNT 4.04 10^6/uL (4.35-5.55); RED CELL DISTRIBUTION WIDTH 16.1 % (11.5-14.0); SEGMENTED NEUTROPHILS % (AUTO) 79.1 % (42-78); TOTAL CELLS COUNTED % (AUTO) 100 %; WHITE BLOOD COUNT 8.1 10^3/uL (4.0-10.5)
[2019-07-24 17:37] LABS: ALBUMIN 3.5 g/dL (3.5-5.0); ALKALINE PHOSPHATASE 65 U/L (38-126); ANION GAP 12 (5-19); ASPARTATE AMINO TRANSFERASE 27 U/L (17-59); BILIRUBIN,DIRECT 0.4 mg/dL (0.0-0.4); BILIRUBIN,TOTAL 0.8 mg/dL (0.2-1.3); BLOOD UREA NITROGEN 68 mg/dL (7-20); CARBON DIOXIDE 27 mmol/L (22-30); CHLORIDE 101 mmol/L (98-107); CREATINE KINASE 517 U/L (55-170); GLUCOSE 113 mg/dL (75-110); TOTAL PROTEIN 6.4 g/dL (6.3-8.2)
[2019-07-24 17:41] LABS: POTASSIUM 2.9 mmol/L (3.6-5.0)
[2019-07-24] MEDS ORDERED: HYDRALAZINE HCL INJ/PF 20 MG/1 ML SDV IV ONE (17:49)
[2019-07-24 17:56] LABS: TROPONIN I 0.172 ng/mL
[2019-07-24 18:02] LABS: APPEARANCE,URINE CLEAR; BILIRUBIN,URINE NEGATIVE (NEGATIVE); COLOR,URINE STRAW; GLUCOSE, URINE NEGATIVE (NEGATIVE); KETONES,URINE NEGATIVE (NEGATIVE); LEUKOCYTE ESTERASE,URINE NEGATIVE (NEGATIVE); NITRITE,URINE NEGATIVE (NEGATIVE); PROTEIN,URINE >=500 mg/dL (NEGATIVE); URINE SPECIFIC GRAVITY 1.007; UROBILINOGEN,URINE NEGATIVE mg/dL (<2.0)
[2019-07-24 18:31] LABS: URINE AMPHETAMINES SCREEN NEGATIVE; URINE BARBITURATES SCREEN NEGATIVE; URINE BENZODIAZEPINES SCREEN NEGATIVE; URINE MARIJUANA (THC) SCREEN NEGATIVE; URINE METHADONE SCREEN NEGATIVE; URINE PHENCYCLIDINE SCREEN NEGATIVE
[2019-07-24 18:33] LABS: URINE COCAINE SCREEN UNCONFIRMED POSITIVE
[2019-07-24] MEDS: NICARDIPINE HCL RTU, ISO-OS 20 MG/200 ML RTUINJ IV PRN ×2 (18:57→22:59)
[2019-07-24] MEDS ORDERED: ACETAMINOPHEN 325 MG TABLET PO ONE (20:02)
[2019-07-24] MEDS ORDERED: POTASSIUM CHLORIDE 10 MEQ TABLET.ER PO ONE (20:18)
[2019-07-24 20:29] LABS: A TYPE INFLUENZA AG NEGATIVE (NEGATIVE); B INFLUENZA AG POSITIVE (NEGATIVE)
[2019-07-25] MEDS ORDERED: NICARDIPINE HCL RTU, ISO-OS 20 MG/200 ML RTUINJ IV ONE (02:49)
[2019-07-25] MEDS ORDERED: ACETAMINOPHEN 325 MG TABLET PO ONE (02:58)
[2019-07-25] MEDS: NICARDIPINE HCL RTU, ISO-OS 20 MG/200 ML RTUINJ IV PRN (03:08)
[2019-07-25] MEDS ORDERED: CLONIDINE HCL 0.2 MG TABLET PO ONE (05:54)
[2019-07-25] MEDS ORDERED: NICARDIPINE HCL RTU, ISO-OS 20 MG/200 ML RTUINJ IV PRN ×2 (09:19→12:09)
[2019-07-25 10:13] LABS: ANION GAP 10 (5-19); BLOOD UREA NITROGEN 62 mg/dL (7-20); CALCIUM 8.8 mg/dL (8.4-10.2); CARBON DIOXIDE 29 mmol/L (22-30); CHLORIDE 102 mmol/L (98-107); GLUCOSE 113 mg/dL (75-110)
[2019-07-25 10:19] LABS: POTASSIUM 2.9 mmol/L (3.6-5.0)
[2019-07-25] MEDS ORDERED: LABETALOL HCL INJ 200 MG/40 ML VIAL IV ONE ×2 (12:39→16:47)
[2019-07-25] MEDS: LABETALOL HCL 200 MG in NORMAL SALINE 160 ML IV ONE ×2 (12:51→12:59)
[2019-07-25] MEDS ORDERED: LABETALOL HCL 200 MG in NORMAL SALINE 160 ML IV PRN ×2 (13:12→16:55)
[2019-07-25 16:16] LABS: ANION GAP 11 (5-19); BLOOD UREA NITROGEN 62 mg/dL (7-20); CALCIUM 8.4 mg/dL (8.4-10.2); CARBON DIOXIDE 27 mmol/L (22-30); CHLORIDE 101 mmol/L (98-107); GLUCOSE 107 mg/dL (75-110); POTASSIUM 3.3 mmol/L (3.6-5.0)
[2019-07-25] MEDS ORDERED: FUROSEMIDE INJ/PF 20 MG/2 ML SDV IV ONE (16:19)
[2019-07-25] MEDS ORDERED: HYDRALAZINE HCL INJ/PF 20 MG/1 ML SDV IV ONE (16:19)
[2019-07-25] MEDS ORDERED: POTASSIUM CHLORIDE 10 MEQ TABLET.ER PO ONE (16:19)
[2019-07-25 17:35] VITALS: BP 146/99
== END 2019-07-25 17:55 | disposition short-term general hospital (02) ==
LOC: ER 11:43
DX: J11.1 Influenza due to unidentified influenza virus with other respiratory manifestations (principal); N17.9 Acute kidney failure, unspecified; R80.9 Proteinuria, unspecified; F14.10 Cocaine abuse, uncomplicated; I16.0 Hypertensive urgency; E87.6 Hypokalemia; R79.89 Other specified abnormal findings of blood chemistry; E66.01 Morbid (severe) obesity due to excess calories; R06.02 Shortness of breath; M79.89 Other specified soft tissue disorders; I10 Essential (primary) hypertension; J44.9 Chronic obstructive pulmonary disease, unspecified; I25.2 Old myocardial infarction
CPT/HCPCS: 93005; 96376; 99291; 96375; 96365; 96366; 96367; 36415; 82550; 83735; 85025; 80048; 80053; 81001; 84484; 80307; 87804; 83880; 71045; 93010; J3490 ×4; J1940 ×2; J0360 ×2; J7050

== ENCOUNTER 2020-02-14 06:10 | Emergency (ER) | payer SELFPAY ==
[2020-02-14 06:22] VITALS: BP 187/132
--- NOTE | 2020-02-14 07:42 | RADIOLOGY REPORT (SQ) ---
EXAM: XR Left Foot Complete, 3 Views EXAM DATE/TIME: 02/14/2020 7:04 AM CLINICAL HISTORY: The patient is 40 years old and is Male; injury/pain/swelling TECHNIQUE: Frontal, lateral and oblique views of the left foot. COMPARISON: No relevant prior studies available. FINDINGS: BONES/JOINTS: No acute fracture visualized. No dislocation. The joint spaces are well-maintained. SOFT TISSUES: Diffuse soft tissue swelling. There is osseous spurring along the plantar aspect of the calcaneus, at the origin of the plantar fascia. IMPRESSION: Diffuse soft tissue swelling. No acute fracture visualized.
[2020-02-14] MEDS ORDERED: KETOROLAC TROMETHAMINE INJ/PF 30 MG/1 ML SDV IV ONE (10:36)
--- NOTE | 2020-02-14 10:38 | ER Document Report ---
ED Extremity Problem, Lower - General Chief Complaint: Foot Injury Stated Complaint: POSSIBLE BROKEN LEFT FOOT Time Seen by Provider: 02/14/20 10:05 Notes: 40-year-old man presents to the emergency department with a history of an injury to his left foot. Apparently he was working outside on Sunday when he stepped in the wrong way and felt a pop in his left foot. Since that time he has had increasing pain and swelling. Today the pain is increased and he is having difficulty walking. There is noted swelling in the left foot. He denies any other injury. Pain is on the top of the foot and denies ankle or lower leg related symptoms. TRAVEL OUTSIDE OF THE [place] IN LAST 30 DAYS: No - Related Data Allergies/Adverse Reactions: No Known Allergies Allergy (Verified 07/24/19 11:58) Past Medical History - Social History Smoking Status: Former Smoker Chew tobacco use (# tins/day): No Frequency of alcohol use: None Drug Abuse: Marijuana Family History: Other - patient is adopted and does not know his family history Patient has homicidal ideation: No - Past Medical History Cardiac Medical History: Reports: Hx Heart Attack - Patient says he had a heart attack about a year ago., Hx Hypertension Pulmonary Medical History: Reports: Hx COPD, Hx Sleep Apnea Renal/ Medical History: Denies: Hx Peritoneal Dialysis Past Surgical History: Reports: Hx Herniorrhaphy, Hx Orthopedic Surgery - Immunizations Hx Diphtheria, Pertussis, Tetanus Vaccination: Yes Review of Systems - Review of Systems Notes: Constitutional: Negative for fever. HENT: Negative for sore throat. Eyes: Negative for visual changes. Cardiovascular: Negative for chest pain. Respiratory: Negative for shortness of breath. Gastrointestinal: Negative for abdominal pain, vomiting or diarrhea. Genitourinary: Negative for dysuria. Musculoskeletal: See HPI Skin: Negative for rash. Neurological: Negative for headaches, weakness or numbness. 10 point ROS negative except as marked above and in HPI. Physical Exam - Vital signs Vitals: Temp Pulse Resp BP Pulse Ox 98.4 F 101 H 28 H 187/132 H 100 02/14/20 06:17 02/14/20 06:17 02/14/20 06:17 02/14/20 06:17 02/14/20 06:17 - Notes Notes: PHYSICAL EXAMINATION: Physical Exam: General: Well-nourished well-developed in no acute distress HEENT: NC/AT, pupils equal round and reactive to light, MM moist,nares clear, oropharynx clear, airway patent Neck: supple, no adenopathy, no masses. Good range of motion Lungs: clear, no wheezing, no rales no rhonchi CVS: Regular rate and rhythm no murmur gallop or rub Abdomen: Soft, active, nontender, no masses, no hepatosplenomegaly Ext: + Swelling and tenderness on the dorsal aspect of the left foot. Neurovascular intact, no obvious crepitus or step-off. Neuro: Alert and responsive, moving all 4 extremities on command, cranial nerves intact, no focal findings Skin: Intact no open lesions, no rash Course - Vital Signs Vital signs: Temp Pulse Resp BP Pulse Ox 98.4 F 101 H 28 H 187/132 H 100 02/14/20 06:17 02/14/20 06:17 02/14/20 06:17 02/14/20 06:17 02/14/20 06:17 - Diagnostic Test Radiology reviewed: Image reviewed, Reports reviewed Radiology results interpreted by me: 02/14/20 12:24 X-ray left foot: No fracture, no dislocation, soft tissue swelling. Procedures - Immobilization Left Foot Immobilizer type: Crutches - Use crutches for ambulation. Nonweightbearing Discharge - Discharge Clinical Impression: Sprain of left foot Condition: Good Disposition: HOME, SELF-CARE Instructions: Ice Packs ([facility]), Sprain ([facility]) Additional Instructions: You were seen in the emergency department today with a sprain of the left foot. X-rays were negative for fracture. You may use the crutches, elevate the extremity, apply ice and follow-up with your primary care doctor as needed. HOME CARE INSTRUCTIONS & INFORMATION: Thank you for choosing us for your medical needs. We hope you're satisfied with the care you received. After you leave, you must properly care for your problem and, at the same time, observe its progress. Any condition can change. Some illnesses can change rapidly over hours or days. If your condition worsens, return to the Emergency Department or see your physician promptly. ABOUT YOUR X-RAYS AND EKG'S: If you had an EKG or X-rays taken, they have been read by the Emergency Physician. The X-rays and EKG's will also be read by a Radiologist or [facility] Preparatory Operator within 24 hours. If discrepancies are noted, you will be notified by telephone. Please be certain the ED has a correct telephone number & address where you can be reached. Also, realize that some fractures or abnormalities do not show up on initial X-rays. If your symptoms continue, see your physician. ABOUT YOUR LABORATORY TEST: If you had laboratory tests, the results have been reviewed by the Emergency Physician. Some test results (for example cultures) may not be available for several days. You will be contacted if any test result shows you need additional treatment. Please be certain the ED has a correct telephone number and address where you can be reached. ABOUT YOUR MEDICATIONS: You will receive instructions on how to take your medicine on the prescription label you receive. Additional information may be provided by the Pharmacy. If you have questions afterwards, call the ED for clarification or further instructions. Some prescribed medications may cause drowsiness. Do not perform tasks such as driving a car or operating machinery without consulting your Pharmacist. If you feel you need a refill of pain medication, your condition will need re-evaluation. Please do not call for a refill of any medication. ABOUT YOUR SIGNATURE: Signature of this document acknowledges to followin. Understanding that you received emergency treatment and that you may be released before al medical problems are known or treated. Please be certain the ED has a correct phone number & address where you can be reached. 2. Acknowledgement that you will arrange for follow-up care as recommended. 3. Authorization for the Emergency Physician to provide information to your follow-up Physician in order to maximize your care. AT ANY TIME, IF YOUR SYMPTOMS CHANGE SIGNIFICANTLY OR WORSEN OR YOU DEVELOP NEW SYMPTOMS, RETURN TO THE EMERGENCY DEPARTMENT IMMEDIATELY FOR RE-EVALUATION. OUR GOAL IS TO PROVIDE EXCELLENT MEDICAL CARE! WE HOPE THAT WE HAVE MET YOUR EXPECTATIONS DURING YOUR EMERGENCY DEPARTMENT VISIT AND THAT YOU FEEL YOU HAVE RECEIVED EXCELLENT CARE! Prescriptions: Naproxen [Naprosyn] 500 mg PO BID #20 tablet
[2020-02-14] MEDS ORDERED: KETOROLAC TROMETHAMINE INJ/PF 30 MG/1 ML SDV IM ONE (10:44)
== END 2020-02-14 13:40 | disposition home or self-care (01) ==
LOC: ER 06:10
DX: S93.602A Unspecified sprain of left foot, initial encounter (principal); X58.XXXA Exposure to other specified factors, initial encounter; J44.9 Chronic obstructive pulmonary disease, unspecified; I10 Essential (primary) hypertension; Z87.891 Personal history of nicotine dependence
CPT/HCPCS: 99283; 96372; 73630; J1885

== ENCOUNTER 2020-04-22 23:13 | Inpatient (IN) | payer SELFPAY ==
[2020-04-23] MEDS ORDERED: HYDRALAZINE HCL 25 MG TABLET PO ONE (00:58)
[2020-04-23] MEDS ORDERED: LISINOPRIL 10 MG TABLET PO ONE (00:58)
[2020-04-23] MEDS ORDERED: AMLODIPINE BESYLATE 10 MG TABLET PO ONE (00:58)
--- NOTE | 2020-04-23 01:04 | ER Document Report ---
ED Medical Screen (RME) - General Stated Complaint: CHEST PAIN SHORTNESS OF BREATH FATIQUE Time Seen by Provider: 04/23/20 00:49 Mode of Arrival: Wheelchair Information source: Patient Notes: Patient presents complaining of swelling and fatigue for the past week. Patient reports inability to lay flat at night. Patient reports occasional blood in his sputum. Patient complains of chest pressure for the past week as well. Patient states he cannot ambulate without dyspnea. Patient has a history of CHF, hypertension and chronic kidney disease. Patient has been out of 3 of the 4 of his blood pressure medications. Patient states he ran out of amlodipine 2 weeks ago and ran out of his lisinopril and hydralazine about a month ago. Patient has been taking his Coreg and Lasix. Patient with peripheral edema. I have greeted and performed a rapid initial assessment of this patient. A comprehensive ED assessment and evaluation of the patient, analysis of test results and completion of the medical decision making process will be conducted by additional ED providers. TRAVEL OUTSIDE OF THE [place] IN LAST 30 DAYS: No - Related Data Allergies/Adverse Reactions: No Known Allergies Allergy (Verified 07/24/19 11:58) Past Medical History - Past Medical History Cardiac Medical History: Reports: Hx Heart Attack - Patient says he had a heart attack about a year ago., Hx Hypertension Pulmonary Medical History: Reports: Hx COPD, Hx Sleep Apnea Renal/ Medical History: Denies: Hx Peritoneal Dialysis Past Surgical History: Reports: Hx Herniorrhaphy, Hx Orthopedic Surgery - Immunizations Hx Diphtheria, Pertussis, Tetanus Vaccination: Yes Physical Exam - Vital signs Vitals: Temp Pulse Resp BP Pulse Ox 98.1 F 87 18 244/146 H 99 04/22/20 23:44 04/22/20 23:44 04/22/20 23:44 04/22/20 23:44 04/22/20 23:44 - Respiratory Respiratory status: Labored - Slightly Chest status: Tender - Cardiovascular Rhythm: Regular Heart sounds: S1 appreciated, S2 appreciated - Extremities General lower extremity: Edema - 3-4+ Course - Re-evaluation Re-evalutation: 04/23/20 01:03 Patient has his pill bottles with him. Consulted with Dr. Wu as far as which medications to administer in triage as patient is waiting for room. Dr Wu advises giving patient amlodipine and lisinopril 10 mg as well as hydralazine 25 mg. - Vital Signs Vital signs: Temp Pulse Resp BP Pulse Ox 98.1 F 87 18 244/146 H 99 04/22/20 23:44 04/22/20 23:44 04/22/20 23:44 04/22/20 23:44 04/22/20 23:44
--- NOTE | 2020-04-23 01:46 | ER Document Report ---
ED General - General Chief Complaint: Shortness Of Breath Stated Complaint: CHEST PAIN SHORTNESS OF BREATH FATIQUE Time Seen by Provider: 04/23/20 00:49 Mode of Arrival: Wheelchair TRAVEL OUTSIDE OF THE [place] IN LAST 30 DAYS: No - HPI Notes: Patient is a 40 y/o male with a hx of CHF, HTN, HERMAN and chronic kidney disease who presents for chest pain and shortness of breath that has been worsening for the past week. Patient ran out of his Hydralazine and lisinopril about one blossom h ago and ran out of amlodipine two weeks ago. He describes his chest pain as pressure and heaviness with no radiating pain. He reports fatigue, orthopnea, paroxysmal nocturnal dyspnea, peripheral edema, and productive cough with mild hemoptysis. Patient has a hx of cocaine use but has been clean for the past year. Patient denies headache, dizziness, nausea, vomiting, abdominal pain, and fever. - Related Data Allergies/Adverse Reactions: No Known Allergies Allergy (Verified 07/24/19 11:58) Home Medications: amilodipne, lisinopril, coreg, hydraziline, low dose asa, lasix Past Medical History - General Information source: Patient - Social History Smoking Status: Never Smoker Frequency of alcohol use: Heavy Family History: Other - patient is adopted and does not know his family history - Past Medical History Cardiac Medical History: Reports: Hx Heart Attack - Patient says he had a heart attack about a year ago., Hx Hypertension Pulmonary Medical History: Reports: Hx COPD, Hx Sleep Apnea Renal/ Medical History: Denies: Hx Peritoneal Dialysis Past Surgical History: Reports: Hx Herniorrhaphy, Hx Orthopedic Surgery - Immunizations Hx Diphtheria, Pertussis, Tetanus Vaccination: Yes Review of Systems - Review of Systems Constitutional: See HPI EENT: No symptoms reported Cardiovascular: See HPI Respiratory: See HPI Gastrointestinal: No symptoms reported Genitourinary: No symptoms reported Male Genitourinary: No symptoms reported Musculoskeletal: No symptoms reported Skin: No symptoms reported Hematologic/Lymphatic: No symptoms reported Neurological/Psychological: No symptoms reported Physical Exam - Vital signs Vitals: Temp Pulse Resp BP Pulse Ox 98.1 F 87 18 244/146 H 99 04/22/20 23:44 04/22/20 23:44 04/22/20 23:44 04/22/20 23:44 04/22/20 23:44 - Notes Notes: PHYSICAL EXAMINATION: VITALS: Vitals reviewed and patient is extremely hypertensive. GENERAL: Patient is sitting upright in bed and is visibly short of breath in mild distress. HEAD: Atraumatic, normocephalic. EYES: Pupils equal round and reactive to light, extraocular movements intact, sclera anicteric, conjunctiva are normal. ENT: nares patent, oropharynx clear without exudates. Moist mucous membranes. NECK: Normal range of motion, supple without lymphadenopathy. LUNGS: Expiratory wheezes noted through out bilaterally. No rales or rhonchi. HEART: Regular rate and rhythm without murmurs. ABDOMEN: Soft, nontender, normoactive bowel sounds. No guarding, no rebound. No masses appreciated. EXTREMITIES: 2+ pitting edema to his bilateral lower extremities starting at his feet and extending past his knees. Normal range of motion. No cyanosis. NEUROLOGICAL: No focal neurological deficits. Moves all extremities spontaneously and on command. PSYCH: Normal mood, normal affect. SKIN: Warm, Dry, normal turgor, no rashes or lesions noted. Course - Re-evaluation Re-evalutation: Patient is a 40 y/o male with a hx of CHF, HTN, and cocaine abuse who presents for SOB, chest pain and hypertension for the past week. Patient has not been compliant with his medication. SBPs in the 240s. On exam, expiratory wheezing throughout bilaterally and pitting edema to BLE. 04/23/20 02:00 Patient placed on oxygen via NC, NTG sublingual and Lasix 40mg IV ordered due to shortness of breath and significant peripheral edema with a history of CHF. 04/23/20 02:30 Informed by nursing of elevated troponin of 0.123. Reviewed old records and current troponin is the patient's baseline. 04/23/20 02:40 CXR shows cardiomegaly without acute pulmonary abnormalities. pro- BNP 24,700. Cr significantly elevated at 12.64 with most recent Cr at 6.41 in 06/2019. Electrolytes normal with K at 4.2 and Na at 142.7. CO2 16. Significant concern for acute kidney failure with hypertensive emergency. 04/23/20 02:50 I consulted with my attending physician, Dr. Wu, concerning my patient. He recommended starting a nicardipine drip to better control his blood pressure and consulting nephrology for ICU admission. 04/23/20 03:01 Called placed to be connected with Dr. Duglas Fajardo. Adam bruce rip started by nursing. 04/23/20 03:[address] Fajardo concerning this patient, he recommends ICU admission here at [facility] but no urgent need for dialysis at this moment. He will see the patient in the morning. 04/23/20 03:09 Called made to Ishan Mckeon NP who is custodial operations manager for ICU. 04/23/20 03:23 Notified by ICU elementary secretary that Ishan Mckeon NP is at a code and did not bring her phone. Will try to contact her again once more time has passed. 04/23/20 03:55 Contacted by Ishan Mckeon NP, discussed the patient with her. She agrees to come evaluate the patient and will come talk to me once she is down here. 04/23/20 05:44 Ishan Mckeon has accepted the patient for inpatient admission to the ICU. She was delayed due to multiple codes. Patient's BP now 166/101. - Vital Signs Vital signs: Temp Pulse Resp BP Pulse Ox 98.1 F 87 19 157/100 H 97 04/22/20 23:44 04/22/20 23:44 04/23/20 06:46 04/23/20 06:46 04/23/20 06:46 - Laboratory Result Diagrams: 04/23/20 01:38 04/23/20 01:38 Laboratory results interpreted by me: 04/23/20 04/23/20 04/23/20 01:38 01:38 01:38 RBC 3.03 L Hgb 9.1 L Hct 27.3 L RDW 17.6 H Lymph % (Auto) 9.4 L Seg Neutrophils % 78.4 H Chloride 110 H Carbon Dioxide 16 L BUN 109 H Creatinine 12.64 H Est GFR ( Amer) 5 L Est GFR (MDRD) Non-Af 4 L Calcium 7.7 L NT-Pro-B Natriuret Pep 32173 H Total Protein 6.0 L Urine Protein Urine Glucose (UA) Urine Blood 04/23/20 02:24 RBC Hgb Hct RDW Lymph % (Auto) Seg Neutrophils % Chloride Carbon Dioxide BUN Creatinine Est GFR ( Amer) Est GFR (MDRD) Non-Af Calcium NT-Pro-B Natriuret Pep Total Protein Urine Protein >=500 H Urine Glucose (UA) 50 H Urine Blood SMALL H - Diagnostic Test Radiology reviewed: Image reviewed, Reports reviewed Radiology results interpreted by me: Chest X-Ray 04/23/20 00:59 IMPRESSION: Cardiomegaly without acute pulmonary abnormalities. - EKG Interpretation by Me Additional EKG results interpreted by me: Sinus rhythm with a rate of 88. QTc prolonged at 533. Normal axis. T wave flattening in lateral and inferior leads. No ST segment changes in consecutive leads. Critical Care Note - Critical Care Note Total time excluding time spent on procedures (mins): 35 Comments: Please allow 35 minutes of critical care time for evaluation and management of this critically ill patient. Interventions including supplemental oxygen, NTG, and cardene drip. Time spent reviewing records, performing multiple re- evaluations, discussing with game advisor and bindery machine setter, admitting to the ICU. Discharge - Discharge Clinical Impression: Hypertensive emergency, Swelling of lower extremity, Shortness of breath Acute kidney failure Qualifiers: Acute renal failure type: unspecified Qualified Code(s): N17.9 - Acute kidney failure, unspecified Chest pain Qualifiers: Chest pain type: unspecified Qualified Code(s): R07.9 - Chest pain, unspecified Condition: Stable Disposition: ADMITTED INPATIENT Admitting Provider: Sofia (Batch Operator) Unit Admitted: ICU
--- NOTE | 2020-04-23 01:53 | RADIOLOGY REPORT (SQ) ---
EXAM DESCRIPTION: XR CHEST 1 VIEW COMPLETED DATE/TME: 04/23/2020 00:59 CLINICAL INDICATION: 40-year-old male with chest pain. TECHNIQUE: Single view, AP portable chest was obtained. COMPARISON: 07/24/2019. FINDINGS: Stable enlarged cardiac and mediastinal silhouette. Heart size is enlarged. Tortuous thoracic aorta. Low lung volumes grossly clear without focal opacity, pneumothorax or pleural effusions. The visualized bones are within normal limits. IMPRESSION: Cardiomegaly without acute pulmonary abnormalities.
[2020-04-23 01:54] LABS: ABSOLUTE BASOPHILS # (AUTO) 0.1 10^3/uL (0.0-0.2); ABSOLUTE EOSINOPHILS # (AUTO) 0.3 10^3/uL (0.0-0.6); ABSOLUTE MONOCYTES (AUTO) 0.8 10^3/uL (0.1-1.4); PLATELET COUNT 261 10^3/uL (150-450); TOTAL CELLS COUNTED % (AUTO) 100 %
[2020-04-23 01:58] LABS: ABSOLUTE LYMPHOCYTES (AUTO) 0.9 10^3/uL (0.5-4.7); ABSOLUTE NEUT (AUTO) 7.8 10^3/uL (1.7-8.2); EOSINOPHILS % (AUTO) 3.1 % (0-6); HEMATOCRIT 27.3 % (37.9-51.0); HEMOGLOBIN 9.1 g/dL (13.5-17.0); LYMPHOCYTES % (AUTO) 9.4 % (13-45); MEAN CORPUSCULAR HEMOGLOBIN 30.2 pg (27.0-33.4); MEAN CORPUSCULAR HGB CONC 33.4 g/dL (32.0-36.0); MEAN CORPUSCULAR VOLUME 90 fl (80-97); MONOCYTES % (AUTO) 8.1 % (3-13); RED BLOOD COUNT 3.03 10^6/uL (4.35-5.55); RED CELL DISTRIBUTION WIDTH 17.6 % (11.5-14.0); SEGMENTED NEUTROPHILS % (AUTO) 78.4 % (42-78)
[2020-04-23] MEDS ORDERED: NITROGLYCERIN 0.4 MG/TAB 25 TAB/BOTTLE SL ONE (02:02)
[2020-04-23] MEDS ORDERED: FUROSEMIDE INJ/PF 40 MG/4 ML SDV IV ONE (02:03)
[2020-04-23 02:12] LABS: ALBUMIN 3.5 g/dL (3.5-5.0); ALKALINE PHOSPHATASE 75 U/L (38-126); ANION GAP 17 (5-19); ASPARTATE AMINO TRANSFERASE 17 U/L (17-59); BILIRUBIN,DIRECT 0.3 mg/dL (0.0-0.4); BILIRUBIN,TOTAL 0.4 mg/dL (0.2-1.3); BLOOD UREA NITROGEN 109 mg/dL (7-20); CALCIUM 7.7 mg/dL (8.4-10.2); CARBON DIOXIDE 16 mmol/L (22-30); CHLORIDE 110 mmol/L (98-107); GLUCOSE 110 mg/dL (75-110); POTASSIUM 4.2 mmol/L (3.6-5.0)
[2020-04-23] MEDS: NITROGLYCERIN 0.4 MG/TAB 25 TAB/BOTTLE SL PRN ×2 (02:29→02:37)
[2020-04-23 02:31] LABS: TROPONIN I 0.123 ng/mL
[2020-04-23] MEDS ORDERED: NICARDIPINE HCL RTU, ISO-OS 20 MG/200 ML RTUINJ IV PRN (02:54)
[2020-04-23 02:55] LABS: APPEARANCE,URINE CLEAR; BILIRUBIN,URINE NEGATIVE (NEGATIVE); COLOR,URINE STRAW; GLUCOSE, URINE 50 mg/dL (NEGATIVE); KETONES,URINE NEGATIVE (NEGATIVE); LEUKOCYTE ESTERASE,URINE NEGATIVE (NEGATIVE); NITRITE,URINE NEGATIVE (NEGATIVE); PROTEIN,URINE >=500 mg/dL (NEGATIVE); URINE SPECIFIC GRAVITY 1.011; UROBILINOGEN,URINE NEGATIVE mg/dL (<2.0)
[2020-04-23 03:09] LABS: URINE AMPHETAMINES SCREEN NEGATIVE; URINE BARBITURATES SCREEN NEGATIVE; URINE BENZODIAZEPINES SCREEN NEGATIVE; URINE COCAINE SCREEN NEGATIVE; URINE MARIJUANA (THC) SCREEN NEGATIVE; URINE METHADONE SCREEN NEGATIVE; URINE PHENCYCLIDINE SCREEN NEGATIVE
[2020-04-23] MEDS ORDERED: FUROSEMIDE INJ/PF 100 MG/10 ML SDV IV ONE (04:07)
[2020-04-23] MEDS: HEPARIN SOD (PORCINE) 5,000 UNIT/ML 1 ML VIAL SUBCUT SCH ×3 (06:37→21:27)
[2020-04-23] MEDS ORDERED: HYDRALAZINE HCL INJ/PF 20 MG/1 ML SDV IV ONE (06:42)
--- NOTE | 2020-04-23 06:53 | CRITICAL CARE ADMISSION REPORT ---
HPI Date:: 04/23/20 Time:: 06:30 Reason for ICU Reason:: CHF,ARF Admission Date/Time & PCP: Admission Date/Time: 04/23/20 05:58 Primary Care Provider: HPI: Mr. Jeremy Quinonez is a 40-year-old male with past medical history of CHF, hypertension, obstructive sleep apnea, and chronic kidney disease who presented to the ED with complaints of chest pain, swelling of the lower extremities, and shortness of breath that has been ongoing and worsening in the past week. According to the patient he has run out of hydralazine and lisinopril about 1 month ago as well as amlodipine 2 weeks ago. He states his chest pain is more of a pressure and it is nonradiating nothing makes it better or worse. He states he has been fatigued for the past week. Denies any fever, chills, nausea, vomiting, headache, or dizziness. Labs were sent in the ED his BUN and is 109, creatinine 12.64, calcium 7.7, pro BNP 24,700, troponin 0 0.123. UA negative. Chest x-ray shows pulmonary edema. Even a total of 120 mg Lasix in the ED. Dr. Fajardo advanced quality engineer was consulted and will see him. He is admitted to the ICU for further management of CHF and acute renal failure. - Diagnosis/Plan (1) Acute kidney failure Qualifiers: Acute renal failure type: unspecified Qualified Code(s): N17.9 - Acute kidney failure, unspecified Is this a current diagnosis for this admission?: Yes Plan: Consult Dr. Fajardo nephrology. Creatinine 12.64, in June he was 6.41 prior to that he had been 1.8-2. Severely volume overloaded with a proBNP greater than 27,000. Will likely need dialysis. (2) CHF (congestive heart failure) Qualifiers: Heart failure chronicity: acute on chronic Is this a current diagnosis for this admission?: Yes Plan: will get echo. Will most likely need dialysis for volume overload. Lasix 120 mg IV given in the ED. (3) Hypertensive emergency Is this a current diagnosis for this admission?: Yes Plan: Cardene initiated in the ED. Currently off at this time We will use hydralazine IV as needed Past Medical History Cardiac Medical History: Reports: Myocardial Infarction - Patient says he had a heart attack about a year ago., Hypertension Pulmonary Medical History: Reports: Chronic Obstructive Pulmonary Disease (COPD), Sleep Apnea Past Surgical History Past Surgical History: Reports: Herniorrhaphy, Orthopedic Surgery Social/Family History - Social History Smoking Status: Never Smoker Frequency of Alcohol Use: Social Hx Recreational Drug Use: Yes Drugs: Cocaine Hx Prescription Drug Abuse: No - Medication/Allergies Home Medications: Hydralazine HCl [Apresoline 50 mg Tablet] 50 mg PO Q6H 30 Days #120 tablet 01/05/19 Amlodipine Besylate [Norvasc 10 mg Tablet] 10 mg PO DAILY 01/18/19 Clonidine HCl [Catapres 0.1 mg Tablet] 0.1 mg PO Q8 01/18/19 Naproxen [Naprosyn] 500 mg PO BID #20 tablet 02/14/20 Allergies/Adverse Reactions: No Known Allergies Allergy (Verified 07/24/19 11:58) Review of Systems All systems: reviewed and no additional remarkable complaints except as stated Cardiovascular: PRESENT: chest pain, edema, orthropnea Respiratory: PRESENT: dyspnea Physical Exam Vital Signs: Temp Pulse Resp BP Pulse Ox 98.1 F 87 19 153/100 H 99 04/22/20 23:44 04/22/20 23:44 04/23/20 06:16 04/23/20 06:16 04/23/20 06:01 Intake & Output 04/21/20 04/22/20 04/23/20 06:59 06:59 06:59 Intake Total 184 Output Total 450 Balance -266 Weight 124.3 kg Weight/Height Weight 124.3 kg Height 5 ft 9 in General appearance: PRESENT: mild distress Head exam: PRESENT: atraumatic, normocephalic Eye exam: PRESENT: PERRLA Mouth exam: PRESENT: moist, neck supple Neck exam: PRESENT: full ROM Respiratory exam: PRESENT: rales Cardiovascular exam: PRESENT: RRR, +S1, +S2 Pulses: PRESENT: normal radial pulses GI/Abdominal exam: PRESENT: normal bowel sounds Extremities exam: PRESENT: +2 edema Neurological exam: PRESENT: alert, awake, oriented to person, oriented to place, oriented to time, oriented to situation Laboratory/Radiographs Laboratory Results: 04/23/20 01:38 04/23/20 01:38 04/23/20 04/23/20 04/23/20 01:38 01:38 02:24 WBC 10.0 RBC 3.03 L Hgb 9.1 L Hct 27.3 L MCV 90 MCH 30.2 MCHC 33.4 RDW 17.6 H Plt Count 261 Seg Neutrophils % 78.4 H Sodium 142.7 Potassium 4.2 Chloride 110 H Carbon Dioxide 16 L Anion Gap 17 BUN 109 H Creatinine 12.64 H Est GFR ( Amer) 5 L Glucose 110 Calcium 7.7 L Total Bilirubin 0.4 AST 17 Alkaline Phosphatase 75 Total Protein 6.0 L Albumin 3.5 Urine Color STRAW Urine Appearance CLEAR Urine pH 5.0 Ur Specific Smiley 1.011 Urine Protein >=500 H Urine Glucose (UA) 50 H Urine Ketones NEGATIVE Urine Blood SMALL H Urine Nitrite NEGATIVE Ur Leukocyte Esterase NEGATIVE Urine WBC (Auto) 1 Urine RBC (Auto) 0 04/23/20 01:38 Troponin I 0.123 NT-Pro-B Natriuret Pep 29423 H Impressions: Chest X-Ray 04/23/20 00:59 IMPRESSION: Cardiomegaly without acute pulmonary abnormalities. All labs, radiographs, diagnostic studies and EKGs were personally reviewed: Yes In addition, reports of radiographic and diagnostic studies were read: Yes Critical Time Critical Time (minutes): 60 -: The care of a critically ill patient is dynamic. This note represents a static moment in the admission process. Orders and treatments may be given simultaneously and urgently, and time is not field representatives director of the treatment process. This patient requires Critical Care secondary to life threatening organ or limb dysfunction. Without Critical Care services, the patient is at risk for increased mortality and morbidity.
[2020-04-23] MEDS ORDERED: HYDRALAZINE HCL 50 MG TABLET PO PRN (09:15)
[2020-04-23] MEDS: CLONIDINE HCL 0.1 MG TABLET PO SCH ×2 (09:55→21:21)
[2020-04-23] MEDS: NICARDIPINE HCL RTU, ISO-OS 20 MG/200 ML RTUINJ IV PRN ×5 (09:55→23:00)
[2020-04-23] MEDS: FUROSEMIDE INJ/PF 100 MG/10 ML SDV IV SCH ×2 (11:11→21:26)
[2020-04-23] MEDS: HYDRALAZINE HCL 50 MG TABLET PO SCH ×2 (11:12→17:11)
[2020-04-23] MEDS: SODIUM BICARBONATE 650 MG TABLET PO SCH ×2 (11:12→21:26)
--- NOTE | 2020-04-23 14:55 | PDOC CRITICAL CARE PROG REPORT ---
General Date:: 04/23/20 ICU Day:: 1 Hospital Day:: 1 Resuscitation Status: Full Code Events in the past 12 to 24 Hours:: HPI: Mr. Jeremy Quinonez is a 40-year-old male with past medical history of CHF, hypertension, obstructive sleep apnea, and chronic kidney disease who presented to the ED with complaints of chest pain, swelling of the lower extremities, and shortness of breath that has been ongoing and worsening in the past week. According to the patient he has run out of hydralazine and lisinopril about 1 month ago as well as amlodipine 2 weeks ago. He states his chest pain is more of a pressure and it is nonradiating nothing makes it better or worse. He states he has been fatigued for the past week. Denies any fever, chills, dwain sea, vomiting, headache, or dizziness. Labs were sent in the ED his BUN and is 109, creatinine 12.64, calcium 7.7, pro BNP 24,700, troponin 0 0.123. UA negative. Chest x-ray shows pulmonary edema. Even a total of 120 mg Lasix in the ED. Dr. Fajardo equipment coordinator was consulted and will see him. He is admitted to the ICU for further management of CHF and acute renal failure. 04/23 2:36 The patient appears comfortable . His Bp has come down >30 points. He is on Cardena infusion. He has been started on hYdralazine and clonidine. The equipment coordinator wants to try a diuretic regmen at thsi point,'She placed him on Lasix 80 mg q12h. [place] [address] ccc today thuis far.CXR did not show gross congestiuve changes, His peak trop is o.123. His EKG shows no acute ischemic appearing changes. The patient denies chest pain currentl. the patient had an ECHO the results of which are pending Reason for ICU Addmission:: CHF,ARF Physical Exam Vital Signs: Temp Pulse Resp BP Pulse Ox 98.8 F 83 17 153/93 H 98 04/23/20 10:37 04/23/20 12:00 04/23/20 12:00 04/23/20 12:00 04/23/20 12:00 Intake & Output 04/22/20 04/23/20 04/24/20 06:59 06:59 06:59 Intake Total 200 550 Output Total 450 1400 Balance -250 -850 Weight 124.3 kg 122 kg Weight/Height Weight 122 kg Height 5 ft 9 in General appearance: PRESENT: mild distress Head exam: PRESENT: atraumatic, normocephalic Mouth exam: PRESENT: moist, neck supple Neck exam: PRESENT: full ROM. ABSENT: meningismus, tenderness, thyromegaly Respiratory exam: PRESENT: clear to auscultation ban. ABSENT: prolonged expiratory phas Cardiovascular exam: PRESENT: RRR, +S1, +S2 Pulses: PRESENT: +1 pedal pulses bilateral GI/Abdominal exam: PRESENT: normal bowel sounds, soft Rectal exam: PRESENT: deferred Extremities exam: ABSENT: calf tenderness, clubbing, joint swelling Neurological exam: PRESENT: alert, oriented to person, oriented to place, oriented to time, oriented to situation, normal gait Psychiatric exam: PRESENT: appropriate affect Laboratory/Radiographs Laboratory Results: 04/23/20 01:38 04/23/20 01:38 04/23/20 04/23/20 04/23/20 01:38 01:38 02:24 WBC 10.0 RBC 3.03 L Hgb 9.1 L Hct 27.3 L MCV 90 MCH 30.2 MCHC 33.4 RDW 17.6 H Plt Count 261 Seg Neutrophils % 78.4 H Sodium 142.7 Potassium 4.2 Chloride 110 H Carbon Dioxide 16 L Anion Gap 17 BUN 109 H Creatinine 12.64 H Est GFR ( Amer) 5 L Glucose 110 Calcium 7.7 L Total Bilirubin 0.4 AST 17 Alkaline Phosphatase 75 Total Protein 6.0 L Albumin 3.5 Urine Color STRAW Urine Appearance CLEAR Urine pH 5.0 Ur Specific Enigma 1.011 Urine Protein >=500 H Urine Glucose (UA) 50 H Urine Ketones NEGATIVE Urine Blood SMALL H Urine Nitrite NEGATIVE Ur Leukocyte Esterase NEGATIVE Urine WBC (Auto) 1 Urine RBC (Auto) 0 04/23/20 04/23/20 01:38 11:30 Troponin I 0.123 0.108 NT-Pro-B Natriuret Pep [id number] H Impressions: Chest X-Ray 04/23/20 00:59 IMPRESSION: Cardiomegaly without acute pulmonary abnormalities. Assessment and Plan - Diagnosis (1) Acute on chronic kidney failure Is this a current diagnosis for this admission?: Yes Plan: The patient was running a creatinine of 7 mnths ago but it is syuddenly up to 1 2. Ther eis no imminnent need for dialysis as K is ok, the patient is not terriblky volume overloaded nor uremic. (2) Hypertensive emergency Is this a current diagnosis for this admission?: Yes Plan: The patient placed on hydralazine, clonidine and IV lasix. He remains at present on a a Jeny infusuio as well.l It appears that hsi mean bp has responded and he is overall feeling better. No further chest pain nor sob. (3) Swelling of lower extremity Is this a current diagnosis for this admission?: Yes Plan: One of patient's complaints on presention was increasing leg edema over the past few weeks. a few week (4) Obstructive sleep apnea Is this a current diagnosis for this admission?: Yes Plan: The patient uses BIPAPO at home which we can substitute here. Critical Time Critical Time (minutes): 20 Level of Care: ICU -: 1. The care of a critical patient is a dynamic process. This note is a sales representative adding machines synopsis but static in nature. The timeframe for treatments given in order is not necessarily the actual time these treatments may have been done. 2. This patient requires critical care secondary to ongoing requirements for therapy not offered or safe outside the critical care environment. Transfer to a lower level of care will result in altered life or limb morbidity and morta lity. 3. Multidisciplinary rounds completed. 4. ABCDE bundle addressed.
[2020-04-23 16:52] LABS: ANION GAP 13 (5-19); BLOOD UREA NITROGEN 110 mg/dL (7-20); CALCIUM 7.5 mg/dL (8.4-10.2); CARBON DIOXIDE 16 mmol/L (22-30); CHLORIDE 112 mmol/L (98-107); GLUCOSE 98 mg/dL (75-110)
--- NOTE | 2020-04-23 18:42 | RADIOLOGY REPORT (SQ) ---
EXAM DESCRIPTION: U/S RETROPERITON (RENAL/AORTA) IMAGES COMPLETED DATE/TIME: 04/23/2020 6:23 pm REASON FOR STUDY: KATIE/CKD COMPARISON: CT abdomen pelvis 04/11/2017 TECHNIQUE: Dynamic and static grayscale images acquired of the kidneys and bladder and recorded on P ACS. Additional selected color Doppler and spectral images recorded. LIMITATIONS: None. FINDINGS: RIGHT KIDNEY: Small, 9 cm in length. Diffuse cortical thinning and increased echogenicity . No hydronephrosis, cysts, stones, or masses. LEFT KIDNEY: Small, 9 cm in length. Diffuse cortical thinning and increased echogenicity. No hydro nephrosis, cysts, stones, or masses. BLADDER: Decompressed, not well seen OTHER FINDINGS: No other significant finding. IMPRESSION: Small echogenic kidneys bilaterally No hydronephrosis TECHNICAL DOCUMENTATION: JOB ID: [id number] 2010 [employer]- All Rights Reserved Reading location - IP/workstation name: [email or web address]
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
[2020-04-23] MEDS ORDERED: ALPRAZOLAM 0.5 MG TABLET PO ONE (21:13)
--- NOTE | 2020-04-23 21:27 | EKG REPORT ---
SEVERITY:- ABNORMAL ECG - SINUS RHYTHM BORDERLINE T WAVE ABNORMALITIES PROLONGED QT INTERVAL : Confirmed by: Jordana Krishnan MD 23-Apr-2020 21:26:57
[2020-04-24 00:07] LABS: URINE CREATININE 70.3 mg/dL (22-328)
[2020-04-24 00:29] LABS: UR PRO/CREAT RATIO RESULT 11.1 mg/mg (0.0-0.2); URINE PROTEIN 780.9 mg/dL (<12)
[2020-04-24] MEDS: HYDRALAZINE HCL 50 MG TABLET PO SCH ×4 (00:43→17:14)
[2020-04-24] MEDS: NICARDIPINE HCL RTU, ISO-OS 20 MG/200 ML RTUINJ IV PRN ×2 (02:11→08:16)
[2020-04-24] MEDS: HEPARIN SOD (PORCINE) 5,000 UNIT/ML 1 ML VIAL SUBCUT SCH ×3 (05:28→21:29)
[2020-04-24 06:30] LABS: ABSOLUTE BASOPHILS # (AUTO) 0.1 10^3/uL (0.0-0.2); ABSOLUTE EOSINOPHILS # (AUTO) 0.3 10^3/uL (0.0-0.6); ABSOLUTE LYMPHOCYTES (AUTO) 0.7 10^3/uL (0.5-4.7); ABSOLUTE MONOCYTES (AUTO) 0.6 10^3/uL (0.1-1.4); ABSOLUTE NEUT (AUTO) 6.4 10^3/uL (1.7-8.2); ABSOLUTE RETICS # 0.087 10^6/uL (0.028-0.122); BASOPHILS % (AUTO) 0.8 % (0-2); EOSINOPHILS % (AUTO) 3.5 % (0-6); HEMATOCRIT 23.9 % (37.9-51.0); HEMOGLOBIN 8.2 g/dL (13.5-17.0); MEAN CORPUSCULAR HEMOGLOBIN 31.4 pg (27.0-33.4); MEAN CORPUSCULAR HGB CONC 34.5 g/dL (32.0-36.0); MEAN CORPUSCULAR VOLUME 91 fl (80-97); MONOCYTES % (AUTO) 6.9 % (3-13); PLATELET COUNT 246 10^3/uL (150-450); RED BLOOD COUNT 2.62 10^6/uL (4.35-5.55); RETICULOCYTE COUNT (AUTO) 3.32 % (0.66-2.85); SEGMENTED NEUTROPHILS % (AUTO) 79.8 % (42-78); TOTAL CELLS COUNTED % (AUTO) 100 %
[2020-04-24 06:35] LABS: INTERNATIONAL RATION (INR) 0.98; PROTHROMBIN TIME 13.2 SEC (11.4-15.4)
[2020-04-24 06:46] LABS: ALBUMIN 3.2 g/dL (3.5-5.0); ALKALINE PHOSPHATASE 60 U/L (38-126); ANION GAP 14 (5-19); ASPARTATE AMINO TRANSFERASE 11 U/L (17-59); BILIRUBIN,DIRECT 0.3 mg/dL (0.0-0.4); BILIRUBIN,TOTAL 0.3 mg/dL (0.2-1.3); BLOOD UREA NITROGEN 102 mg/dL (7-20); CALCIUM 7.3 mg/dL (8.4-10.2); CARBON DIOXIDE 15 mmol/L (22-30); CHLORIDE 113 mmol/L (98-107); CHOLESTEROL 209.77 mg/dL (0-200); GLUCOSE 127 mg/dL (75-110); IRON(TIBC) 65.4 ug/dL (49-181); PHOSPHORUS 9.1 mg/dL (2.5-4.5); POTASSIUM 3.7 mmol/L (3.6-5.0); TOTAL PROTEIN 5.6 g/dL (6.3-8.2); TRIGLYCERIDES 179 mg/dL (<150)
[2020-04-24 06:57] LABS: DIRECT LDL 134 mg/dL (<100)
--- NOTE | 2020-04-24 07:35 | RADIOLOGY REPORT (SQ) ---
EXAM DESCRIPTION: CHEST SINGLE VIEW IMAGES COMPLETED DATE/TIME: 04/24/2020 6:16 am REASON FOR STUDY: CHF COMPARISON: Chest films 04/23/2020, 07/24/2019, 01/18/2019 EXAM PARAMETERS: NUMBER OF VIEWS: One view. TECHNIQUE: Single frontal radiographic view of the chest acquired. RADIATION DOSE: NA LIMITATIONS: None. FINDINGS: LUNGS AND PLEURA: No opacities, masses or pneumothorax. No pleural effusion. MEDIASTINUM AND HILAR STRUCTURES: No masses. Contour normal. HEART AND VASCULAR STRUCTURES: Borderline cardiomegaly. No pulmonary vascular congestion BONES: No acute findings. HARDWARE: None in the chest. OTHER: No other significant finding. IMPRESSION: Borderline cardiomegaly. No acute infiltrates TECHNICAL DOCUMENTATION: JOB ID: [id number] 2010 [employer]- All Rights Reserved Reading location - IP/workstation name: [id number]
[2020-04-24 07:56] LABS: VLDL CHOLESTEROL 35.8 mg/dL (10-31)
[2020-04-24] MEDS: FUROSEMIDE INJ/PF 100 MG/10 ML SDV IV SCH (09:11)
[2020-04-24] MEDS: CLONIDINE HCL 0.1 MG TABLET PO SCH (09:12)
[2020-04-24] MEDS: SODIUM BICARBONATE 650 MG TABLET PO SCH ×2 (09:13→21:28)
[2020-04-24] MEDS ORDERED: LISINOPRIL 10 MG TABLET PO SCH (10:00)
--- NOTE | 2020-04-24 10:12 | PDOC CRITICAL CARE PROG REPORT ---
General Date:: 04/24/20 ICU Day:: 2 Hospital Day:: 2 Resuscitation Status: Full Code Events in the past 12 to 24 Hours:: HPI: Mr. Jeremy Quinonez is a 40-year-old male with past medical history of CHF, hypertension, obstructive sleep apnea, and chronic kidney disease who presented to the ED with complaints of chest pain, swelling of the lower extremities, and shortness of breath that has been ongoing and worsening in the past week. According to the patient he has run out of hydralazine and lisinopril about 1 month ago as well as amlodipine 2 weeks ago. He states his chest pain is more of a pressure and it is nonradiating nothing makes it better or worse. He states he has been fatigued for the past week. Denies any fever, chills, [place]ain sea, vomiting, headache, or dizziness. Labs were sent in the ED his BUN and is 109, creatinine 12.64, calcium 7.7, pro BNP 24,700, troponin 0 0.123. UA negative. Chest x-ray shows pulmonary edema. Even a total of 120 mg Lasix in the ED. Dr. Fajardo sole cutter was consulted and will see him. He is admitted to the ICU for further management of CHF and acute renal failure. 04/23 2:36 The patient appears comfortable . His Bp has come down >30 points. He is on Cardena infusion. He has been started on hYdralazine and clonidine. The sole cutter wants to try a diuretic regmen at thsi point,'She placed him on Lasix 80 mg q12h. [place] [address] ccc today thuis far.CXR did not show gross congestive changes, His peak trop is o.123. His EKG shows no acute ischemic appearing changes. The patient denies chest pain currentl. the patient had an ECHO the results of which are pending. 04/24 The patient is comfortble. No major compalints. No neurolgical deficits. Speech is clear. Latest BP is about 170/111. I ahve added back Lisionpril to his regimen. He remains on raymno drip of 5 Mg/hr. Will try to weant hat off. His highest trop has been 0.120. MARTY rodrigues awiting the formal report re his ECHO. Will likely move out to the regualr floor Reason for ICU Addmission:: CHF,ARF Physical Exam Vital Signs: Temp Pulse Resp BP Pulse Ox 98.0 F 85 17 171/111 H 99 04/24/20 08:00 04/24/20 08:00 04/24/20 08:00 04/24/20 08:00 04/24/20 08:00 Intake & Output 04/23/20 04/24/20 04/25/20 06:59 06:59 06:59 Intake Total 200 1540 155 Output Total 450 3850 400 Balance -250 -2310 -245 Weight 124.3 kg 123 kg Weight/Height Weight 123 kg Height 5 ft 9 in General appearance: PRESENT: no acute distress, obese Ear exam: PRESENT: normal external ear exam Mouth exam: PRESENT: moist Neck exam: ABSENT: lymphadenopathy, thyromegaly, tracheal deviation Respiratory exam: PRESENT: unlabored. ABSENT: accessory muscle use Cardiovascular exam: PRESENT: RRR Pulses: PRESENT: normal carotid pulses, normal radial pulses Rectal exam: PRESENT: deferred Extremities exam: ABSENT: calf tenderness, clubbing, joint swelling, pedal edema Neurological exam: PRESENT: altered, awake, oriented to person, oriented to place, oriented to time Psychiatric exam: PRESENT: appropriate affect Laboratory/Radiographs Laboratory Results: 04/24/20 06:10 04/24/20 06:10 04/23/20 04/24/20 04/24/20 16:20 06:10 06:10 WBC 8.0 RBC 2.62 L Hgb 8.2 L Hct 23.9 L MCV 91 MCH 31.4 MCHC 34.5 RDW 18.0 H Plt Count 246 Seg Neutrophils % 79.8 H Retic Count (auto) 3.32 H Sodium 140.6 141.9 Potassium 4.0 3.7 Chloride 112 H 113 H Carbon Dioxide 16 L 15 L Anion Gap 13 14 BUN 110 H 102 H Creatinine 12.06 H 12.83 H Est GFR ( Amer) 6 L 5 L Glucose 98 127 H Calcium 7.5 L 7.3 L Phosphorus 9.1 H Magnesium 2.2 Iron 65.4 TIBC 279 % Saturation 23 Ferritin 188.00 Total Bilirubin 0.3 AST 11 L Alkaline Phosphatase 60 Total Protein 5.6 L Albumin 3.2 L Triglycerides 179 H Cholesterol 209.77 H LDL Cholesterol Direct 134 H VLDL Cholesterol 35.8 H HDL Cholesterol 38 L Vitamin B12 325.0 Folate 6.50 PTH Intact 04/24/20 06:10 WBC RBC Hgb Hct MCV MCH MCHC RDW Plt Count Seg Neutrophils % Retic Count (auto) Sodium Potassium Chloride Carbon Dioxide Anion Gap BUN Creatinine Est GFR ( Amer) Glucose Calcium Phosphorus Magnesium Iron TIBC % Saturation Ferritin Total Bilirubin AST Alkaline Phosphatase Total Protein Albumin Triglycerides Cholesterol LDL Cholesterol Direct VLDL Cholesterol HDL Cholesterol Vitamin B12 Folate PTH Intact 662.3 H 04/23/20 04/23/20 01:38 11:30 Troponin I 0.123 0.108 NT-Pro-B Natriuret Pep 66476 H Impressions: Renal Ultrasound 04/23/20 00:00 IMPRESSION: Small echogenic kidneys bilaterally No hydronephrosis Chest X-Ray 04/24/20 06:00 IMPRESSION: Borderline cardiomegaly. No acute infiltrates Assessment and Plan - Diagnosis (1) Acute on chronic kidney failure Is this a current diagnosis for this admission?: Yes Plan: The patient was running a creatinine of 7 mnths ago but it is syuddenly up to 12. Ther is no imminnent need for dialysis as K is ok, the patient is not terriblky volume overloaded nor uremic. 04/24 His creatinine is even up a tad. It is close to 13. This was after a fairly massive output yesterday of 3850 ccs. At this point the patient does not appear to be grosslly uremic however. His potassium remains under 4. His serum bicarb is a little low at at 15. It appears likely that if thepatient doen't diureses soon he will likely need dialysis. Can add po bicarb in the interim (2) Hypertensive emergency Is this a current diagnosis for this admission?: Yes Plan: The patient placed on hydralazine, clonidine and IV lasix. He remains at present on a a Raymon infusuio as well.l It appears that hsi mean bp has responded and he is overall feeling better. No further chest pain nor sob. 04/24 His Bp is certainly better. Howver, we are adding med sas his bbp i s still elevated and he is still requiring parenteral agents. I have just added some . (3) Swelling of lower extremity Is this a current diagnosis for this admission?: Yes Plan: One of patient's complaints on presention was increasing leg edema over the past few weeks. a few week (4) Obstructive sleep apnea Is this a current diagnosis for this admission?: Yes Plan: The patient uses BIPAPO at home which we can substitute here. Critical Time Critical Time (minutes): 25 Level of Care: ICU -: 1. The care of a critical patient is a dynamic process. This note is a insurance sales representative synopsis but static in nature. The timeframe for treatments given in order is not necessarily the actual time these treatments may have been done. 2. This patient requires critical care secondary to ongoing requirements for therapy not offered or safe outside the critical care environment. Transfer to a lower level of care will result in altered life or limb morbidity and mortality. 3. Multidisciplinary rounds completed. 4. ABCDE bundle addressed.
--- NOTE | 2020-04-24 10:36 | XCELERA REPORT ---
[address] [address] Transthoracic Echocardiogram Report Name: RACHEL PHELPS Age: 40 yrs Gender: Male : 1980 Patient Status: Inpatient Patient Location: ICU^609^A Study Date: 04/23/2020 10:28 AM Height: 69 in Weight: 274 lb BSA: 2.4 m2 Procedure: A two-dimensional transthoracic echocardiogram with color flow and Doppler was performed. The study was technically difficult with many images being suboptimal in quality. Reason For Study: CHF History: CHF. Ordering Physician: BERNARD CONDON Performed By: Swapnil Read Interpretation Summary The left ventricle is normal in size. There is normal left ventricular wall thickness. LV EF is 70% Left ventricular systolic function is normal. Doppler measurements suggest normal left ventricular diastolic function The left ventricular wall motion is normal. There is no thrombus. nO asd,vsd,OR pfo SEEN. The right ventricle is normal in size and function. The right atrium is normal. The left atrial size is normal. There is no evidence of mitral valve prolapse. There is no vegetation seen on the mitral valve. There is no mitral valve stenosis. There is a trace amount of mitral regurgitation There is no aortic valvular vegetation. There is mild aortic stenosis There is a peak gradient of 19.2 mm of Hg. There is no LVOT obstruction. No hemodynamically significant valvular aortic stenosis. No aortic regurgitation is present. There is no tricuspid stenosis. There is a trace amount of tricuspid regurgitation Tricuspid regurgitation jet envelope not well defined to measure RV systolic pressure accurately. There is no pulmonic valvular stenosis. There is no pulmonic valvular regurgitation. The aortic root is normal size. The inferior vena cava appeared normal and decreased > 50% with respiration (RAP 5-10 mmHg) There is no pericardial effusion. MMode/2D Measurements & Calculations RVDd: 3.7 cm LVIDd: 6.1 cm FS: 42.2 % Ao root diam: 3.7 cm IVSd: 0.81 cm LVIDs: 3.5 cm EDV(Teich): 190.1 ml Ao root area: 10.7 cm2 LVPWd: 1.0 cm ESV(Teich): 52.6 ml LA dimension: 3.8 cm EF(Teich): 72.3 % Doppler Measurements & Calculations MV E max neo: MV P1/2t max neo: Ao V2 max: LV V1 max P.3 cm/sec 138.5 cm/sec 219.1 cm/sec 8.4 mmHg MV A max neo: MV P1/2t: 76.2 msec Ao max PG: LV V1 max: 114.1 cm/sec MVA(P1/2t): 2.9 cm2 19.2 mmHg 145.3 cm/sec MV E/A: 1.2 MV dec slope: 532.0 cm/sec2 MV dec time: 0.20 sec PA V2 max: MV P1/2t-pr_phl: 122.8 cm/sec 76.2 msec PA max P.0 mmHg Left Ventricle The left ventricle is normal in size. There is normal left ventricular wall thickness. LV EF is 70%. Left ventricular systolic function is normal. Doppler measurements suggest normal left ventricular diastolic function. The left ventricular wall motion is normal. There is no thrombus. nO asd,vsd,OR pfo SEEN. Right Ventricle The right ventricle is normal in size and function. Atria The right atrium is normal. The left atrial size is normal. Mitral Valve There is no evidence of mitral valve prolapse. There is no vegetation seen on the mitral valve. There is no mitral valve stenosis. There is a trace amount of mitral regurgitation. Aortic Valve There is no aortic valvular vegetation. There is mild aortic stenosis. There is a peak gradient of 19.2 mm of Hg. There is no LVOT obstruction. No hemodynamically significant valvular aortic stenosis. No aortic regurgitation is present. Tricuspid Valve There is no tricuspid stenosis. There is a trace amount of tricuspid regurgitation. Tricuspid regurgitation jet envelope not well defined to measure RV systolic pressure accurately. Pulmonic Valve There is no pulmonic valvular stenosis. There is no pulmonic valvular regurgitation. Great Vessels The aortic root is normal size. The inferior vena cava appeared normal and decreased > 50% with respiration (RAP 5-10 mmHg). Effusions There is no pericardial effusion. : BERNARD CONDON Lakshmi
[2020-04-24] MEDS ORDERED: METOLAZONE 2.5 MG TABLET PO ONE (12:08)
[2020-04-24] MEDS: HYDRALAZINE HCL INJ/PF 20 MG/1 ML SDV ONE ×2 (14:58→15:00)
[2020-04-24] MEDS ORDERED: HYDRALAZINE HCL INJ/PF 20 MG/1 ML SDV IV PRN (15:05)
[2020-04-24] MEDS: PANTOPRAZOLE SODIUM 40 MG TABLET.DR PO SCH (17:14)
[2020-04-24] MEDS: SEVELAMER HCL 800 MG TABLET PO SCH (17:14)
[2020-04-24] MEDS: FUROSEMIDE 80 MG TABLET PO SCH (17:15)
[2020-04-24] MEDS ORDERED: LABETALOL HCL INJ 20 MG/4 ML DISP.SYRIN IV PRN (18:10)
[2020-04-24] MEDS ORDERED: AMLODIPINE BESYLATE 10 MG TABLET PO ONE (18:22)
[2020-04-24] MEDS: CLONIDINE HCL 0.2 MG TABLET PO SCH (21:28)
[2020-04-24] MEDS: CARVEDILOL 6.25 MG TABLET PO SCH (21:29)
[2020-04-24] MEDS: HYDRALAZINE HCL INJ/PF 20 MG/1 ML SDV IV PRN (21:30)
[2020-04-25] MEDS: HYDRALAZINE HCL 50 MG TABLET PO SCH ×5 (06:13→17:51)
[2020-04-25] MEDS: PANTOPRAZOLE SODIUM 40 MG TABLET.DR PO SCH ×2 (06:14→17:52)
[2020-04-25] MEDS: HEPARIN SOD (PORCINE) 5,000 UNIT/ML 1 ML VIAL SUBCUT SCH ×2 (06:15→14:45)
[2020-04-25 06:27] LABS: ABSOLUTE BASOPHILS # (AUTO) 0.1 10^3/uL (0.0-0.2); ABSOLUTE EOSINOPHILS # (AUTO) 0.3 10^3/uL (0.0-0.6); ABSOLUTE LYMPHOCYTES (AUTO) 0.7 10^3/uL (0.5-4.7); ABSOLUTE MONOCYTES (AUTO) 0.7 10^3/uL (0.1-1.4); ABSOLUTE NEUT (AUTO) 5.4 10^3/uL (1.7-8.2); BASOPHILS % (AUTO) 0.9 % (0-2); EOSINOPHILS % (AUTO) 4.3 % (0-6); LYMPHOCYTES % (AUTO) 10.2 % (13-45); MEAN CORPUSCULAR HEMOGLOBIN 30.2 pg (27.0-33.4); MEAN CORPUSCULAR HGB CONC 33.3 g/dL (32.0-36.0); MEAN CORPUSCULAR VOLUME 91 fl (80-97); MONOCYTES % (AUTO) 9.2 % (3-13); PLATELET COUNT 238 10^3/uL (150-450); RED BLOOD COUNT 2.54 10^6/uL (4.35-5.55); RED CELL DISTRIBUTION WIDTH 17.6 % (11.5-14.0); SEGMENTED NEUTROPHILS % (AUTO) 75.4 % (42-78); TOTAL CELLS COUNTED % (AUTO) 100 %; WHITE BLOOD COUNT 7.2 10^3/uL (4.0-10.5)
[2020-04-25 06:45] LABS: HEMOGLOBIN 7.7 g/dL (13.5-17.0)
[2020-04-25 06:51] LABS: ANION GAP 13 (5-19); BLOOD UREA NITROGEN 101 mg/dL (7-20); CALCIUM 7.3 mg/dL (8.4-10.2); CARBON DIOXIDE 16 mmol/L (22-30); CHLORIDE 109 mmol/L (98-107); GLUCOSE 120 mg/dL (75-110); PHOSPHORUS 9.5 mg/dL (2.5-4.5); POTASSIUM 3.9 mmol/L (3.6-5.0)
[2020-04-25 07:37] LABS: HEPATITS B SURFACE ANTIGEN Negative (Negative)
--- NOTE | 2020-04-25 08:01 | RADIOLOGY REPORT (SQ) ---
EXAM DESCRIPTION: CHEST SINGLE VIEW IMAGES COMPLETED DATE/TIME: 04/25/2020 7:20 am REASON FOR STUDY: CHF COMPARISON: AP chest 04/24/2020, 04/23/2020, 07/24/2019 EXAM PARAMETERS: NUMBER OF VIEWS: One view. TECHNIQUE: Single frontal radiographic view of the chest acquired. RADIATION DOSE: NA LIMITATIONS: None. FINDINGS: LUNGS AND PLEURA: Minimal left basilar atelectasis. MEDIASTINUM AND HILAR STRUCTURES: No masses. Contour normal. HEART AND VASCULAR STRUCTURES: Stable borderline cardiomegaly BONES: No acute findings. HARDWARE: None in the chest. OTHER: No other significant finding. IMPRESSION: Minimal left basilar atelectasis TECHNICAL DOCUMENTATION: JOB ID: [id number] 2010 [email or web address]- All Rights Reserved Reading location - IP/workstation name: [id number]
--- NOTE | 2020-04-25 08:45 | PDOC PROGRESS REPORT ---
Subjective Progress Note for:: 04/25/20 Subjective:: 40-year-old male with past medical history of CHF, hypertension, obstructive sleep apnea, and chronic kidney disease who presented to the ED with complaints of chest pain, swelling of the lower extremities, and shortness of breath that has been ongoing and worsening in the past week. According to the patient he has run out of hydralazine and lisinopril about 1 month ago as well as amlodipine 2 weeks ago. He states his chest pain is more of a pressure and it is nonradiating nothing makes it better or worse. He states he has been fatigued for the past week. Denies any fever, chills, nausea, vomiting, headache, or dizziness. Labs were sent in the ED his BUN and is 109, creatinine 12.64, calcium 7.7, pro BNP 24,700, troponin 0 0.123. UA negative. Chest x-ray shows pulmonary edema. Even a total of 120 mg Lasix in the ED. Dr. Fajardo clinical marketing manager was consulted and will see him. He is admitted to the ICU for further management of CHF and acute renal failure. 04/25/2020 patient was downgraded from ICU to IMCU yesterday. Patient has history of congestive heart failure, hypertension, obstructive sleep apnea, end- stage renal disease. Blood pressure this morning is 145/90. He is on multiple blood pressure medications. Blood pressures are fluctuating. Nephrology consult was done plan is to arrange for dialysis tomorrow. Reason For Visit: HYPERTENSIVE EMERGENCY Physical Exam Vital Signs: Temp Pulse Resp BP Pulse Ox 97.6 F 66 16 146/94 H 100 04/25/20 07:42 04/25/20 08:00 04/25/20 07:42 04/25/20 07:42 04/25/20 07:42 Intake & Output 04/24/20 04/25/20 04/26/20 06:59 06:59 06:59 Intake Total 1540 804 Output Total 3850 2175 Balance -2310 -1371 Weight 123 kg 122.6 kg General appearance: PRESENT: no acute distress, morbidly obese Head exam: PRESENT: atraumatic Eye exam: PRESENT: PERRLA Ear exam: PRESENT: bleeding Mouth exam: PRESENT: neck supple Teeth exam: PRESENT: poor dentation Neck exam: ABSENT: carotid bruit, JVD, lymphadenopathy, thyromegaly Respiratory exam: PRESENT: decreased breath sounds Cardiovascular exam: PRESENT: RRR. ABSENT: diastolic murmur, rubs, systolic murmur GI/Abdominal exam: PRESENT: normal bowel sounds, soft. ABSENT: distended, guarding, mass, organolmegaly, rebound, tenderness Rectal exam: PRESENT: deferred Extremities exam: PRESENT: full ROM. ABSENT: calf tenderness, clubbing, pedal edema Neurological exam: PRESENT: alert, awake, oriented to person, oriented to place, oriented to time, oriented to situation, CN II-XII grossly intact. ABSENT: motor sensory deficit Psychiatric exam: PRESENT: appropriate affect, normal mood. ABSENT: homicidal ideation, suicidal ideation Results Laboratory Results: 04/25/20 05:27 04/25/20 05:27 04/25/20 04/25/20 04/25/20 05:27 05:27 05:27 WBC 7.2 RBC 2.54 L Hgb 7.7 L Hct 23.0 L MCV 91 MCH 30.2 MCHC 33.3 RDW 17.6 H Plt Count 238 Seg Neutrophils % 75.4 Sodium 137.6 Potassium 3.9 Chloride 109 H Carbon Dioxide 16 L Anion Gap 13 BUN 101 H Creatinine 12.58 H Est GFR ( Amer) 5 L Glucose 120 H Calcium 7.3 L Phosphorus 9.5 H Magnesium 2.1 04/23/20 04/23/20 04/24/20 01:38 11:30 08:52 Troponin I 0.123 0.108 0.120 NT-Pro-B Natriuret Pep 95208 H Impressions: Renal Ultrasound 04/23/20 00:00 IMPRESSION: Small echogenic kidneys bilaterally No hydronephrosis Chest X-Ray 04/25/20 06:00 IMPRESSION: Minimal left basilar atelectasis Assessment and Plan - Diagnosis (1) Acute kidney failure Qualifiers: Acute renal failure type: unspecified Qualified Code(s): N17.9 - Acute kidney failure, unspecified Is this a current diagnosis for this admission?: Yes Plan: 04/25/2020-patient admitted with acute on chronic kidney injury. Creatinine today is 12.55. Nephrology consult was done. Plan is to dialyze him tomorrow. Potassium is 3.4. Negative fluid balance of 1.3 L in the last 24 hours. (2) Hypertensive emergency Is this a current diagnosis for this admission?: Yes Plan: The patient placed on hydralazine, clonidine and IV lasix. He remains at present on a a Jeny infusuio as well.l It appears that hsi mean bp has responded and he is overall feeling better. No further chest pain nor sob. 04/24 His Bp is certainly better. Howver, we are adding med sas his bbp i s still elevated and he is still requiring parenteral agents. I have just added some . 04/25/20-blood pressure this morning is 145/90. Patient is on Lasix 80 mg p.o. twice daily, Coreg 25 mg p.o. twice daily, lisinopril 10 mg every 12 hours, hydralazine 100 mg every 6 hours, hydralazine 20 mg IV every 6 as needed, labetalol IV every 6 as needed. Patient is on low-salt diet. (3) Anemia in chronic kidney disease (CKD) Is this a current diagnosis for this admission?: No Plan: 04/25/2020-patient hemoglobin is 7.7. Most likely secondary to anemia of chronic kidney disease. Further management as per nephrology. (4) Metabolic acidosis Is this a current diagnosis for this admission?: Yes Plan: 04/25/2020-serum bicarb is 16. Metabolic acidosis most likely secondary to kidney failure. Patient receiving sodium bicarb 1300 mg p.o. twice daily. (5) CHF (congestive heart failure) Qualifiers: Heart failure chronicity: acute on chronic Is this a current diagnosis for this admission?: No Plan: Echocardiogram was done EF is 70%. No evidence of any systolic or diastolic heart failure present..fluid Overload mostly secondary to renal failure. (6) Obesity (BMI 30-39.9) Is this a current diagnosis for this admission?: No Plan: 04/25/2020-patient BMI is more than 39. Diet exercise weight loss lifestyle modifications discussed with the patient. - Time Anticipated Discharge Disposition: Home, Self Care Anticipated Discharge Timeframe: within 72 hours
[2020-04-25] MEDS: ALPRAZOLAM 0.5 MG TABLET PO PRN ×2 (08:48→17:51)
[2020-04-25] MEDS: SEVELAMER HCL 800 MG TABLET PO SCH ×3 (08:48→17:51)
[2020-04-25] MEDS ORDERED: ASPIRIN 81 MG TABLET, ENT COATED PO SCH (10:00)
[2020-04-25] MEDS: CLONIDINE HCL 0.2 MG TABLET PO SCH ×2 (10:13→21:38)
[2020-04-25] MEDS: FUROSEMIDE 80 MG TABLET PO SCH ×2 (10:13→17:52)
[2020-04-25] MEDS: CARVEDILOL 6.25 MG TABLET PO SCH ×2 (10:13→21:37)
[2020-04-25] MEDS: SODIUM BICARBONATE 650 MG TABLET PO SCH ×2 (10:14→21:37)
[2020-04-25] MEDS: LISINOPRIL 10 MG TABLET PO SCH (10:14)
[2020-04-25 11:46] LABS: HEPATITIS B CORE AB TOT Negative (Negative)
[2020-04-25] MEDS ORDERED: TUBERCULIN,PURIF.PROT.DERIV. 5 TU/0.1 ML TEST 1 ML VIAL ID ONE (17:00)
[2020-04-25] MEDS ORDERED: DEXTROSE 40% GEL 15 GM TUBE PO PRN ×2 (18:20)
[2020-04-25] MEDS ORDERED: GLUCAGON,HUMAN RECOMB 1 MG INJ SUBCUT PRN (18:20)
[2020-04-25] MEDS ORDERED: DEXTROSE 50%-WATER 25 GM/50 ML DISP.SYRIN IV PRN ×2 (18:20)
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
[2020-04-26] MEDS ORDERED: HEPARIN SOD (PORCINE) 1,000 UNIT/ML 10 ML VIAL IV PRN (05:00)
[2020-04-26] MEDS ORDERED: EPOETIN ALFA-EPBX 30,000 UNIT in SYRINGE, DISPOSABLE, 1 EACH IV PRN (05:00)
[2020-04-26] MEDS ORDERED: NORMAL SALINE 1000 ML 1,000 ML IV PRN (05:00)
[2020-04-26 05:38] LABS: ABSOLUTE BASOPHILS # (AUTO) 0.1 10^3/uL (0.0-0.2); ABSOLUTE EOSINOPHILS # (AUTO) 0.3 10^3/uL (0.0-0.6); ABSOLUTE LYMPHOCYTES (AUTO) 0.8 10^3/uL (0.5-4.7); ABSOLUTE MONOCYTES (AUTO) 0.8 10^3/uL (0.1-1.4); ABSOLUTE NEUT (AUTO) 5.1 10^3/uL (1.7-8.2); EOSINOPHILS % (AUTO) 4.4 % (0-6); HEMATOCRIT 23.7 % (37.9-51.0); MEAN CORPUSCULAR HEMOGLOBIN 30.7 pg (27.0-33.4); MEAN CORPUSCULAR HGB CONC 33.8 g/dL (32.0-36.0); MEAN CORPUSCULAR VOLUME 91 fl (80-97); MONOCYTES % (AUTO) 10.9 % (3-13); PLATELET COUNT 267 10^3/uL (150-450); RED BLOOD COUNT 2.61 10^6/uL (4.35-5.55); RED CELL DISTRIBUTION WIDTH 17.7 % (11.5-14.0); SEGMENTED NEUTROPHILS % (AUTO) 72.7 % (42-78); TOTAL CELLS COUNTED % (AUTO) 100 %
[2020-04-26] MEDS: HYDRALAZINE HCL 50 MG TABLET PO SCH ×5 (05:53→23:35)
[2020-04-26 06:03] LABS: ANION GAP 14 (5-19); BLOOD UREA NITROGEN 98 mg/dL (7-20); CALCIUM 7.7 mg/dL (8.4-10.2); CARBON DIOXIDE 18 mmol/L (22-30); CHLORIDE 107 mmol/L (98-107); GLUCOSE 101 mg/dL (75-110); POTASSIUM 4.1 mmol/L (3.6-5.0)
[2020-04-26 06:05] LABS: PHOSPHORUS 10.3 mg/dL (2.5-4.5)
[2020-04-26] MEDS: PANTOPRAZOLE SODIUM 40 MG TABLET.DR PO SCH ×2 (06:15→17:27)
--- NOTE | 2020-04-26 08:41 | RADIOLOGY REPORT (SQ) ---
EXAM DESCRIPTION: CHEST SINGLE VIEW IMAGES COMPLETED DATE/TIME: 04/26/2020 8:26 am REASON FOR STUDY: CHF COMPARISON: AP view of the chest from 04/25/2020. EXAM PARAMETERS: NUMBER OF VIEWS: One view. TECHNIQUE: An AP view of the chest was obtained. RADIATION DOSE: NA LIMITATIONS: None. FINDINGS: LUNGS AND PLEURA: No consolidation, pleural effusion or pneumothorax. MEDIASTINUM AND HILAR STRUCTURES: No mediastinal or hilar contour abnormality. HEART AND VASCULAR STRUCTURES: Stable borderline enlarged cardiac silhouette. BONES: No acute findings. HARDWARE: None in the chest. OTHER: No other finding. IMPRESSION: Unchanged radiographic appearance of the chest. TECHNICAL DOCUMENTATION: JOB ID: [id number] 2010 [employer]- All Rights Reserved Reading location - IP/workstation name: [email or web address]
[2020-04-26] MEDS ORDERED: CEFAZOLIN 1 GM/D5W RTU 1 GM/50 ML RTUPB IV PRN (09:35)
[2020-04-26] MEDS ORDERED: ONDANSETRON HCL INJ/PF 4 MG/2 ML SDV ONE (10:16)
[2020-04-26] MEDS ORDERED: PROPOFOL INJ 200 MG/20 ML VIAL IV ONE (10:16)
[2020-04-26] MEDS ORDERED: FENTANYL CITRATE INJ/PF 100 MCG/2 ML AMPUL ONE (10:16)
[2020-04-26] MEDS ORDERED: MIDAZOLAM 2 MG/2 ML INJ ONE (10:16)
[2020-04-26] MEDS ORDERED: LIDOCAINE 1% INJ-PF (10 MG/ML) 30 ML SDV ONE (10:24)
[2020-04-26] MEDS ORDERED: BUPIVACAINE HCL 0.25 % INJ/PF (2.5 MG/1 ML) 30 ML VIAL ONE (10:24)
[2020-04-26] MEDS ORDERED: CEFAZOLIN 2 GM/D5W RTU 2 GM/50 ML RTUPB IV ONE (10:30)
[2020-04-26] MEDS ORDERED: FENTANYL CITRATE INJ/PF 100 MCG/2 ML AMPUL IV PRN ×3 (11:39)
[2020-04-26] MEDS ORDERED: MEPERIDINE HCL/PF INJ 25 MG/1 ML DISP.SYRIN IV PRN (11:39)
[2020-04-26] MEDS ORDERED: PROMETHAZINE HCL INJ 25 MG/1 ML VIAL IV PRN ×2 (11:39)
[2020-04-26] MEDS ORDERED: DIPHENHYDRAMINE HCL 50 MG/ML VIAL IV PRN (11:39)
--- NOTE | 2020-04-26 12:05 | Operative Report ---
Nonrecallable Operative Report DATE OF SURGERY: 04/26/20 PREOPERATIVE DIAGNOSIS: End-stage renal disease POSTOPERATIVE DIAGNOSIS: Same as above OPERATION: 1. Ultrasound-guided central venous puncture. 2. Right internal jugular vein permacath placement. SURGEON: DIANA JOHNSON ANESTHESIA: Other - LMA TISSUE REMOVED OR ALTERED: none COMPLICATIONS: none apparnet ESTIMATED BLOOD LOSS: minimal PROCEDURE: Drains/implants: Right internal jugular vein permacath. Procedure in detail: After informed consent was obtained, the patient was brought to the operating room and laid in the Trendelenburg position. The area of the neck and chest were prepped and draped in a normal sterile fashion. 1% lidocaine was used to anesthetize the skin of the neck and chest. Under direct ultrasonic guidance, the right internal jugular vein was cannulated using the supplied access needle. The wire was inserted into the vein easily. The wire was confirmed to be within the lumen of the vein using ultrasonography as well as fluoroscopy. Picture documentation was obtained, and placed on the chart. Next, the permacath was tunneled from the right supraclavicular position laterally, to the medial needle insertion site. The dilator and breakaway sheath were then inserted over the wire. This was done under direct fluorosco pic guidance. The permacath was then inserted into the breakaway sheath, after the wire and dilator were removed. The sheath was cracked and pulled away, leaving the catheter within the SVC. The catheter was pulled back to an appropriate level. The catheter was then aspirated and flushed with heparinized saline. The catheter was sutured to the skin. The needle insertion site skin was closed using 3-0 Vicryl suture in simple, interrupted, subcuticular fashion. Dressings were then placed, and the procedure was concluded. All sponge, instrument, and needle counts were correct x2. Condition: Stable.
--- NOTE | 2020-04-26 12:51 | PDOC PROGRESS REPORT ---
Subjective Progress Note for:: 04/26/20 Subjective:: 40-year-old male with end-stage renal disease. Today he is doing well. He denies fevers, chills, nausea, vomiting, dizziness, orthostasis, abdominal pain, headache, blurry vision. Reason For Visit: HYPERTENSIVE EMERGENCY Physical Exam Vital Signs: Temp Pulse Resp BP Pulse Ox 97.4 F 72 15 126/79 H 98 04/26/20 11:57 04/26/20 12:27 04/26/20 12:27 04/26/20 12:27 04/26/20 12:27 Intake & Output 04/25/20 04/26/20 04/27/20 06:59 06:59 06:59 Intake Total 804 1988 550 Output Total 0100 5996 925 Balance -4151 -0162 -257 Weight 122.6 kg 123.8 kg General appearance: PRESENT: obese Head exam: PRESENT: atraumatic, normocephalic Eye exam: PRESENT: EOMI, PERRLA. ABSENT: scleral icterus Mouth exam: PRESENT: moist, neck supple Neck exam: ABSENT: meningismus, tenderness, thyromegaly, tracheal deviation Respiratory exam: PRESENT: unlabored. ABSENT: tachypnea, wheezes Cardiovascular exam: ABSENT: tachycardia GI/Abdominal exam: PRESENT: soft. ABSENT: distended, tenderness Rectal exam: PRESENT: deferred Extremities exam: ABSENT: clubbing Musculoskeletal exam: ABSENT: deformity Neurological exam: PRESENT: alert, awake, oriented to person, oriented to place, oriented to time, oriented to situation Psychiatric exam: ABSENT: agitated, anxious, depressed Focused psych exam: ABSENT: delusional Skin exam: ABSENT: cyanosis, erythema, jaundice Results Laboratory Results: 04/26/20 04:34 04/26/20 04:34 04/26/20 04/26/20 04/26/20 04:34 04:34 04:34 WBC 7.0 RBC 2.61 L Hgb 8.0 L Hct 23.7 L MCV 91 MCH 30.7 MCHC 33.8 RDW 17.7 H Plt Count 267 Seg Neutrophils % 72.7 Sodium 139.3 Potassium 4.1 Chloride 107 Carbon Dioxide 18 L Anion Gap 14 BUN 98 H Creatinine 12.71 H Est GFR ( Amer) 5 L Glucose 101 Calcium 7.7 L Phosphorus 10.3 H Magnesium 2.1 04/23/20 04/23/20 04/24/20 01:38 11:30 08:52 Troponin I 0.123 0.108 0.120 NT-Pro-B Natriuret Pep 54618 H Impressions: Renal Ultrasound 04/23/20 00:00 IMPRESSION: Small echogenic kidneys bilaterally No hydronephrosis Chest X-Ray 04/26/20 06:00 IMPRESSION: Unchanged radiographic appearance of the chest. Assessment & Plan - Diagnosis (1) Chronic kidney disease Qualifiers: Chronic kidney disease stage: stage 5, not on chronic dialysis Qualified Code(s): N18.5 - Chronic kidney disease, stage 5 Is this a current diagnosis for this admission?: Yes - Time Anticipated Discharge Disposition: unknown Anticipated Discharge Timeframe: unknown - Plan Summary Plan Summary: 40-year-old male with end-stage renal disease. He is in need of a permacath for dialysis. I discussed the procedure with him at length. He has agreed to the procedure. Plan to perform permacath today. Risks/benefits discussed, informed consent obtained, and all questions answered.
[2020-04-26] MEDS: FUROSEMIDE 80 MG TABLET PO SCH ×2 (13:57→17:28)
[2020-04-26] MEDS: CLONIDINE HCL 0.2 MG TABLET PO SCH ×2 (13:57→21:28)
[2020-04-26] MEDS: LISINOPRIL 10 MG TABLET PO SCH (13:57)
[2020-04-26] MEDS: CARVEDILOL 6.25 MG TABLET PO SCH ×2 (13:57→21:27)
[2020-04-26] MEDS: SEVELAMER HCL 800 MG TABLET PO SCH ×2 (13:57→17:28)
[2020-04-26] MEDS: SODIUM BICARBONATE 650 MG TABLET PO SCH ×2 (13:58→21:28)
--- NOTE | 2020-04-26 14:16 | PDOC PROGRESS REPORT ---
Subjective Progress Note for:: 04/26/20 Subjective:: Patient just had successful PermCath placement by Dr. Alanis today. I am seeing him on his first dialysis treatment. He said he is feeling much better compared to when he got admitted the first time. So far he is tolerating dialysis and his newly placed PermCath is functioning very well. He denies any chest pains, shortness of breath, nausea nor vomiting and is actually hungry right now. I reiterated to him about the need for dialysis treatment and that is why we are doing this. Explained to him that he now has reached ESRD that would require chronic dialysis treatment. Explained the procedure and complications to include but not limited to bleeding, infection, hemodynamic instability during the treatment and rarely cardiac arrest. He understood. Also explained to him that he would need chronic dialysis treatment moving forward upon discharge. Di scussed with him the different options for renal replacement therapy including in center hemodialysis which he would be doing after discharge but also explained to him the home dialysis options including home hemodialysis and peritoneal dialysis. Also discuss kidney transplant as an option which he probably would be a good candidate given that he is still young. We will continue to educate him as an outpatient. Reason For Visit: HYPERTENSIVE EMERGENCY Physical Exam Vital Signs: Temp Pulse Resp BP Pulse Ox 97.4 F 72 15 126/79 H 98 04/26/20 11:57 04/26/20 12:27 04/26/20 12:27 04/26/20 12:27 04/26/20 12:27 Intake & Output 04/25/20 04/26/20 04/27/20 06:59 06:59 06:59 Intake Total 804 1988 550 Output Total 5168 8777 925 Balance -1371 -1262 -375 Weight 122.6 kg 123.8 kg Vitals during dialysis: Blood pressure 161/90, heart rate of 63, blood flow rate of 250 mL/min and dialysate flow rate of 600 mL/min. Exam: General appearance: PRESENT: no acute distress, cooperative, well-developed, well-nourished Head exam: PRESENT: atraumatic, normocephalic Eye exam: PRESENT: conjunctiva pale, PERRLA. ABSENT: scleral icterus Neck exam: ABSENT: JVD Respiratory exam: PRESENT: Normal breath sounds. ABSENT: crackles, rales, rhonchi, unlabored, wheezes Cardiovascular exam: PRESENT: Regular rate rhythm -+S1, +S2. ABSENT: diastolic murmur, systolic murmur GI/Abdominal exam: PRESENT: normal bowel sounds, soft. ABSENT: guarding, mass, tenderness Extremities exam: Improved +1 bilateral lower extremity pitting edema Neurological exam: PRESENT: alert, awake, oriented to person, place and time. Skin exam: PRESENT: dry, warm, Results Laboratory Results: 04/26/20 04:34 04/26/20 04:34 04/26/20 04/26/20 04/26/20 04:34 04:34 04:34 WBC 7.0 RBC 2.61 L Hgb 8.0 L Hct 23.7 L MCV 91 MCH 30.7 MCHC 33.8 RDW 17.7 H Plt Count 267 Seg Neutrophils % 72.7 Sodium 139.3 Potassium 4.1 Chloride 107 Carbon Dioxide 18 L Anion Gap 14 BUN 98 H Creatinine 12.71 H Est GFR ( Amer) 5 L Glucose 101 Calcium 7.7 L Phosphorus 10.3 H Magnesium 2.1 04/23/20 04/23/20 04/24/20 01:38 11:30 08:52 Troponin I 0.123 0.108 0.120 NT-Pro-B Natriuret Pep [id number] H Impressions: Renal Ultrasound 04/23/20 00:00 IMPRESSION: Small echogenic kidneys bilaterally No hydronephrosis Chest X-Ray 04/26/20 06:00 IMPRESSION: Unchanged radiographic appearance of the chest. Assessment & Plan - Diagnosis (1) End stage renal disease Is this a current diagnosis for this admission?: Yes Plan: Initially thought to have acute kidney injury on top of chronic kidney disease who presented with hypertensive emergency last Sunday. Patient's kidney function did not improve over the weekend. Previous creatinine in June 2019 was 6.41 with EGFR of 12. Patient is urine protein to creatinine ratio of 11.1. Kidney ultrasound showed bilateral small kidneys measuring 9 cm each, diffuse cortical thinning and increased echogenicity, no hydronephrosis, no cysts/stones nor masses. He also has significant anemia, hyperphosphatemia and hyperparathyroidism. All of this consistent with rapidly progressive kidney disease and now has reached end-stage renal disease requiring chronic renal replacement therapy. Underlying chronic kidney disease likely to be secondary to hypertensive nephrosclerosis although cannot rule out possibility of FSGS. Kidney biopsy not warranted at this time anymore as it probably would not make a difference as the patient is now requiring chronic dialysis treatment. Need for chronic renal replacement therapy and options including complications discussed with patient. Patient understood and is willing to proceed. We will ask case management to arrange chronic outpatient hemodialysis treatment at [facility]. As soon as it is arranged I think patient can be discharged home. We will do dialysis today for 2 hours, using the patient's PermCath, with 3 potassium bath, blood flow rate of 250 mL per minute, dialysate flow rate of 600 mL per minute, ultrafiltration 1 to 1.5 L as tolerated, no heparin and Procrit with 30,000 units during dialysis intravenously. Patient will be closely monitored during his first dialysis treatment. (2) Hypertensive emergency Is this a current diagnosis for this admission?: Yes Plan: Initially received Cardene drip requiring ICU admission. Currently now downgraded. Blood pressure much better. (3) CHF (congestive heart failure) Qualifiers: Heart failure chronicity: acute on chronic Is this a current diagnosis for this admission?: No Plan: Last echocardiogram June 2017 showed concentric LVH with normal LVEF of greater than 65% and normal left ventricular diastolic function. Echocardiogram on 04/23/2020 showed LVEF of 70%, surprisingly normal left ventricular diastolic function and normal wall motion. No pericardial effusion. Presenting symptom is due to worsening kidney function and is now ESRD. (4) Metabolic acidosis Is this a current diagnosis for this admission?: Yes Plan: On sodium bicarbonate 650 mg p.o. every 12 hours. Dialysis would help. (5) Anemia in chronic kidney disease (CKD) Is this a current diagnosis for this admission?: No Plan: Iron is 65.4, T sat 23, ferritin 188. Will start Retacrit during dialysis. (6) Chronic kidney disease-mineral and bone disorder Is this a current diagnosis for this admission?: Yes Plan: PTH of 662.3, phosphorus of 10.3, corrected calcium 8.3 and we will check vitamin D. I started Renvela. We will hold vitamin D analogs until the phosphorus goes down to prevent calcification. Will advise patient regarding low phosphorus diet. (7) Chest pain Qualifiers: Chest pain type: unspecified Qualified Code(s): R07.9 - Chest pain, unspecified Is this a current diagnosis for this admission?: Yes Plan: Likely with troponin leak secondary to ESRD. Chest pain secondary to hypertensive emergency, currently resolved. (8) Obstructive sleep apnea Is this a current diagnosis for this admission?: Yes - Time Time with patient: 15-25 minutes
[2020-04-26 14:37] LABS: HEPATITIS C QUANTITATION HCV Not Detected IU/mL (.)
[2020-04-26] MEDS: ACETAMINOPHEN 325 MG TABLET PO PRN ×2 (15:46→20:27)
--- NOTE | 2020-04-26 19:29 | PDOC PROGRESS REPORT ---
Subjective Progress Note for:: 04/26/20 Subjective:: Patient taken for permacath placement today. Complains of pain around the IV site. Reason For Visit: HYPERTENSIVE EMERGENCY Physical Exam Vital Signs: Temp Pulse Resp BP Pulse Ox 97.6 F 70 21 H 174/100 H 99 04/26/20 15:50 04/26/20 15:50 04/26/20 15:50 04/26/20 15:50 04/26/20 15:50 Intake & Output 04/25/20 04/26/20 04/27/20 06:59 06:59 06:59 Intake Total 804 1988 1030 Output Total 1624 4349 3765 Balance -8681 -3706 -0217 Weight 122.6 kg 123.8 kg General appearance: PRESENT: no acute distress, cooperative Respiratory exam: PRESENT: unlabored. ABSENT: accessory muscle use Cardiovascular exam: ABSENT: tachycardia Neurological exam: PRESENT: alert, awake Results Laboratory Results: 04/26/20 04:34 04/26/20 04:34 04/26/20 04/26/20 04/26/20 04:34 04:34 04:34 WBC 7.0 RBC 2.61 L Hgb 8.0 L Hct 23.7 L MCV 91 MCH 30.7 MCHC 33.8 RDW 17.7 H Plt Count 267 Seg Neutrophils % 72.7 Sodium 139.3 Potassium 4.1 Chloride 107 Carbon Dioxide 18 L Anion Gap 14 BUN 98 H Creatinine 12.71 H Est GFR ( Amer) 5 L Glucose 101 Calcium 7.7 L Phosphorus 10.3 H Magnesium 2.1 04/23/20 04/23/20 04/24/20 01:38 11:30 08:52 Troponin I 0.123 0.108 0.120 NT-Pro-B Natriuret Pep [id number] H Impressions: Renal Ultrasound 04/23/20 00:00 IMPRESSION: Small echogenic kidneys bilaterally No hydronephrosis Chest X-Ray 04/26/20 06:00 IMPRESSION: Unchanged radiographic appearance of the chest. Assessment and Plan - Diagnosis (1) Acute kidney injury superimposed on CKD Is this a current diagnosis for this admission?: Yes (2) Hypertensive emergency Is this a current diagnosis for this admission?: Yes (3) Metabolic acidosis Is this a current diagnosis for this admission?: Yes (4) Obesity (BMI 30-39.9) Is this a current diagnosis for this admission?: No - Plan Summary Summary: Permacath placed today for dialysis to be initiated. Continue hypertensive medications. Nephrology following. Patient social situation will need to be figured out as patient does not have insurance and will require outpatient dialysis. capacity planner notified and will work on this. - Time Time Spent with patient: Less than 15 minutes Anticipated Discharge Disposition: Home, Self Care Anticipated Discharge Timeframe: undetermined
[2020-04-27] MEDS: ACETAMINOPHEN 325 MG TABLET PO PRN ×3 (01:50→21:04)
[2020-04-27] MEDS: HYDRALAZINE HCL 50 MG TABLET PO SCH ×3 (05:32→17:05)
[2020-04-27] MEDS: PANTOPRAZOLE SODIUM 40 MG TABLET.DR PO SCH ×2 (05:32→17:05)
[2020-04-27 05:39] LABS: ABSOLUTE EOSINOPHILS # (AUTO) 0.2 10^3/uL (0.0-0.6); ABSOLUTE LYMPHOCYTES (AUTO) 0.6 10^3/uL (0.5-4.7); ABSOLUTE MONOCYTES (AUTO) 0.9 10^3/uL (0.1-1.4); ABSOLUTE NEUT (AUTO) 6.4 10^3/uL (1.7-8.2); BASOPHILS % (AUTO) 0.4 % (0-2); EOSINOPHILS % (AUTO) 2.3 % (0-6); HEMATOCRIT 22.8 % (37.9-51.0); LYMPHOCYTES % (AUTO) 7.9 % (13-45); MEAN CORPUSCULAR HEMOGLOBIN 30.9 pg (27.0-33.4); MEAN CORPUSCULAR HGB CONC 34.1 g/dL (32.0-36.0); MEAN CORPUSCULAR VOLUME 91 fl (80-97); MONOCYTES % (AUTO) 10.6 % (3-13); PLATELET COUNT 231 10^3/uL (150-450); RED BLOOD COUNT 2.52 10^6/uL (4.35-5.55); RED CELL DISTRIBUTION WIDTH 17.5 % (11.5-14.0); SEGMENTED NEUTROPHILS % (AUTO) 78.8 % (42-78); TOTAL CELLS COUNTED % (AUTO) 100 %; WHITE BLOOD COUNT 8.2 10^3/uL (4.0-10.5)
[2020-04-27 05:44] LABS: ANION GAP 13 (5-19); BLOOD UREA NITROGEN 80 mg/dL (7-20); CALCIUM 7.6 mg/dL (8.4-10.2); CARBON DIOXIDE 21 mmol/L (22-30); CHLORIDE 103 mmol/L (98-107); GLUCOSE 109 mg/dL (75-110); POTASSIUM 4.2 mmol/L (3.6-5.0)
[2020-04-27 05:51] LABS: HEMOGLOBIN 7.8 g/dL (13.5-17.0)
[2020-04-27] MEDS: SEVELAMER HCL 800 MG TABLET PO SCH ×3 (09:02→17:06)
[2020-04-27] MEDS: LISINOPRIL 10 MG TABLET PO SCH (09:05)
[2020-04-27] MEDS: SODIUM BICARBONATE 650 MG TABLET PO SCH ×2 (09:05→21:03)
[2020-04-27] MEDS: CLONIDINE HCL 0.2 MG TABLET PO SCH ×2 (09:06→21:04)
[2020-04-27] MEDS: FUROSEMIDE 80 MG TABLET PO SCH ×2 (09:07→17:05)
[2020-04-27] MEDS: CARVEDILOL 6.25 MG TABLET PO SCH (09:07)
--- NOTE | 2020-04-27 10:11 | PDOC PROGRESS REPORT ---
Subjective Progress Note for:: 04/27/20 Subjective:: Patient tolerated his first dialysis treatment yesterday without any problems or issues. Patient states he feels much better. His blood pressure is also much improved. Plan for next dialysis tomorrow. Also awaiting approval from [facility] for chronic outpatient dialysis treatment. Reason For Visit: HYPERTENSIVE EMERGENCY Physical Exam Vital Signs: Temp Pulse Resp BP Pulse Ox 98 F 78 15 140/88 H 100 04/27/20 08:00 04/27/20 08:00 04/27/20 08:00 04/27/20 08:00 04/27/20 08:00 Intake & Output 04/26/20 04/27/20 04/28/20 06:59 06:59 06:59 Intake Total 19874 Output Total 3250 3400 Balance -1262 -1176 Weight 123.8 kg 125.8 kg Exam: General appearance: PRESENT: no acute distress, cooperative, well-developed, well-nourished Head exam: PRESENT: atraumatic, normocephalic Eye exam: PRESENT: conjunctiva pink, PERRLA. ABSENT: scleral icterus Neck exam: ABSENT: JVD Respiratory exam: PRESENT: Normal breath sounds. ABSENT: crackles, rales, rhonchi, unlabored, wheezes Cardiovascular exam: PRESENT: Regular rate rhythm -+S1, +S2. ABSENT: diastolic murmur, systolic murmur GI/Abdominal exam: PRESENT: normal bowel sounds, soft. ABSENT: guarding, mass, tenderness Extremities exam: Improved bilateral lower extremity trace edema Neurological exam: PRESENT: alert, awake, oriented to person, place and time. Skin exam: PRESENT: dry, warm, Results Laboratory Results: 04/27/20 04:36 04/27/20 04:36 04/27/20 04/27/20 04:36 04:36 WBC 8.2 RBC 2.52 L Hgb 7.8 L Hct 22.8 L MCV 91 MCH 30.9 MCHC 34.1 RDW 17.5 H Plt Count 231 Seg Neutrophils % 78.8 H Sodium 137.0 Potassium 4.2 Chloride 103 Carbon Dioxide 21 L Anion Gap 13 BUN 80 H Creatinine 10.71 H Est GFR ( Amer) 6 L Glucose 109 Calcium 7.6 L 04/23/20 04/23/20 04/24/20 01:38 11:30 08:52 Troponin I 0.123 0.108 0.120 NT-Pro-B Natriuret Pep 14437 H Impressions: Renal Ultrasound 04/23/20 00:00 IMPRESSION: Small echogenic kidneys bilaterally No hydronephrosis Chest X-Ray 04/26/20 06:00 IMPRESSION: Unchanged radiographic appearance of the chest. Assessment & Plan - Diagnosis (1) End stage renal disease Is this a current diagnosis for this admission?: Yes Plan: Initially thought to have acute kidney injury on top of chronic kidney disease who presented with hypertensive emergency last Sunday. Patient's kidney function did not improve over the weekend. Previous creatinine in June 2019 was 6.41 with EGFR of 12. Patient is urine protein to creatinine ratio of 11.1. Kidney ultrasound showed bilateral small kidneys measuring 9 cm each, diffuse cortical thinning and increased echogenicity, no hydronephrosis, no cysts/stones nor masses. He also has significant anemia, hyperphosphatemia and hyperparathyroidism. All of this consistent with rapidly progressive kidney disease and now has reached end-stage renal disease requiring chronic renal replacement therapy. Underlying chronic kidney disease likely to be secondary to hypertensive nephrosclerosis although cannot rule out possibility of FSGS. Kidney biopsy not warranted at this time anymore as it probably would not make a difference as the patient is now requiring chronic dialysis treatment. Need for chronic renal replacement therapy and options including complications discussed with patient. Patient understood and is willing to proceed. Case management to arrange chronic outpatient hemodialysis treatment at [facility]. As soon as it is arranged I think patient can be discharged home. Next dialysis will be tomorrow. (2) Hypertensive emergency Is this a current diagnosis for this admission?: Yes Plan: Initially received Cardene drip requiring ICU admission. Currently now downgraded. Blood pressure much better. (3) CHF (congestive heart failure) Qualifiers: Heart failure chronicity: acute on chronic Is this a current diagnosis for this admission?: No Plan: Last echocardiogram June 2017 showed concentric LVH with normal LVEF of greater than 65% and normal left ventricular diastolic function. Echocardiogram on 04/23/2020 showed LVEF of 70%, surprisingly normal left ventricular diastolic function and normal wall motion. No pericardial effusion. Presenting symptom is due to worsening kidney function and is now ESRD. (4) Metabolic acidosis Is this a current diagnosis for this admission?: Yes Plan: On sodium bicarbonate 650 mg p.o. every 12 hours. Dialysis would help. Improved today. (5) Anemia in chronic kidney disease (CKD) Is this a current diagnosis for this admission?: No Plan: Iron is 65.4, T sat 23, ferritin 188. Will start Retacrit during dialysis. (6) Chronic kidney disease-mineral and bone disorder Is this a current diagnosis for this admission?: Yes Plan: PTH of 662.3, phosphorus of 10.3, corrected calcium 8.3 and we will check vitamin D. I started Renvela. We will hold vitamin D analogs until the phospho bertin goes down to prevent calcification. Will advise patient regarding low phosphorus diet. (7) Chest pain Qualifiers: Chest pain type: unspecified Qualified Code(s): R07.9 - Chest pain, unspecified Is this a current diagnosis for this admission?: Yes Plan: Likely with troponin leak secondary to ESRD. Chest pain secondary to hypertensive emergency, currently resolved. (8) Obstructive sleep apnea Is this a current diagnosis for this admission?: Yes - Time Time with patient: 15-25 minutes
--- NOTE | 2020-04-27 12:00 | RADIOLOGY REPORT (SQ) ---
EXAM DESCRIPTION: FLUORO/CV PLACEMENT IMAGES COMPLETED DATE/TIME: 04/26/2020 3:34 pm REASON FOR STUDY: PERMCATH PLCMT RIGHT SIDE ASSISTED WITH FLUORO IN OR COMPARISON: None. FLUOROSCOPY TIME: 0.8 minutes 2 images saved to PACS. TECHNIQUE: Intra-operative images acquired during surgical procedure to evaluate progress. NUMBER OF IMAGES: 2 LIMITATIONS: None. FINDINGS: Right side central line tip overlying SVC. IMPRESSION: IMAGE(S) OBTAINED DURING PROCEDURE. COMMENT: Quality ID [id number]: Final reports for procedures using fluoroscopy that document radiation exp osure indices, or exposure time and number of fluorographic images (if radiation exposure indices are not available) Please consult full operative report of the attending physician for description of the procedure. TECHNICAL DOCUMENTATION: JOB ID: [id number] 2010 [employer]- All Rights Reserved Reading location - IP/workstation name: [email or web address]
--- NOTE | 2020-04-27 12:33 | PDOC PROGRESS REPORT ---
Subjective Progress Note for:: 04/27/20 Subjective:: Patient is well doing well today. He has some pain in his left foot on the region that is swollen but denies any calf pain. Denies any shortness of breath. Plan for another session of dialysis tomorrow. Discussed plan with him. Reason For Visit: HYPERTENSIVE EMERGENCY Physical Exam Vital Signs: Temp Pulse Resp BP Pulse Ox 98 F 78 15 140/88 H 100 04/27/20 08:00 04/27/20 08:00 04/27/20 08:00 04/27/20 08:00 04/27/20 08:00 Intake & Output 04/26/20 04/27/20 04/28/20 06:59 06:59 06:59 Intake Total 19874 Output Total 3250 3400 Balance -1262 -1176 Weight 123.8 kg 125.8 kg General appearance: PRESENT: no acute distress, cooperative Neck exam: ABSENT: JVD Respiratory exam: PRESENT: crackles, symmetrical, unlabored. ABSENT: tachypnea, wheezes Cardiovascular exam: PRESENT: RRR, +S1, +S2. ABSENT: tachycardia GI/Abdominal exam: PRESENT: soft. ABSENT: rebound, rigid, tenderness Extremities exam: PRESENT: pedal edema Neurological exam: PRESENT: alert, awake, oriented to person, oriented to place, oriented to time, oriented to situation Psychiatric exam: ABSENT: agitated, anxious Results Laboratory Results: 04/27/20 04:36 04/27/20 04:36 04/27/20 04/27/20 04:36 04:36 WBC 8.2 RBC 2.52 L Hgb 7.8 L Hct 22.8 L MCV 91 MCH 30.9 MCHC 34.1 RDW 17.5 H Plt Count 231 Seg Neutrophils % 78.8 H Sodium 137.0 Potassium 4.2 Chloride 103 Carbon Dioxide 21 L Anion Gap 13 BUN 80 H Creatinine 10.71 H Est GFR ( Amer) 6 L Glucose 109 Calcium 7.6 L 04/23/20 04/23/20 04/24/20 01:38 11:30 08:52 Troponin I 0.123 0.108 0.120 NT-Pro-B Natriuret Pep [id number] H Impressions: Renal Ultrasound 04/23/20 00:00 IMPRESSION: Small echogenic kidneys bilaterally No hydronephrosis Guidance Fluoroscopy 04/26/20 00:00 IMPRESSION: IMAGE(S) OBTAINED DURING PROCEDURE. Chest X-Ray 04/26/20 06:00 IMPRESSION: Unchanged radiographic appearance of the chest. Assessment and Plan - Diagnosis (1) End stage renal disease Is this a current diagnosis for this admission?: Yes Plan: Initiated on dialysis via permacath during this hospitalization. We will get on a session on dialysis tomorrow [facility] [place] Nephrology following Discharge planning working on setting patient up with [facility] dialysis as patient currently has no insurance (2) Hypertensive emergency Is this a current diagnosis for this admission?: Yes Plan: BP better controlled today. Coreg 25 mg every 12 hours Clonidine 0.2 mg every 12 hours Hydralazine 100 mg every 6 hours Lisinopril 20mg daily --patient currently adequate but will need to be monitored or med adjusted (3) Metabolic acidosis Is this a current diagnosis for this admission?: Yes Plan: Secondary to ESRD. Continue sodium bicarb. (4) Anemia in chronic kidney disease (CKD) Qualifiers: Chronic kidney disease stage: on chronic dialysis Qualified Code(s): N18.6 - End stage renal disease; D63.1 - Anemia in chronic kidney disease; Z99.2 - D ependence on renal dialysis Is this a current diagnosis for this admission?: No Plan: retracrit with dialysis. (5) Obesity (BMI 30-39.9) Is this a current diagnosis for this admission?: No - Time Time Spent with patient: Less than 15 minutes Anticipated Discharge Disposition: Home, Self Care Anticipated Discharge Timeframe: when HD has been set up
[2020-04-27] MEDS: HYDRALAZINE HCL INJ/PF 20 MG/1 ML SDV IV PRN (20:24)
[2020-04-27] MEDS: CARVEDILOL 12.5 MG TABLET PO SCH (21:04)
[2020-04-28] MEDS: HYDRALAZINE HCL 50 MG TABLET PO SCH ×5 (00:04→23:43)
[2020-04-28] MEDS ORDERED: EPOETIN ALFA-EPBX 30,000 UNIT in SYRINGE, DISPOSABLE, 1 EACH IV PRN (05:00)
[2020-04-28] MEDS ORDERED: NORMAL SALINE 1000 ML 1,000 ML IV PRN (05:00)
[2020-04-28] MEDS ORDERED: HEPARIN SOD (PORCINE) 1,000 UNIT/ML 10 ML VIAL IV PRN (05:00)
[2020-04-28] MEDS: ACETAMINOPHEN 325 MG TABLET PO PRN ×2 (05:21→16:55)
[2020-04-28] MEDS: PANTOPRAZOLE SODIUM 40 MG TABLET.DR PO SCH ×2 (05:22→16:55)
[2020-04-28 06:22] LABS: ANION GAP 13 (5-19); BLOOD UREA NITROGEN 80 mg/dL (7-20); CALCIUM 7.8 mg/dL (8.4-10.2); CARBON DIOXIDE 21 mmol/L (22-30); CHLORIDE 101 mmol/L (98-107); GLUCOSE 106 mg/dL (75-110); PHOSPHORUS 9.1 mg/dL (2.5-4.5); POTASSIUM 4.1 mmol/L (3.6-5.0)
[2020-04-28 06:27] LABS: ABSOLUTE BASOPHILS # (AUTO) 0.1 10^3/uL (0.0-0.2); ABSOLUTE EOSINOPHILS # (AUTO) 0.3 10^3/uL (0.0-0.6); ABSOLUTE LYMPHOCYTES (AUTO) 0.9 10^3/uL (0.5-4.7); ABSOLUTE MONOCYTES (AUTO) 1.1 10^3/uL (0.1-1.4); ABSOLUTE NEUT (AUTO) 6.2 10^3/uL (1.7-8.2); EOSINOPHILS % (AUTO) 3.1 % (0-6); HEMATOCRIT 23.2 % (37.9-51.0); LYMPHOCYTES % (AUTO) 10.3 % (13-45); MEAN CORPUSCULAR HEMOGLOBIN 31.1 pg (27.0-33.4); MEAN CORPUSCULAR HGB CONC 34.3 g/dL (32.0-36.0); MEAN CORPUSCULAR VOLUME 91 fl (80-97); MONOCYTES % (AUTO) 12.6 % (3-13); PLATELET COUNT 240 10^3/uL (150-450); RED BLOOD COUNT 2.55 10^6/uL (4.35-5.55); RED CELL DISTRIBUTION WIDTH 17.8 % (11.5-14.0); TOTAL CELLS COUNTED % (AUTO) 100 %; WHITE BLOOD COUNT 8.5 10^3/uL (4.0-10.5)
[2020-04-28 06:33] LABS: HEMOGLOBIN 7.9 g/dL (13.5-17.0)
[2020-04-28] MEDS: SEVELAMER HCL 800 MG TABLET PO SCH ×3 (09:09→16:55)
--- NOTE | 2020-04-28 09:50 | PDOC PROGRESS REPORT ---
Subjective Progress Note for:: 04/28/20 Subjective:: I am seeing the patient during dialysis this morning. He is doing well. He said he feels much better. He is breathing better. He is tolerating dialysis without any problems. He is still making urine and has passed 2250 mL overnight. No new complaints. Reason For Visit: HYPERTENSIVE EMERGENCY Physical Exam Vital Signs: Temp Pulse Resp BP Pulse Ox 97.3 F 73 16 145/89 H 96 04/28/20 03:19 04/28/20 07:00 04/28/20 03:19 04/28/20 03:19 04/28/20 03:19 Intake & Output 04/27/20 04/28/20 04/29/20 06:59 06:59 06:59 Intake Total 2224 1650 Output Total 3400 2250 Balance -1176 -600 Weight 125.8 kg 125.8 kg Vitals during dialysis: Blood pressure 162/79, heart rate of 64, blood flow rate 250 mL/min and dialysate flow rate of 600 mL/min. Exam: General appearance: PRESENT: no acute distress, cooperative, well-developed, well-nourished Head exam: PRESENT: atraumatic, normocephalic Eye exam: PRESENT: conjunctiva pink, PERRLA. ABSENT: scleral icterus Neck exam: ABSENT: JVD Respiratory exam: PRESENT: Diminished breath sounds. ABSENT: crackles, rales, rhonchi, unlabored, wheezes Cardiovascular exam: PRESENT: Regular rate rhythm -+S1, +S2. ABSENT: diastolic murmur, systolic murmur GI/Abdominal exam: PRESENT: normal bowel sounds, soft. ABSENT: guarding, mass, tenderness Extremities exam: Bilaterally improved lower extremity trace pitting edema Neurological exam: PRESENT: alert, awake, oriented to person, place and time. Skin exam: PRESENT: dry, warm, Results Laboratory Results: 04/28/20 05:42 04/28/20 05:42 04/28/20 04/28/20 05:42 05:42 WBC 8.5 RBC 2.55 L Hgb 7.9 L Hct 23.2 L MCV 91 MCH 31.1 MCHC 34.3 RDW 17.8 H Plt Count 240 Seg Neutrophils % 73.0 Sodium 135.1 L Potassium 4.1 Chloride 101 Carbon Dioxide 21 L Anion Gap 13 BUN 80 H Creatinine 11.36 H Est GFR ( Amer) 6 L Glucose 106 Calcium 7.8 L Phosphorus 9.1 H 04/23/20 04/23/20 04/24/20 01:38 11:30 08:52 Troponin I 0.123 0.108 0.120 NT-Pro-B Natriuret Pep 48129 H Impressions: Renal Ultrasound 04/23/20 00:00 IMPRESSION: Small echogenic kidneys bilaterally No hydronephrosis Guidance Fluoroscopy 04/26/20 00:00 IMPRESSION: IMAGE(S) OBTAINED DURING PROCEDURE. Chest X-Ray 04/26/20 06:00 IMPRESSION: Unchanged radiographic appearance of the chest. Assessment & Plan - Diagnosis (1) End stage renal disease Is this a current diagnosis for this admission?: Yes Plan: Initially thought to have acute kidney injury on top of chronic kidney disease who presented with hypertensive emergency last Sunday. Patient's kidney function did not improve over the weekend. Previous creatinine in June 2019 was 6.41 with EGFR of 12. Patient is urine protein to creatinine ratio of 11.1. Kidney ultrasound showed bilateral small kidneys measuring 9 cm each, diffuse cortical thinning and increased echogenicity, no hydronephrosis, no cysts/stones nor masses. He also has significant anemia, hyperphosphatemia and hyperparathyroidism. All of this consistent with rapidly progressive kidney disease and now has reached end-stage renal disease requiring chronic renal replacement therapy. Underlying chronic kidney disease likely to be secondary to hypertensive nephrosclerosis although cannot rule out possibility of FSGS. Kidney biopsy not warranted at this time anymore as it probably would not make a difference as the patient is now requiring chronic dialysis treatment. Need for chronic renal replacement therapy and options including complications discussed with patient. Patient understood and is willing to proceed. Case management to arrange chronic outpatient hemodialysis treatment at [facility] [place]. As soon as it is arranged I think patient can be discharged home. We will do dialysis today for 2.5 hours, using the patient's CVC, with 3 potassi um bath, blood flow rate of 250 mL per minute, dialysate flow rate of 600 mL per minute, ultrafiltration 1 L as tolerated, no heparin and Procrit with 30,000 units during dialysis intravenously. Patient is closely being monitored throughout dialysis treatment. (2) Hypertensive emergency Is this a current diagnosis for this admission?: Yes Plan: Initially received Cardene drip requiring ICU admission. Currently now downgraded. Blood pressure much better. (3) CHF (congestive heart failure) Qualifiers: Heart failure chronicity: acute on chronic Is this a current diagnosis for this admission?: No Plan: Last echocardiogram June 2017 showed concentric LVH with normal LVEF of greater than 65% and normal left ventricular diastolic function. Echocardiogram on 04/23/2020 showed LVEF of 70%, surprisingly normal left ventricular diastolic function and normal wall motion. No pericardial effusion. Presenting symptom is due to worsening kidney function and is now ESRD. (4) Metabolic acidosis Is this a current diagnosis for this admission?: Yes Plan: On sodium bicarbonate 650 mg p.o. every 12 hours. Dialysis would help. Improved. (5) Anemia in chronic kidney disease (CKD) Qualifiers: Chronic kidney disease stage: on chronic dialysis Qualified Code(s): N18.6 - End stage renal disease; D63.1 - Anemia in chronic kidney disease; Z99.2 - Dependence on renal dialysis Is this a current diagnosis for this admission?: No Plan: Iron is 65.4, T sat 23, ferritin 188. Will start Retacrit during dialysis. (6) Chronic kidney disease-mineral and bone disorder Is this a current diagnosis for this admission?: Yes Plan: PTH of 662.3, phosphorus of 9.1, corrected calcium 8.0 and vitamin D less than 12.8. I started Renvela. We will hold vitamin D analogs until the phosphorus goes down to prevent calcification. Will advise patient regarding low phosphorus diet. Start vitamin D3. (7) Chest pain Qualifiers: Chest pain type: unspecified Qualified Code(s): R07.9 - Chest pain, unspecified Is this a current diagnosis for this admission?: Yes Plan: Likely with troponin leak secondary to ESRD. Chest pain secondary to hypertensive emergency, currently resolved. (8) Obstructive sleep apnea Is this a current diagnosis for this admission?: Yes - Time Time with patient: 15-25 minutes
[2020-04-28] MEDS: CLONIDINE HCL 0.2 MG TABLET PO SCH ×2 (10:19→22:54)
[2020-04-28] MEDS: LISINOPRIL 10 MG TABLET PO SCH (10:20)
[2020-04-28] MEDS: FUROSEMIDE 80 MG TABLET PO SCH ×2 (10:20→17:47)
[2020-04-28] MEDS: CARVEDILOL 12.5 MG TABLET PO SCH ×2 (10:20→22:54)
[2020-04-28] MEDS: CHOLECALCIFEROL (D3) 1,000 UNIT (25 MCG) TABLET PO SCH (10:21)
[2020-04-28] MEDS: SODIUM BICARBONATE 650 MG TABLET PO SCH ×2 (10:21→22:54)
--- NOTE | 2020-04-28 12:45 | PDOC PROGRESS REPORT ---
Subjective Progress Note for:: 04/28/20 Subjective:: Patient is doing well. He denies any shortness of breath, chest pain nausea vomiting. Feels otherwise well and is ready to go home. We are simply waiting on obtaining a dialysis center for patient. supply chain planner working on [employer]. Reason For Visit: HYPERTENSIVE EMERGENCY Physical Exam Vital Signs: Temp Pulse Resp BP Pulse Ox 97.9 F 75 18 136/91 H 95 04/28/20 12:24 04/28/20 12:24 04/28/20 12:24 04/28/20 12:24 04/28/20 12:24 Intake & Output 04/27/20 04/28/20 04/29/20 06:59 06:59 06:59 Intake Total 2224 1650 Output Total 3400 2250 Balance -1176 -600 Weight 125.8 kg 125.8 kg General appearance: PRESENT: no acute distress, cooperative Neck exam: ABSENT: JVD Respiratory exam: PRESENT: symmetrical, unlabored. ABSENT: tachypnea, wheezes Cardiovascular exam: PRESENT: RRR, +S1, +S2. ABSENT: tachycardia Neurological exam: PRESENT: alert, awake, oriented to person, oriented to place, oriented to time Psychiatric exam: ABSENT: agitated, anxious Results Laboratory Results: 04/28/20 05:42 04/28/20 05:42 04/28/20 04/28/20 05:42 05:42 WBC 8.5 RBC 2.55 L Hgb 7.9 L Hct 23.2 L MCV 91 MCH 31.1 MCHC 34.3 RDW 17.8 H Plt Count 240 Seg Neutrophils % 73.0 Sodium 135.1 L Potassium 4.1 Chloride 101 Carbon Dioxide 21 L Anion Gap 13 BUN 80 H Creatinine 11.36 H Est GFR ( Amer) 6 L Glucose 106 Calcium 7.8 L Phosphorus 9.1 H 04/23/20 04/23/20 04/24/20 01:38 11:30 08:52 Troponin I 0.123 0.108 0.120 NT-Pro-B Natriuret Pep [id number] H Impressions: Renal Ultrasound 04/23/20 00:00 IMPRESSION: Small echogenic kidneys bilaterally No hydronephrosis Guidance Fluoroscopy 04/26/20 00:00 IMPRESSION: IMAGE(S) OBTAINED DURING PROCEDURE. Chest X-Ray 04/26/20 06:00 IMPRESSION: Unchanged radiographic appearance of the chest. Assessment and Plan - Diagnosis (1) End stage renal disease Is this a current diagnosis for this admission?: Yes Plan: Initiated on dialysis via permacath during this hospitalization. We will get sessions on Sunday and Fridays [facility] Nephrology following Patient remains ready for discharge pending securing a dialysis center outpatient for patient. Discharge planning working on setting patient up with [facility] dialysis as patient currently has no insurance. Patient has applied for Medicaid. (2) Hypertensive emergency Is this a current diagnosis for this admission?: Yes Plan: BP better controlled. Coreg 25 mg every 12 hours Clonidine 0.2 mg every 12 hours Hydralazine 100 mg every 6 hours Lisinopril 20mg daily --patient currently adequate but will need to be monitored or med adjusted (3) Metabolic acidosis Is this a current diagnosis for this admission?: Yes Plan: Secondary to ESRD. Continue sodium bicarb. (4) Anemia in chronic kidney disease (CKD) Qualifiers: Chronic kidney disease stage: on chronic dialysis Qualified Code(s): N18.6 - End stage renal disease; D63.1 - Anemia in chronic kidney disease; Z99.2 - Dependence on renal dialysis Is this a current diagnosis for this admission?: No Plan: retracrit with dialysis. (5) Obesity (BMI 30-39.9) Is this a current diagnosis for this admission?: No - Time Time Spent with patient: Less than 15 minutes Anticipated Discharge Disposition: Home, Self Care Anticipated Discharge Timeframe: once outpatient dialysis is set up
[2020-04-28] MEDS: HEPARIN SOD (PORCINE) 5,000 UNIT/ML 1 ML VIAL SUBCUT SCH (22:54)
[2020-04-29] MEDS: HYDRALAZINE HCL 50 MG TABLET PO SCH ×2 (05:48→13:36)
[2020-04-29] MEDS: PANTOPRAZOLE SODIUM 40 MG TABLET.DR PO SCH (05:48)
[2020-04-29] MEDS: SODIUM BICARBONATE 650 MG TABLET PO SCH (09:04)
[2020-04-29] MEDS: HEPARIN SOD (PORCINE) 5,000 UNIT/ML 1 ML VIAL SUBCUT SCH (09:04)
[2020-04-29] MEDS: FUROSEMIDE 80 MG TABLET PO SCH (09:05)
[2020-04-29] MEDS: CHOLECALCIFEROL (D3) 1,000 UNIT (25 MCG) TABLET PO SCH (09:05)
[2020-04-29] MEDS: CARVEDILOL 12.5 MG TABLET PO SCH (09:05)
[2020-04-29] MEDS: CLONIDINE HCL 0.2 MG TABLET PO SCH (09:05)
[2020-04-29] MEDS: SEVELAMER HCL 800 MG TABLET PO SCH ×2 (09:05→13:36)
[2020-04-29] MEDS: LISINOPRIL 10 MG TABLET PO SCH (09:05)
[2020-04-29 14:35] VITALS: BP 128/86
--- NOTE | 2020-04-29 14:41 | PDOC DISCHARGE SUMMARY ---
Impression - Admit/DC Date/PCP Admission Date/Primary Care Provider: 04/23/20 05:58 Discharge Date: 04/29/20 - Discharge Diagnosis (1) Acute kidney injury superimposed on CKD Is this a current diagnosis for this admission?: Yes (2) Chest pain Is this a current diagnosis for this admission?: Yes (3) End stage renal disease Is this a current diagnosis for this admission?: Yes (4) Hypertensive emergency Is this a current diagnosis for this admission?: Yes (5) Metabolic acidosis Is this a current diagnosis for this admission?: Yes (6) Obesity (BMI 30-39.9) Is this a current diagnosis for this admission?: Yes - Assessment Summary: CHF was ruled out - Additional Information Resuscitation Status: Full Code Discharge Diet: Cardiac, Other (Comments) Discharge Activity: Activity As Tolerated, Balance Activity w/Rest, Weigh Daily Referrals: CHICO BAUTISTA MD [HONORARY] - 05/06/20 10:00 am (Only doing telephone appointments - Dr. Lopez will call patient.) Prescriptions: Hydralazine HCl [Apresoline 50 mg Tablet] 100 mg PO Q6 #240 tablet Sevelamer HCl [Renagel 800 mg Tablet] 1,600 mg PO MEALS #180 tablet Cholecalciferol (Vitamin D3) [Vitamin D3 1000 Unit Tablet] 2,000 unit PO DAILY #60 tablet Home Medications: Clonidine HCl [Catapres 0.1 mg Tablet] 0.2 mg PO Q8 01/18/19 Aspirin [[place] Aspirin EC] 81 mg PO DAILY 04/23/20 Carvedilol [Coreg 12.5 mg Tablet] 25 mg PO Q12 04/23/20 Furosemide [Lasix 80 mg Tablet] 80 mg PO BID 04/23/20 Lisinopril 20 mg PO QHS 04/23/20 Cholecalciferol (Vitamin D3) [Vitamin D3 1000 Unit Tablet] 2,000 unit PO DAILY #60 tablet 04/29/20 Hydralazine HCl [Apresoline 50 mg Tablet] 100 mg PO Q6 #240 tablet 04/29/20 Sevelamer HCl [Renagel 800 mg Tablet] 1,600 mg PO MEALS #180 tablet 04/29/20 Sodium Bicarbonate [Sodium Bicarbonate 650 mg Tablet] 1,300 mg PO Q12 tablet 04/29/20 History of Present Illiness History of Present Illness: RACHEL PHELPS is a 40 year old male Patient was admitted with hypertensive emergency. He was found to be in acute pulmonary edema. His initial creatinine was 12.6 with a BUN of 109. Patient was also fluid overloaded. As such was admitted for further management. Hospital Course Hospital Course: Patient was initially admitted to the intensive care unit. He was started on parents are antihypertensives. He was aggressively diuresed. His elevated troponin was thought to be due to his hypertensive urgency and his kidney failure. EKG showed no acute ischemic changes started on dialysis during this hospitalization. Blood pressures much better controlled. His medications were adjusted and will need further outpatient adjustment. His last dialysis was on April 28. He has been relatively stable and he was waiting for a dialysis chair to be available prior to discharge. COVID test was done which is negative. Although patient was in pulmonary edema this was due to the hypertensive emergency. Echocardiogram showed an ejection fraction of 70% with normal left ventricular systolic as well as diastolic function Physical Exam Vital Signs: Temp Pulse Resp BP Pulse Ox 97.8 F 64 16 128/86 H 100 04/29/20 14:34 04/29/20 14:34 04/29/20 14:34 04/29/20 14:34 04/29/20 14:34 Intake & Output 04/28/20 04/29/20 04/30/20 06:59 06:59 06:59 Intake Total 1650 733 Output Total 2250 3075 Balance -600 -2342 Weight 125.8 kg 122.5 kg General appearance: PRESENT: no acute distress, obese, well-developed, well- nourished Head exam: PRESENT: atraumatic, normocephalic Eye exam: PRESENT: conjunctiva pink, EOMI, PERRLA. ABSENT: scleral icterus Ear exam: PRESENT: normal external ear exam Mouth exam: PRESENT: moist, tongue midline Neck exam: PRESENT: other - R IJ catheter. ABSENT: carotid bruit, JVD, lymphadenopathy, thyromegaly Respiratory exam: PRESENT: clear to auscultation ban, unlabored. ABSENT: rales, rhonchi, wheezes Cardiovascular exam: PRESENT: RRR, +S1, +S2. ABSENT: diastolic murmur, rubs, systolic murmur Pulses: PRESENT: normal dorsalis pedis pul GI/Abdominal exam: PRESENT: normal bowel sounds, soft. ABSENT: distended, guarding, mass, organolmegaly, rebound, tenderness Rectal exam: PRESENT: deferred Extremities exam: PRESENT: full ROM, +1 edema. ABSENT: calf tenderness, clubbing, pedal edema Neurological exam: PRESENT: alert, awake, oriented to person, oriented to place, oriented to time, oriented to situation, CN II-XII grossly intact. ABSENT: motor sensory deficit Psychiatric exam: PRESENT: appropriate affect, normal mood. ABSENT: homicidal ideation, suicidal ideation Skin exam: PRESENT: dry, intact. ABSENT: cyanosis, rash Results Laboratory Results: WBC 8.5 10^3/uL (4.0-10.5) 04/28/20 05:42 RBC 2.55 10^6/uL (4.35-5.55) L 04/28/20 05:42 Hgb 7.9 g/dL (13.5-17.0) L 04/28/20 05:42 Hct 23.2 % (37.9-51.0) L 04/28/20 05:42 MCV 91 fl (80-97) 04/28/20 05:42 MCH 31.1 pg (27.0-33.4) 04/28/20 05:42 MCHC 34.3 g/dL (32.0-36.0) 04/28/20 05:42 RDW 17.8 % (11.5-14.0) H 04/28/20 05:42 Plt Count 240 10^3/uL (150-450) 04/28/20 05:42 Lymph % (Auto) 10.3 % (13-45) L 04/28/20 05:42 [place] % (Auto) 12.6 % (3-13) 04/28/20 05:42 Eos % (Auto) 3.1 % (0-6) 04/28/20 05:42 Baso % (Auto) 1.0 % (0-2) 04/28/20 05:42 Reticulocyte # 0.087 10^6/uL (0.028-0.122) 04/24/20 06:10 Absolute Neuts (auto) 6.2 10^3/uL (1.7-8.2) 04/28/20 05:42 Absolute Lymphs (auto) 0.9 10^3/uL (0.5-4.7) 04/28/20 05:42 Absolute Monos (auto) 1.1 10^3/uL (0.1-1.4) 04/28/20 05:42 Absolute Eos (auto) 0.3 10^3/uL (0.0-0.6) 04/28/20 05:42 Absolute Basos (auto) 0.1 10^3/uL (0.0-0.2) 04/28/20 05:42 Seg Neutrophils % 73.0 % (42-78) 04/28/20 05:42 Retic Count (auto) 3.32 % (0.66-2.85) H 04/24/20 06:10 PT 13.2 SEC (11.4-15.4) 04/24/20 06:10 INR 0.98 04/24/20 06:10 APTT 34.0 SEC (23.5-35.8) 04/24/20 06:10 Sodium 135.1 mmol/L (137-145) L 04/28/20 05:42 Potassium 4.1 mmol/L (3.6-5.0) 04/28/20 05:42 Chloride 101 mmol/L (98-107) 04/28/20 05:42 Carbon Dioxide 21 mmol/L (22-30) L 04/28/20 05:42 Anion Gap 13 (5-19) 04/28/20 05:42 BUN 80 mg/dL (7-20) H 04/28/20 05:42 Creatinine 11.36 mg/dL (0.52-1.25) H 04/28/20 05:42 Est GFR ( Amer) 6 (>60) L 04/28/20 05:42 Est GFR (MDRD) Non-Af 5 (>60) L 04/28/20 05:42 Glucose 106 mg/dL (75-110) 04/28/20 05:42 Calcium 7.8 mg/dL (8.4-10.2) L 04/28/20 05:42 Phosphorus 9.1 mg/dL (2.5-4.5) H 04/28/20 05:42 Magnesium 2.1 mg/dL (1.6-2.3) 04/26/20 04:34 Iron 65.4 ug/dL (49-181) 04/24/20 06:10 TIBC 279 ug/dL (250-450) 04/24/20 06:10 % Saturation 23 % 04/24/20 06:10 Ferritin 188.00 ng/mL (17.9-464.0) 04/24/20 06:10 Total Bilirubin 0.3 mg/dL (0.2-1.3) 04/24/20 06:10 Direct Bilirubin 0.3 mg/dL (0.0-0.4) 04/24/20 06:10 Neonat Total Bilirubin Not Reportable 04/24/20 06:10 Neonat Direct Bilirubin Not Reportable 04/24/20 06:10 Neonat Indirect Bili Not Reportable 04/24/20 06:10 AST 11 U/L (17-59) L 04/24/20 06:10 ALT 14 U/L (<50) 04/24/20 06:10 Alkaline Phosphatase 60 U/L (38-126) 04/24/20 06:10 Troponin I 0.120 ng/mL 04/24/20 08:52 NT-Pro-B Natriuret Pep 56995 pg/mL (<125) H 04/23/20 01:38 Total Protein 5.6 g/dL (6.3-8.2) L 04/24/20 06:10 Albumin 3.2 g/dL (3.5-5.0) L 04/24/20 06:10 Triglycerides 179 mg/dL (<150) H 04/24/20 06:10 Cholesterol 209.77 mg/dL (0-200) H 04/24/20 06:10 LDL Cholesterol Direct 134 mg/dL (<100) H 04/24/20 06:10 VLDL Cholesterol 35.8 mg/dL (10-31) H 04/24/20 06:10 HDL Cholesterol 38 mg/dL (>40) L 04/24/20 06:10 Vitamin B12 325.0 pg/mL (239-931) 04/24/20 06:10 Vitamin D 25-Hydroxy < 12.8 ng/mL (14.7-68.3) L 04/26/20 14:20 Folate 6.50 ng/mL (>2.76) 04/24/20 06:10 PTH Intact 662.3 pg/mL (10.0-65.0) H 04/24/20 06:10 Urine Color STRAW 04/23/20 02:24 Urine Appearance CLEAR 04/23/20 02:24 Urine pH 5.0 (5.0-9.0) 04/23/20 02:24 Ur Specific [place] 1.011 04/23/20 02:24 Urine Protein >=500 mg/dL (NEGATIVE) H 04/23/20 02:24 Urine Glucose (UA) 50 mg/dL (NEGATIVE) H 04/23/20 02:24 Urine Ketones NEGATIVE mg/dL (NEGATIVE) 04/23/20 02:24 Urine Blood SMALL (NEGATIVE) H 04/23/20 02:24 Urine Nitrite NEGATIVE (NEGATIVE) 04/23/20 02:24 Urine Bilirubin NEGATIVE (NEGATIVE) 04/23/20 02:24 Urine Urobilinogen NEGATIVE mg/dL (<2.0) 04/23/20 02:24 Ur Leukocyte Esterase NEGATIVE (NEGATIVE) 04/23/20 02:24 Urine WBC (Auto) 1 /HPF 04/23/20 02:24 Urine RBC (Auto) 0 /HPF 04/23/20 02:24 Urine Bacteria (Auto) TRACE /HPF 04/23/20 02:24 Squamous Epi Cells Auto <1 /HPF 04/23/20 02:24 Urine Mucus (Auto) RARE /LPF 04/23/20 02:24 Urine Creatinine 70.3 mg/dL (22-328) 04/23/20 23:30 Protein/Creatinin Ratio 11.1 mg/mg (0.0-0.2) H 04/23/20 23:30 Urine Total Protein 780.9 mg/dL (<12) H 04/23/20 23:30 Urine Ascorbic Acid NEGATIVE (NEGATIVE) 04/23/20 02:24 Urine Opiates Screen NEGATIVE 04/23/20 02:24 Urine Methadone Screen NEGATIVE 04/23/20 02:24 Ur Barbiturates Screen NEGATIVE 04/23/20 02:24 Ur Phencyclidine Scrn NEGATIVE 04/23/20 02:24 Ur Amphetamines Screen NEGATIVE 04/23/20 02:24 U Benzodiazepines Scrn NEGATIVE 04/23/20 02:24 Urine Cocaine Screen NEGATIVE 04/23/20 02:24 U Marijuana (THC) Screen NEGATIVE 04/23/20 02:24 Hep Bs Antigen Negative (Negative) 04/24/20 06:10 Hep Bs Antibody, Quant <3.1 mIU/mL (Immunity>9) L 04/24/20 06:10 Hep B Core Total Ab Negative (Negative) 04/24/20 06:10 HCV Quantitation HCV Not Detected IU/mL (.) 04/24/20 06:10 HCV RNA PCR Test Info Comment (.) 04/24/20 06:10 SARS-CoV-2 (PCR) NEGATIVE (NEGATIVE) 04/29/20 12:30 04/23/20 04/23/20 04/24/20 01:38 11:30 08:52 Troponin I 0.123 0.108 0.120 NT-Pro-B Natriuret Pep 72963 H Impressions: Renal Ultrasound 04/23/20 00:00 IMPRESSION: Small echogenic kidneys bilaterally No hydronephrosis Chest X-Ray 04/23/20 00:59 IMPRESSION: Cardiomegaly without acute pulmonary abnormalities. Chest X-Ray 04/24/20 06:00 IMPRESSION: Borderline cardiomegaly. No acute infiltrates Chest X-Ray 04/25/20 06:00 IMPRESSION: Minimal left basilar atelectasis Guidance Fluoroscopy 04/26/20 00:00 IMPRESSION: IMAGE(S) OBTAINED DURING PROCEDURE. Chest X-Ray 04/26/20 06:00 IMPRESSION: Unchanged radiographic appearance of the chest. Plan Health Concerns: Continue dialysis and follow-up with nephrology as advised Time Spent: Greater than 30 Minutes Stroke Is this a Stroke Patient?: No Acute Heart Failure Is this a Heart Failure Patient?: No
== END 2020-04-29 15:06 | disposition home or self-care (01) | DRG 682 ==
LOC: ER 23:13 → EH 04-23 05:58 → ICU 04-23 08:25 → 3W 04-24 23:55 → 3S 04-27 22:31
PROVIDERS: ADMIT Internal Medicine; ATTEND Internal Medicine
PROC: B548ZZA Ultrasonography of Superior Vena Cava, Guidance (ICD-10-PCS; 2020-04-26)
PROC: 5A1D70Z Performance of Urinary Filtration, Intermittent, Less than 6 Hours Per Day (ICD-10-PCS; 2020-04-26)
PROC: 02HV33Z Insertion of Infusion Device into Superior Vena Cava, Percutaneous Approach (ICD-10-PCS; principal; 2020-04-26 10:30)
PROC: 5A1D70Z Performance of Urinary Filtration, Intermittent, Less than 6 Hours Per Day (ICD-10-PCS; 2020-04-28)
DX: I12.0 Hypertensive chronic kidney disease with stage 5 chronic kidney disease or end stage renal disease (principal); N18.6 End stage renal disease; I16.1 Hypertensive emergency; E87.2 Acidosis; Z68.41 Body mass index [BMI] 40.0-44.9, adult; N17.9 Acute kidney failure, unspecified; T46.5X6A Underdosing of other antihypertensive drugs, initial encounter; T46.4X6A Underdosing of angiotensin-converting-enzyme inhibitors, initial encounter; T46.1X6A Underdosing of calcium-channel blockers, initial encounter; D63.1 Anemia in chronic kidney disease; E66.01 Morbid (severe) obesity due to excess calories; J44.9 Chronic obstructive pulmonary disease, unspecified; F14.10 Cocaine abuse, uncomplicated; G47.33 Obstructive sleep apnea (adult) (pediatric); F12.90 Cannabis use, unspecified, uncomplicated; Z20.828 Contact with and (suspected) exposure to other viral communicable diseases; E21.3 Hyperparathyroidism, unspecified; I25.2 Old myocardial infarction; Z59.7 Insufficient social insurance and welfare support; Z79.899 Other long term (current) drug therapy; Z91.128 Patient's intentional underdosing of medication regimen for other reason; Z99.2 Dependence on renal dialysis; Z79.82 Long term (current) use of aspirin
CPT/HCPCS: 36415; 532; 71045; 76770; 77001; 80048; 80053; 80061; 80307; 81001; 82306; 82570; 82607; 82728; 82746; 83540; 83550; 83735; 83880; 83970; 84100; 84156; 84484; 85025; 85045; 85610; 85730; 86317; 86704; 87340; 87522; 87635; 93005; 93010; 93306; 94660; 96365; 96366; 96375; 99291; 99292; C1713; C9803; J0360; J0690; J1642; J1644; J1940; J2250; J2405; J2704; J3010; J3490; Q5105

== ENCOUNTER 2020-04-30 02:30 | Emergency (ER) | payer SELFPAY ==
[2020-04-30] MEDS ORDERED: MORPHINE SULFATE 10 MG/ML INJ IV ONE (03:34)
[2020-04-30] MEDS ORDERED: CARVEDILOL 12.5 MG TABLET PO ONE (03:40)
[2020-04-30] MEDS ORDERED: HYDRALAZINE HCL 50 MG TABLET PO ONE ×2 (03:40→08:02)
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
[2020-04-30] MEDS ORDERED: HYDROCODONE/ACETAMINOPHEN 5-325 MG TABLET PO ONE ×2 (03:48→07:03)
[2020-04-30 04:07] LABS: ABSOLUTE BASOPHILS # (AUTO) 0.1 10^3/uL (0.0-0.2); ABSOLUTE EOSINOPHILS # (AUTO) 0.2 10^3/uL (0.0-0.6); ABSOLUTE LYMPHOCYTES (AUTO) 0.7 10^3/uL (0.5-4.7); ABSOLUTE MONOCYTES (AUTO) 1.5 10^3/uL (0.1-1.4); ABSOLUTE NEUT (AUTO) 10.8 10^3/uL (1.7-8.2); BASOPHILS % (AUTO) 0.5 % (0-2); EOSINOPHILS % (AUTO) 1.7 % (0-6); HEMATOCRIT 25.2 % (37.9-51.0); HEMOGLOBIN 8.6 g/dL (13.5-17.0); LYMPHOCYTES % (AUTO) 5.5 % (13-45); MEAN CORPUSCULAR HEMOGLOBIN 31.5 pg (27.0-33.4); MEAN CORPUSCULAR HGB CONC 34.3 g/dL (32.0-36.0); MEAN CORPUSCULAR VOLUME 92 fl (80-97); PLATELET COUNT 291 10^3/uL (150-450); RED BLOOD COUNT 2.74 10^6/uL (4.35-5.55); RED CELL DISTRIBUTION WIDTH 16.7 % (11.5-14.0); SEGMENTED NEUTROPHILS % (AUTO) 81.3 % (42-78); TOTAL CELLS COUNTED % (AUTO) 100 %; WHITE BLOOD COUNT 13.3 10^3/uL (4.0-10.5)
[2020-04-30 04:25] LABS: ALBUMIN 3.7 g/dL (3.5-5.0); ALKALINE PHOSPHATASE 68 U/L (38-126); ANION GAP 15 (5-19); ASPARTATE AMINO TRANSFERASE 15 U/L (17-59); BILIRUBIN,DIRECT 0.4 mg/dL (0.0-0.4); BILIRUBIN,TOTAL 0.4 mg/dL (0.2-1.3); BLOOD UREA NITROGEN 77 mg/dL (7-20); CALCIUM 8.7 mg/dL (8.4-10.2); CARBON DIOXIDE 21 mmol/L (22-30); CHLORIDE 103 mmol/L (98-107); GLUCOSE 101 mg/dL (75-110); POTASSIUM 4.5 mmol/L (3.6-5.0)
--- NOTE | 2020-04-30 05:00 | RADIOLOGY REPORT (SQ) ---
EXAM DESCRIPTION: XR CHEST 1 VIEW COMPLETED DATE/TME: 04/30/2020 03:38 CLINICAL HISTORY: chest pain COMPARISON: 04/26/2020 FINDINGS: Single frontal view of the chest. Tubes and lines: Right IJ temporary hemodialysis catheter. Cardiomediastinal silhouette: Cardiomegaly. Lungs: No consolidation, pneumothorax, or pleural effusion. Low lung volumes. Leads overlie the chest. Bones: Stable. Upper abdomen: Stable. IMPRESSION: 1. Interval placement of right IJ central venous catheter in appropriate position. 2. Cardiomegaly.
[2020-04-30] MEDS ORDERED: CLONIDINE HCL 0.2 MG TABLET PO ONE (08:01)
[2020-04-30] MEDS ORDERED: ACETAMINOPHEN 325 MG TABLET PO ONE (09:49)
--- NOTE | 2020-04-30 10:30 | RADIOLOGY REPORT (SQ) ---
EXAM DESCRIPTION: VENOUS UNILATERAL LOWER IMAGES COMPLETED DATE/TIME: 04/30/2020 10:10 am REASON FOR STUDY: LLE pain COMPARISON: None. TECHNIQUE: Dynamic and static west scale and color images acquired of the left leg venous system. Se lected spectral images acquired with additional compression and augmentation maneuvers. The contralat eral common femoral vein and saphenofemoral junction were also imaged. Images stored on PACS. LIMITATIONS: None. FINDINGS: COMMON FEMORAL: Normal phasicity, compression and augmentation. No visualized echogenic ma terial on west scale. No defects on color images. FEMORAL: Normal compression and augmentation. No visualized echogenic material on west scale. No defe cts on color images. POPLITEAL: Normal compression, augmentation. No visualized echogenic material on west scale. No defec ts on color images. CALF VESSELS: Normal compression, augmentation. No visualized echogenic material on west scale. No de fects on color images. GSV and SSV: Normal compression, augmentation. No visualized echogenic material on west scale. No def ects on color images. ANY DEEP VENOUS INSUFFICIENCY: Not evaluated. ANY EVIDENCE OF POPLITEAL CYST: No. OTHER: No other significant finding. CONTRALATERAL COMMON FEMORAL VEIN: Normal phasicity, compression and augmentation. No visualized echogenic material on west scale. No de fects on color images. IMPRESSION: 1. NO EVIDENCE OF DVT OR SVT IN THE LEFT LEG. COMMENT: 1. The results of this examination were discussed with emergency department provider on and 10:24 hours. TECHNICAL DOCUMENTATION: JOB ID: [id number] 2010 Assignment Editor- All Rights Reserved Reading location - IP/workstation name: [email or web address]
[2020-04-30 10:51] VITALS: BP 164/98
--- NOTE | 2020-04-30 17:56 | EKG REPORT ---
SEVERITY:- BORDERLINE ECG - SINUS RHYTHM BORDERLINE PROLONGED QT INTERVAL NONSPECIFIC ST-T CHANGES- LATERAL LEADS : Confirmed by: Brett Montelongo MD 30-Apr-2020 17:54:50
== END 2020-04-30 10:52 | disposition home or self-care (01) ==
LOC: ER 02:30
DX: M79.605 Pain in left leg (principal); R07.9 Chest pain, unspecified; I10 Essential (primary) hypertension; I25.2 Old myocardial infarction; Z99.2 Dependence on renal dialysis
CPT/HCPCS: 36415; 71045; 80053; 83735; 84484; 85025; 93005; 93010; 93971; 99285

== ENCOUNTER 2020-08-07 13:00 | Emergency (ER) | payer MEDICAID ==
[2020-08-07 13:21] LABS: ABSOLUTE BASOPHILS # (AUTO) 0.1 10^3/uL (0.0-0.2); ABSOLUTE EOSINOPHILS # (AUTO) 0.2 10^3/uL (0.0-0.6); ABSOLUTE LYMPHOCYTES (AUTO) 0.9 10^3/uL (0.5-4.7); ABSOLUTE MONOCYTES (AUTO) 0.8 10^3/uL (0.1-1.4); BASOPHILS % (AUTO) 0.8 % (0-2); MONOCYTES % (AUTO) 11.7 % (3-13); TOTAL CELLS COUNTED % (AUTO) 100 %
[2020-08-07 13:32] LABS: EOSINOPHILS % (AUTO) 2.8 % (0-6); HEMATOCRIT 30.3 % (37.9-51.0); HEMOGLOBIN 10.1 g/dL (13.5-17.0); LYMPHOCYTES % (AUTO) 12.6 % (13-45); MEAN CORPUSCULAR HEMOGLOBIN 30.4 pg (27.0-33.4); MEAN CORPUSCULAR HGB CONC 33.5 g/dL (32.0-36.0); MEAN CORPUSCULAR VOLUME 91 fl (80-97); PLATELET COUNT 229 10^3/uL (150-450); RED BLOOD COUNT 3.33 10^6/uL (4.35-5.55); RED CELL DISTRIBUTION WIDTH 14.3 % (11.5-14.0); SEGMENTED NEUTROPHILS % (AUTO) 72.1 % (42-78); WHITE BLOOD COUNT 6.9 10^3/uL (4.0-10.5)
[2020-08-07 13:37] LABS: ALBUMIN 4.2 g/dL (3.5-5.0); ALKALINE PHOSPHATASE 62 U/L (38-126); ANION GAP 10 (5-19); ASPARTATE AMINO TRANSFERASE 12 U/L (17-59); BILIRUBIN,DIRECT 0.3 mg/dL (0.0-0.4); BILIRUBIN,TOTAL 0.5 mg/dL (0.2-1.3); BLOOD UREA NITROGEN 61 mg/dL (7-20); CALCIUM 8.7 mg/dL (8.4-10.2); CARBON DIOXIDE 27 mmol/L (22-30); CHLORIDE 102 mmol/L (98-107); GLUCOSE 103 mg/dL (75-110); POTASSIUM 4.2 mmol/L (3.6-5.0); TOTAL PROTEIN 6.8 g/dL (6.3-8.2)
[2020-08-07] MEDS ORDERED: LORAZEPAM INJ 2 MG/1 ML VIAL IV ONE (14:13)
[2020-08-07] MEDS ORDERED: NITROGLYCERIN/D5W 50 MG/250 ML RTUINJ IV PRN (14:13)
[2020-08-07] MEDS ORDERED: CLONIDINE HCL 0.2 MG TABLET PO ONE (16:05)
[2020-08-07] MEDS ORDERED: FUROSEMIDE INJ/PF 40 MG/4 ML SDV IV ONE (16:06)
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
[2020-08-07 17:00] LABS: URINE AMPHETAMINES SCREEN NEGATIVE; URINE BARBITURATES SCREEN NEGATIVE; URINE BENZODIAZEPINES SCREEN NEGATIVE; URINE MARIJUANA (THC) SCREEN NEGATIVE; URINE METHADONE SCREEN NEGATIVE; URINE PHENCYCLIDINE SCREEN NEGATIVE
[2020-08-07 17:03] LABS: URINE COCAINE SCREEN UNCONFIRMED POSITIVE
[2020-08-07 18:09] VITALS: BP 184/103
--- NOTE | 2020-08-07 22:42 | EKG REPORT ---
SEVERITY:- ABNORMAL ECG - SINUS RHYTHM NONSPECIFIC T ABNORMALITIES, LATERAL LEADS BORDERLINE PROLONGED QT INTERVAL : Confirmed by: Steven Escobar 07-Aug-2020 22:40:43
== END 2020-08-07 18:20 | disposition home or self-care (01) ==
LOC: ER 13:00
DX: I16.1 Hypertensive emergency (principal); I13.2 Hypertensive heart and chronic kidney disease with heart failure and with stage 5 chronic kidney disease, or end stage renal disease; N18.6 End stage renal disease; I50.9 Heart failure, unspecified; Z99.2 Dependence on renal dialysis; F41.9 Anxiety disorder, unspecified; J44.9 Chronic obstructive pulmonary disease, unspecified; I25.2 Old myocardial infarction
CPT/HCPCS: 93005; 99284; 96375; 96365; 96366; 36415; 87086; 85025; 80053; 80307; 93010; J3490 ×2; J2060